=== PATIENT | male | born 1935 | race Caucasian/White ===

== ENCOUNTER → 2016-11-03 | Outpatient (REF) | payer MEDICARE, OTHER ==
[~2016-11-03] MED LIST: /DULO30CA OR; /PANT40TA OR; /PRAV20TA PO; /ROPI5TA PO; /TAMS4CA OR; ADVI200C5 PO; ALTA10CA OR; ANTI25TA OR; ARIC10TA OR; ARIC10TA PO; ARIC5TAB OR; ASPI81TA83 OR; ASPI81TAEC PO; ATOR40TA PO; CIPR500T3 PO; CIPR500T89 PO; CLOP75TA2 PO; COMBAER6 INH; COMBIN INH; CYM; CYMB1CAP4 PO; DEPA500T2 OR; DEPA500T2 PO; DETR4CAP PO; DYMI137S; FERR325T3 PO; FISH120012 PO; FOLBTAB3 PO; FOLI1TAB OR; FURO20TA2 PO; GABA-283 PO; GENE10SO PO; GLIM2TAB PO; HYDR25TA6 OR; HYDR25TA8 OR; IBUP200C PO; IMIQ5CRE EXT; JANUVIA PO; KEPP500T6 PO; KEPPRA OR; L-ME1TAB6 PO; LACT10SO8 OR; LEVA750T OR; LEVO25TA4 PO; LISI-542 PO; LOPR50TA OR; LOVAZA PO; MAGN500T2 OR; MECL-68 PO; MECL25TA2 OR; METF-414 PO; METF500T4 OR; METO25TAB PO; METR500T10 PO; MULTIVIT PO; NIAS10003 OR; NICO21PAT TD; PANT40TA2 PO; PSEU30SY OR; REQU1TAB16 PO; REQU2TAB3 PO; REST0.05 OU; ROPI1TAB PO; SALI0.653; SIMV20TA2 OR; TOPI100T OR; VITA100037 PO; VITA100066 PO; VITMTA PO; [UNRECOGNIZED DRUG - CODE] OU; [UNRECOGNIZED DRUG - CODE] PO; vesicare PO
[2016-11-03 19:26] LABS: MEAN CORPUSCULAR HEMOGLOBIN 32.5 pg (27.0-33.0); MEAN CORPUSCULAR HGB CONC 33.6 g/dl (32.0-36.5); RED CELL DISTRIBUTION WIDTH 13.8 % (11.5-14.5); WHITE BLOOD COUNT 12.1 K/mm3 (4.0-10.0)
[2016-11-03 19:51] LABS: VITAMIN B12 LEVEL 1553 PG/ML (247-911)
[2016-11-03 19:52] LABS: FOLATE > 24.0 NG/ML (>5.4)
[2016-11-03 19:54] LABS: ALBUMIN 3.2 GM/DL (3.2-5.2); ALBUMIN/GLOBULIN RATIO 0.82 (1.00-1.93); ALKALINE PHOSPHATASE 51 U/L (45-117); ALT/SGPT 25 U/L (12-78); ANION GAP 10 MEQ/L (8-16); AST/SGOT 16 U/L (15-37); BILIRUBIN,TOTAL 0.4 MG/DL (0.2-1.0); BLOOD UREA NITROGEN 21 MG/DL (7-18); CARBON DIOXIDE LEVEL 31 MEQ/L (21-32); CHLORIDE LEVEL 102 MEQ/L (98-107); CREATININE FOR GFR 0.95 MG/DL (0.70-1.30); FREE T4 1.03 NG/DL (0.76-1.46); GLOMERULAR FILTRATION RATE > 60.0 (>35); GLUCOSE, FASTING 85 MG/DL (83-110); POTASSIUM SERUM 4.1 MEQ/L (3.5-5.1); SODIUM LEVEL 143 MEQ/L (136-145); TOTAL PROTEIN 7.1 GM/DL (6.4-8.2)
== END ==
LOC: M SFHCADAM 14:33
PROVIDERS: ATTEND Family Medicine
DX: R29.898 Other symptoms and signs involving the musculoskeletal system (principal); G47.10 Hypersomnia, unspecified; G62.9 Polyneuropathy, unspecified; R82.99 Other abnormal findings in urine; Z79.899 Other long term (current) drug therapy
CPT/HCPCS: 80053; 80164; 81002; 82607; 82746; 83036; 84439; 84443; 85027; 85652; 86140; 87086; G0463

== ENCOUNTER → 2016-12-29 | Outpatient (CLI) | payer MEDICARE, OTHER ==
[2016-12-29 18:18] LABS: ALBUMIN 3.4 GM/DL (3.2-5.2); ALBUMIN/GLOBULIN RATIO 0.83 (1.00-1.93); ALKALINE PHOSPHATASE 48 U/L (45-117); ALT/SGPT 25 U/L (12-78); ANION GAP 7 MEQ/L (8-16); AST/SGOT 18 U/L (15-37); BILIRUBIN,TOTAL 0.3 MG/DL (0.2-1.0); BLOOD UREA NITROGEN 22 MG/DL (7-18); CALCIUM LEVEL 8.9 MG/DL (8.8-10.2); CARBON DIOXIDE LEVEL 35 MEQ/L (21-32); CHLORIDE LEVEL 101 MEQ/L (98-107); CHOLESTEROL LEVEL 115 MG/DL (<200); CREATININE FOR GFR 1.02 MG/DL (0.70-1.30); FERRITIN 40 NG/ML (26-388); FREE T4 0.95 NG/DL (0.76-1.46); GLOMERULAR FILTRATION RATE > 60.0 (>35); GLUCOSE, FASTING 113 MG/DL (83-110); PERCENT SATURATION 15.5 % (19.7-37.4); POTASSIUM SERUM 5.1 MEQ/L (3.5-5.1); SODIUM LEVEL 143 MEQ/L (136-145); TOTAL IRON BINDING CAPACITY 335 UG/DL (250-450); TOTAL PROTEIN 7.5 GM/DL (6.4-8.2); TRIGLYCERIDES LEVEL 207 MG/DL (<150)
[2016-12-29 18:40] LABS: MEAN CORPUSCULAR HEMOGLOBIN 30.8 pg (27.0-33.0); MEAN CORPUSCULAR HGB CONC 31.8 g/dl (32.0-36.5); MEAN CORPUSCULAR VOLUME 96.9 fl (80.0-96.0); RED CELL DISTRIBUTION WIDTH 13.8 % (11.5-14.5); RETIC HEMOGLOBIN CONTENT CHr 29.8 PG (24-36); RETICULOCYTE % ADVIA2120 2.4 % (0.5-1.5); WHITE BLOOD COUNT 10.6 K/mm3 (4.0-10.0)
== END ==
LOC: M SMT 10:39
PROVIDERS: ATTEND Family Medicine
DX: K62.7 Radiation proctitis (principal); D50.9 Iron deficiency anemia, unspecified; I25.10 Atherosclerotic heart disease of native coronary artery without angina pectoris; E03.9 Hypothyroidism, unspecified; E11.40 Type 2 diabetes mellitus with diabetic neuropathy, unspecified

== ENCOUNTER → 2017-02-27 | Outpatient (REF) | payer MEDICARE, OTHER ==
[2017-02-27 20:23] LABS: MICROSCOPIC INDICATED? MAN YES (NO)
[2017-02-27 20:24] LABS: BACTERIA, URINE MOD AMOUNT; HYALINE CAST, URINE NONE SEEN /lpf (0-1); MICROSCOPIC EXAM PERFORMED; RBC, URINE TNTC /hpf (0-3); SQUAMOUS EPITHELIAL CELL URINE NONE SEEN /hpf (SMALL AMT)
== END ==
LOC: M LAB REF 19:10
PROVIDERS: ATTEND Family Medicine
DX: R31.9 Hematuria, unspecified (principal)
CPT/HCPCS: 81000; 87086; 99497; G0463

== ENCOUNTER → 2017-03-19 | Outpatient (CLI) | payer MEDICARE, OTHER | LOC: M SMT 15:15 | PROVIDERS: ATTEND Urology | DX: C61 Malignant neoplasm of prostate (principal); Z79.899 Other long term (current) drug therapy; E78.00 Pure hypercholesterolemia, unspecified; R60.9 Edema, unspecified; E11.9 Type 2 diabetes mellitus without complications; I10 Essential (primary) hypertension; F17.210 Nicotine dependence, cigarettes, uncomplicated; Z95.5 Presence of coronary angioplasty implant and graft ==

== ENCOUNTER → 2017-03-19 | Outpatient (CLI) | payer MEDICARE, OTHER ==
[2017-03-19 17:02] LABS: ANION GAP 8 MEQ/L (8-16); BLOOD UREA NITROGEN 18 MG/DL (7-18); CALCIUM LEVEL 9.1 MG/DL (8.8-10.2); CARBON DIOXIDE LEVEL 31 MEQ/L (21-32); CHLORIDE LEVEL 102 MEQ/L (98-107); CREATININE FOR GFR 1.07 MG/DL (0.70-1.30); GLOMERULAR FILTRATION RATE > 60.0 (>35); GLUCOSE, FASTING 150 MG/DL (83-110); POTASSIUM SERUM 4.5 MEQ/L (3.5-5.1); SODIUM LEVEL 141 MEQ/L (136-145)
[2017-03-19 18:20] LABS: MEAN CORPUSCULAR HEMOGLOBIN 30.5 pg (27.0-33.0); MEAN CORPUSCULAR HGB CONC 31.6 g/dl (32.0-36.5); MEAN CORPUSCULAR VOLUME 96.5 fl (80.0-96.0); RED CELL DISTRIBUTION WIDTH 14.8 % (11.5-14.5); WHITE BLOOD COUNT 9.6 K/mm3 (4.0-10.0)
== END ==
LOC: M SMT 15:19
PROVIDERS: ATTEND Internal Medicine Cardiovascular Disease
DX: E78.00 Pure hypercholesterolemia, unspecified (principal); R60.9 Edema, unspecified; E11.9 Type 2 diabetes mellitus without complications; I10 Essential (primary) hypertension; F17.210 Nicotine dependence, cigarettes, uncomplicated; Z95.5 Presence of coronary angioplasty implant and graft

== ENCOUNTER → 2017-03-23 | Outpatient (CLI) | payer MEDICARE, OTHER | LOC: M SMT 15:12 | PROVIDERS: ATTEND Physician Assistant Medical | DX: R79.81 Abnormal blood-gas level (principal) ==

== ENCOUNTER → 2017-04-06 | Outpatient (REF) | payer MEDICARE, OTHER ==
[2017-04-06 12:13] LABS: MEAN CORPUSCULAR HEMOGLOBIN 29.3 pg (27.0-33.0); MEAN CORPUSCULAR HGB CONC 32.7 g/dl (32.0-36.5); MEAN CORPUSCULAR VOLUME 89.7 fl (80.0-96.0); RED CELL DISTRIBUTION WIDTH 15.1 % (11.5-14.5); WHITE BLOOD COUNT 10.3 K/mm3 (4.0-10.0)
[2017-04-06 13:30] LABS: ALBUMIN 3.4 GM/DL (3.2-5.2); ALBUMIN/GLOBULIN RATIO 0.81 (1.00-1.93); ALKALINE PHOSPHATASE 58 U/L (45-117); ANION GAP 10 MEQ/L (8-16); AST/SGOT 26 U/L (15-37); BILIRUBIN,TOTAL 0.3 MG/DL (0.2-1.0); BLOOD UREA NITROGEN 15 MG/DL (7-18); CALCIUM LEVEL 8.7 MG/DL (8.8-10.2); CARBON DIOXIDE LEVEL 27 MEQ/L (21-32); CHLORIDE LEVEL 103 MEQ/L (98-107); FERRITIN 11 NG/ML (26-388); GLOMERULAR FILTRATION RATE > 60.0 (>35); GLUCOSE, FASTING 167 MG/DL (83-110); PERCENT SATURATION 6.4 % (19.7-37.4); POTASSIUM SERUM 4.4 MEQ/L (3.5-5.1); SODIUM LEVEL 140 MEQ/L (136-145); TOTAL IRON BINDING CAPACITY 357 UG/DL (250-450); TOTAL PROTEIN 7.6 GM/DL (6.4-8.2)
[2017-04-06 13:33] LABS: ALT/SGPT 36 U/L (12-78)
== END ==
LOC: M LABNEURO 11:26
PROVIDERS: ATTEND Family Medicine
DX: D50.9 Iron deficiency anemia, unspecified (principal); E11.40 Type 2 diabetes mellitus with diabetic neuropathy, unspecified; R79.9 Abnormal finding of blood chemistry, unspecified

== ENCOUNTER → 2017-04-06 | Outpatient (REF) | payer MEDICARE, OTHER | LOC: M LABNEURO 11:28 | PROVIDERS: ATTEND Physician Assistant Medical | DX: R79.9 Abnormal finding of blood chemistry, unspecified (principal) ==

== ENCOUNTER → 2017-04-19 | Outpatient (REF) | payer MEDICARE, OTHER ==
[~2017-04-19] MED LIST changes: +ALBU83IN INH; -ARIC10TA PO; +ARIC1TAB2 PO; -ATOR40TA PO; +ATOR40TA75 PO; +AZIT-12 PO; +CEFD1CAP8 PO; +CEFT500T3 PO; +DOXY100C37 PO; +DOXY100T PO; +FLOM5CAP PO; +ISOS30TA4 PO; +KEPP10002 PO; +KEPP1TAB PO; -KEPP500T6 PO; +LEVO25TA5 PO; +LIDO1OIN2 TOP; +LIDO5OIN28 TOP; +METF10004 PO; +METO25TA4 PO; +METR1TAB66 PO; -METR500T10 PO; +PRED20TA PO; +PRESCAP6 PO; +REST0.05 OP; +SALI0.6523; -SALI0.653; +SERO1TAB3 PO; +TYLE650T35 PO; +areds PO; +oxygen
== END ==
LOC: M LABSMT 14:06
PROVIDERS: ATTEND Physician Assistant
DX: R31.0 Gross hematuria (principal)

== ENCOUNTER → 2017-04-20 | Outpatient (CLI) | payer MEDICARE, OTHER ==
--- NOTE | 2017-04-20 16:39 | REP ---
Clinical: Microscopic hematuria . Comparison: 03/07/2016 . Technique: PA and lateral. Findings: The mediastinum and cardiac silhouette are normal. The lung morrison demonstrate chronic interstitial changes without acute consolidation, effusion, or pneumothorax. The skeletal structures are intact and normal. Impression: 1. No acute cardiopulmonary process. Signed by Ramirez Koenig MD 04/20/2017 04:30 P
[2017-04-20 19:28] LABS: MEAN CORPUSCULAR HGB CONC 31.8 g/dl (32.0-36.5); MEAN CORPUSCULAR VOLUME 88.2 fl (80.0-96.0); RED CELL DISTRIBUTION WIDTH 15.2 % (11.5-14.5); WHITE BLOOD COUNT 9.9 K/mm3 (4.0-10.0)
[2017-04-20 19:35] LABS: INR 0.92
[2017-04-20 19:37] LABS: ANION GAP 9 MEQ/L (8-16); BLOOD UREA NITROGEN 14 MG/DL (7-18); CALCIUM LEVEL 8.7 MG/DL (8.8-10.2); CARBON DIOXIDE LEVEL 26 MEQ/L (21-32); CHLORIDE LEVEL 103 MEQ/L (98-107); CREATININE FOR GFR 0.97 MG/DL (0.70-1.30); GLOMERULAR FILTRATION RATE > 60.0 (>35); GLUCOSE, FASTING 177 MG/DL (83-110); POTASSIUM SERUM 4.2 MEQ/L (3.5-5.1); SODIUM LEVEL 138 MEQ/L (136-145)
== END ==
LOC: M WUC 16:14
PROVIDERS: ATTEND Urology
DX: R31.29 Other microscopic hematuria (principal)

== ENCOUNTER → 2017-05-03 | Day surgery (SDC) | payer MEDICARE, OTHER ==
[~2017-05-03] VITALS: Ht 182.9 cm; Wt 100.2 kg
[~2017-05-03] MED LIST changes: +ACETAMINOPHEN 650MG ER TAB (TYLENOL ARTHRITIS) PO SCH; +ALBUTEROL 6.7GM INHALER **FOR ANES. CART/OMNICELL ONLY As Ordered ONE; +ALBUTEROL SULFATE 2.5 MG/0.5 ML INH NEB SOLN INH ONE; +CIPROFLOXACIN 500 MG TAB PO SCH; +ESMOLOL INJ 100MG/10ML VIAL As Ordered ONE; +GLYCOPYRROLATE INJ 0.2 MG/ML 2 ML VIAL As Ordered ONE; +LIDOCAINE 2% INJ 100 MG/5 ML SDV (FOR ANES.) As Ordered ONE; +LR 1,000 ML IV ONE; +LR 1,000 ML IV SCH; +MEPERIDINE INJ 25 MG/ML VIAL (J2175) IV PRN; +METOCLOPRAMIDE INJ 10MG/2ML VIAL (J2765) IV PRN; +MIDAZOLAM INJ 2 MG/2 ML VIAL (J2250) As Ordered ONE; +NEOSTIGMINE 1MG/ML 5 ML SYRINGE (J2710) As Ordered ONE; +ONDANSETRON 4MG/2ML VIAL (J2405) As Ordered ONE; +ONDANSETRON 4MG/2ML VIAL (J2405) IV PRN; +PHENYLephrine HCL 500 MCG/5 ML (100MCG/ML) SYRINGE (J2370) As Ordered ONE; +PROPOFOL 200 MG/20 ML VIAL As Ordered ONE; +ROCURONIUM BROMIDE 50 MG/5 ML VIAL/SYRINGE As Ordered ONE; +SUCCINYLCHOLINE 100 MG/5 ML SYRINGE (J0330) As Ordered ONE; +dexameTHASONE 4 MG/ML 1ML VIAL (J1100) As Ordered ONE; +fentaNYL 100 MCG/2 ML INJECTION (J3010) As Ordered ONE; +fentaNYL 100 MCG/2 ML INJECTION (J3010) IV PRN
[2017-05-03 15:35] VITALS: BP 155/75
--- NOTE | 2017-05-04 22:35 | RO ---
DATE OF PROCEDURE: 05/03/2017 PREPROCEDURE DIAGNOSIS: Bladder tumor. POSTPROCEDURE DIAGNOSIS: Bladder tumor lateral wall near the bladder neck, about 2 cm in diameter. FINDINGS: Bladder tumor about 2 cm in diameter near the bladder neck at the level of the right lateral side of the bladder wall and bladder neck. PROCEDURE: Cystoscopy, plus exam under anesthesia, plus transurethral resection of bladder tumor. SURGEON: Michael Bauer MD METALLURGY TEACHER: None. ANESTHESIA: General. COMPLICATIONS: None. ESTIMATED BLOOD LOSS: N/A. HISTORY OF THE PRESENT ILLNESS: An 81-year-old male patient who had a cystoscopy performed at [facility] [place], which actually showed a bladder tumor at the level of the bladder neck and lateral wall. For this reason, he has consented for a cystoscopy, plus exam under anesthesia, plus transurethral resection of bladder tumor. DESCRIPTION OF PROCEDURE: In a patient under general anesthesia in supine modified low lithotomy position after prepping and draping the area of concern, which included the entire genitalia and abdomen, we started by introducing a cystoscope, 21-Andorran in diameter with a 30-degree lens. The urethral meatus, penile urethra, bulbar urethra and membranous urethra were totally normal. The prostate had lateral lobes touching, one small middle lobe. The trigone was intact and both ureteral orifices were seen excreting clear urine. The bladder had multiple trabeculations. It had a 2 cm area near the bladder neck on the right side of the patient and very lateral close to the right ureteral orifice, flat and erythematous lesion. At that moment in time, we grabbed the resectoscope and resected all the area up to the bladder neck, including some prostatic tissue. We sent the chips for permanent pathology analysis, we fulgurated the base and then took out the resectoscope and placed the 20-Andorran Pollack catheter, three-way, plugged the three-way and put the Oneill to gravity, inflated the balloon to 20 mL. PLAN: The patient will go home today with a Oneill. He will come back on Sunday for a voiding trial. He will go home with antibiotic and pain medication. There were no complications of surgery.
== END | disposition home or self-care (01) ==
LOC: M SDC 08:29
PROVIDERS: ATTEND Urology
DX: D30.3 Benign neoplasm of bladder (principal); E11.40 Type 2 diabetes mellitus with diabetic neuropathy, unspecified; K62.7 Radiation proctitis; I11.9 Hypertensive heart disease without heart failure; C61 Malignant neoplasm of prostate; E03.9 Hypothyroidism, unspecified; J44.9 Chronic obstructive pulmonary disease, unspecified; R19.7 Diarrhea, unspecified; R21 Rash and other nonspecific skin eruption; F03.90 Unspecified dementia, unspecified severity, without behavioral disturbance, psychotic disturbance, mood disturbance, and anxiety; G43.909 Migraine, unspecified, not intractable, without status migrainosus; R56.9 Unspecified convulsions; J45.909 Unspecified asthma, uncomplicated; G47.33 Obstructive sleep apnea (adult) (pediatric); G47.10 Hypersomnia, unspecified; I25.10 Atherosclerotic heart disease of native coronary artery without angina pectoris; M48.06 Spinal stenosis, lumbar region; R29.898 Other symptoms and signs involving the musculoskeletal system; J96.21 Acute and chronic respiratory failure with hypoxia; R60.9 Edema, unspecified; E11.51 Type 2 diabetes mellitus with diabetic peripheral angiopathy without gangrene; R06.02 Shortness of breath; I73.9 Peripheral vascular disease, unspecified; I10 Essential (primary) hypertension; F17.210 Nicotine dependence, cigarettes, uncomplicated; I65.29 Occlusion and stenosis of unspecified carotid artery; R06.83 Snoring; E78.00 Pure hypercholesterolemia, unspecified; Z91.041 Radiographic dye allergy status; Z88.8 Allergy status to other drugs, medicaments and biological substances; Z79.899 Other long term (current) drug therapy; Z79.82 Long term (current) use of aspirin; Z79.84 Long term (current) use of oral hypoglycemic drugs; Z92.21 Personal history of antineoplastic chemotherapy; Z85.828 Personal history of other malignant neoplasm of skin; Z95.5 Presence of coronary angioplasty implant and graft; Z78.9 Other specified health status
CPT/HCPCS: 36415; 52235; 86850; 86900; 86901; 88307; J0330; J0690; J2250; J2370; J2405; J2710; J3010

== ENCOUNTER → 2017-05-14 | Outpatient (REF) | payer MEDICARE, OTHER ==
[~2017-05-14] MED LIST changes: -ACETAMINOPHEN 650MG ER TAB (TYLENOL ARTHRITIS) PO SCH; -ALBUTEROL 6.7GM INHALER **FOR ANES. CART/OMNICELL ONLY As Ordered ONE; -ALBUTEROL SULFATE 2.5 MG/0.5 ML INH NEB SOLN INH ONE; -CIPROFLOXACIN 500 MG TAB PO SCH; -ESMOLOL INJ 100MG/10ML VIAL As Ordered ONE; -GLYCOPYRROLATE INJ 0.2 MG/ML 2 ML VIAL As Ordered ONE; -LIDOCAINE 2% INJ 100 MG/5 ML SDV (FOR ANES.) As Ordered ONE; -LR 1,000 ML IV ONE; -LR 1,000 ML IV SCH; -MEPERIDINE INJ 25 MG/ML VIAL (J2175) IV PRN; -METOCLOPRAMIDE INJ 10MG/2ML VIAL (J2765) IV PRN; -MIDAZOLAM INJ 2 MG/2 ML VIAL (J2250) As Ordered ONE; -NEOSTIGMINE 1MG/ML 5 ML SYRINGE (J2710) As Ordered ONE; -ONDANSETRON 4MG/2ML VIAL (J2405) As Ordered ONE; -ONDANSETRON 4MG/2ML VIAL (J2405) IV PRN; -PHENYLephrine HCL 500 MCG/5 ML (100MCG/ML) SYRINGE (J2370) As Ordered ONE; -PROPOFOL 200 MG/20 ML VIAL As Ordered ONE; -ROCURONIUM BROMIDE 50 MG/5 ML VIAL/SYRINGE As Ordered ONE; -SUCCINYLCHOLINE 100 MG/5 ML SYRINGE (J0330) As Ordered ONE; -dexameTHASONE 4 MG/ML 1ML VIAL (J1100) As Ordered ONE; -fentaNYL 100 MCG/2 ML INJECTION (J3010) As Ordered ONE; -fentaNYL 100 MCG/2 ML INJECTION (J3010) IV PRN
== END ==
LOC: M SMT 17:01
PROVIDERS: ATTEND Nurse Practitioner Women's Health
DX: R31.0 Gross hematuria (principal)

== ENCOUNTER → 2017-05-21 | Outpatient (REF) | payer MEDICARE, OTHER | LOC: M SMT 16:14 | PROVIDERS: ATTEND Urology | DX: R30.0 Dysuria (principal) ==

== ENCOUNTER → 2017-06-20 | Outpatient (REF) | payer MEDICARE, OTHER | LOC: M SMT 17:12 | PROVIDERS: ATTEND Urology | DX: R39.9 Unspecified symptoms and signs involving the genitourinary system (principal) | CPT/HCPCS: 51798; 81001; 87086; G0463 ==

== ENCOUNTER 2017-08-05 14:47 | Emergency (ER) | payer MEDICARE, OTHER ==
[~2017-08-05] VITALS: Ht 182.9 cm; Wt 100.0 kg
[~2017-08-05 14:47] MED LIST changes: -AZIT-12 PO; -CEFD1CAP8 PO; -CEFT500T3 PO; -DOXY100C37 PO; -DOXY100T PO; -KEPP10002 PO; -LIDO5OIN28 TOP; -PRED20TA PO; -PRESCAP6 PO; -REST0.05 OP; -SERO1TAB3 PO; -oxygen
[2017-08-05] MEDS ORDERED: SERO1TAB3 PO (15:08)
[2017-08-05] MEDS ORDERED: oxygen (15:08)
[2017-08-05] MEDS ORDERED: REST0.05 OP (15:08)
[2017-08-05] MEDS ORDERED: IPRATROPIUM 0.5MG/ALBUTEROL 2.5MG INH SOL UD 3ML (DUONEB)(J7620) NEB ONE (16:00)
[2017-08-05 16:09] LABS: BASO # 0.1 10^3/uL (0.0-0.2); BASO % 0.5 % (0.0-1.0); EOS # 0.1 10^3/uL (0.0-0.50); LYMPH # 1.8 10^3/uL (1.5-4.5); LYMPH % 17.1 % (24.0-44.0); MEAN CORPUSCULAR HEMOGLOBIN 25.4 pg (27.0-33.0); MEAN CORPUSCULAR HGB CONC 30.6 g/dl (32.0-36.5); MEAN CORPUSCULAR VOLUME 83.3 fl (80.0-96.0); MONO # 1.1 10^3/uL (0.0-0.8); MONO % 9.9 % (0.0-5.0); NEUTROPHILS # 7.5 10^3/uL (1.8-7.7); NEUTROPHILS % 70.5 % (36.0-66.0); PLATELET COUNT, AUTOMATED 271 10^3/uL (150-450); RED CELL DISTRIBUTION WIDTH 17.8 % (11.5-14.5); WHITE BLOOD COUNT 10.6 10^3/uL (4.0-10.0)
[2017-08-05 16:21] LABS: ALBUMIN 3.5 GM/DL (3.2-5.2); ALBUMIN/GLOBULIN RATIO 0.81 (1.00-1.93); ALKALINE PHOSPHATASE 57 U/L (45-117); ALT/SGPT 17 U/L (12-78); ANION GAP 7 MEQ/L (8-16); AST/SGOT 10 U/L (15-37); BILIRUBIN,DIRECT < 0.1 MG/DL (0.0-0.2); BILIRUBIN,TOTAL 0.3 MG/DL (0.2-1.0); BLOOD UREA NITROGEN 17 MG/DL (7-18); CALCIUM LEVEL 9.5 MG/DL (8.8-10.2); CARBON DIOXIDE LEVEL 30 MEQ/L (21-32); CHLORIDE LEVEL 102 MEQ/L (98-107); CREATININE FOR GFR 0.96 MG/DL (0.70-1.30); GLOMERULAR FILTRATION RATE > 60.0 (>35); GLUCOSE, FASTING 152 MG/DL (83-110); POTASSIUM SERUM 4.1 MEQ/L (3.5-5.1); SODIUM LEVEL 139 MEQ/L (136-145); TOTAL PROTEIN 7.8 GM/DL (6.4-8.2)
[2017-08-05 16:39] LABS: INR 0.95
--- NOTE | 2017-08-05 17:00 | REP ---
Portable chest, 04:03 p.m., single AP view, patient sitting: Comparison is 04/20/2017. The lung morrison are clear. The cardiac size is normal. The juele, mediastinum, and bony thorax are unremarkable. Impression: Negative portable chest. There is no interval change. Signed by Johnny Mcmullen MD 08/05/2017 04:51 P
[2017-08-05] MEDS ORDERED: PRED20TA PO (17:38)
[2017-08-05] MEDS ORDERED: CEFT500T3 PO (17:40)
[2017-08-05] MEDS ORDERED: methylPREDNISolone INJ 125 MG/2 ML VIAL (J2930) IV ONE (17:45)
[2017-08-05] MEDS ORDERED: DOXY100C37 PO (17:53)
--- NOTE | 2017-08-05 19:10 | REPUSA ---
CLINICAL HISTORY: Edema. COMMENTS: Real time sonography with duplex doppler of the extremities bilaterally was performed with attention to the major deep venous structures. Evaluation reveals the common femoral, superficial femoral and popliteal veins bilaterally to be comp letely compressible without intraluminal thrombus. There is normal spontaneous phasic flow and augmen tation in all deep veins. The greater saphenous/common femoral vein junctions are patent bilaterally. IMPRESSION: No evidence of DVT in the lower extremities bilaterally. Thank you for your kind referral of this patient.
[2017-08-05 19:46] VITALS: BP 182/79
--- NOTE | 2017-08-06 21:01 | ECGEPIP ---
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
== END 2017-08-05 19:47 | disposition home or self-care (01) ==
LOC: M ED 14:47
DX: J44.1 Chronic obstructive pulmonary disease with (acute) exacerbation (principal)

== ENCOUNTER 2017-08-07 13:44 | Inpatient (IN) | payer MEDICARE, OTHER ==
[~2017-08-07] VITALS: Ht 182.9 cm; Wt 94.5 kg
[2017-08-07] MEDS: HumaLOG INSULIN (NovoLOG) PER UNIT SC SCH (01:53)
[~2017-08-07 13:44] MED LIST changes: +CEFT500T3 PO; +DOXY100C37 PO; +PRED20TA PO; +REST0.05 OP; +SERO1TAB3 PO; +oxygen
[2017-08-07] MEDS ORDERED: IPRATROPIUM 0.5MG/ALBUTEROL 2.5MG INH SOL UD 3ML (DUONEB)(J7620) NEB ONE (16:45)
[2017-08-07 17:41] LABS: BASO % 0.2 % (0.0-1.0); IMMATURE GRANULOCYTE % 0.8 % (0-0); LYMPH # 1.4 10^3/uL (1.5-4.5); MEAN CORPUSCULAR HEMOGLOBIN 24.8 pg (27.0-33.0); MEAN CORPUSCULAR HGB CONC 30.5 g/dl (32.0-36.5); MEAN CORPUSCULAR VOLUME 81.3 fl (80.0-96.0); MONO # 0.4 10^3/uL (0.0-0.8); MONO % 2.4 % (0.0-5.0); NEUTROPHILS # 13.8 10^3/uL (1.8-7.7); NEUTROPHILS % 87.6 % (36.0-66.0); PLATELET COUNT, AUTOMATED 273 10^3/uL (150-450); RED CELL DISTRIBUTION WIDTH 17.8 % (11.5-14.5); WHITE BLOOD COUNT 15.7 10^3/uL (4.0-10.0)
[2017-08-07 17:55] LABS: ABG HCO3 28.1 MEQ/L (22.0-26.0); ABG PARTIAL PRESSURE CO2 40.5 mmHg (35.0-45.0); ABG PARTIAL PRESSURE O2 67.7 mmHg (75.0-100.0); ABG STANDARD HCO3 27.9 MEQ/L (22.0-26.0); ABG TOTAL CO2 29.3 MEQ/L (23.0-31.0); ABG pH (ARTERIAL) 7.459 UNITS (7.350-7.450)
[2017-08-07 18:21] LABS: ALBUMIN 3.6 GM/DL (3.2-5.2); ALBUMIN/GLOBULIN RATIO 0.84 (1.00-1.93); ALKALINE PHOSPHATASE 50 U/L (45-117); ALT/SGPT 18 U/L (12-78); AST/SGOT 7 U/L (15-37); BILIRUBIN,DIRECT < 0.1 MG/DL (0.0-0.2); BILIRUBIN,TOTAL 0.3 MG/DL (0.2-1.0); TOTAL PROTEIN 7.9 GM/DL (6.4-8.2)
[2017-08-07 18:22] LABS: ANION GAP 9 MEQ/L (8-16); BLOOD UREA NITROGEN 23 MG/DL (7-18); CALCIUM LEVEL 9.5 MG/DL (8.8-10.2); CARBON DIOXIDE LEVEL 29 MEQ/L (21-32); CHLORIDE LEVEL 100 MEQ/L (98-107); GLOMERULAR FILTRATION RATE > 60.0 (>35); GLUCOSE, FASTING 148 MG/DL (83-110); POTASSIUM SERUM 4.1 MEQ/L (3.5-5.1); SODIUM LEVEL 138 MEQ/L (136-145)
--- NOTE | 2017-08-07 18:49 | REP ---
CHEST PA AND LATERAL: 08/07/2017. Clinical history: Dyspnea and cough. Comparison: 08/05/2017, 04/20/2017. Findings: Sternotomy wires are again seen but without cardiomegaly, vascular redistribution or pulmonary edema. Some minor basilar fibrotic changes noted. No effusion, infiltrate, atelectasis or mass. The mediastinal, hilar and aortic contours grossly intact. Airway intact. The bony thorax shows no acute compression deformity or focal lesion. Impression: 1. No acute cardiopulmonary disease. Stable chest. Signed by Cam Sims MD 08/07/2017 08:27 P
--- NOTE | 2017-08-07 19:23 | ECGEPIP ---
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
[2017-08-07] MEDS ORDERED: NS 1,000 ML IV ONE (20:00)
[2017-08-07] MEDS ORDERED: AZITHROMYCIN INJ 500 MG, VIAL MATE ADAPTER 1 EACH in D5W 250 ML IV ONE (20:15)
[2017-08-07] MEDS ORDERED: cefTRIAXone SOD 1 GM in D5W 50 ML IV ONE (20:15)
[2017-08-07 20:47] LABS: MAGNESIUM LEVEL 1.9 MG/DL (1.8-2.4)
[2017-08-07] MEDS ORDERED: KEPP10002 PO (20:49)
[2017-08-07] MEDS ORDERED: PRESCAP6 PO (20:49)
[2017-08-07] MEDS ORDERED: PRED20TA PO (20:49)
[2017-08-07] MEDS ORDERED: DOXY100T PO (20:49)
[2017-08-07] MEDS ORDERED: LIDO5OIN28 TOP (20:51)
[2017-08-07] MEDS ORDERED: REST0.05 OU (20:51)
[2017-08-07] MEDS ORDERED: QUEtiapine FUMARATE 25 MG TAB PO SCH (21:00)
[2017-08-07] MEDS ORDERED: ACETAMINOPHEN TAB 650MG DOSE (2X325MG) PO PRN (21:15)
[2017-08-07] MEDS ORDERED: ONDANSETRON 4MG/2ML VIAL (J2405) IV PRN (21:15)
[2017-08-07] MEDS ORDERED: IPRATROPIUM 0.5MG/ALBUTEROL 2.5MG INH SOL UD 3ML (DUONEB)(J7620) NEB PRN (21:15)
[2017-08-07] MEDS ORDERED: amLODIPine 5 MG TAB PO ONE (22:15)
[2017-08-07] MEDS ORDERED: LIDOCAINE 5% OINT 30 GM TOP PRN (22:15)
[2017-08-07 22:19] VITALS: BP 179/68
[2017-08-07] MEDS: methylPREDNISolone INJ 125 MG/2 ML VIAL (J2930) IV SCH (22:34)
[2017-08-07] MEDS: DIVALPROEX 500MG *ER* TAB PO SCH (22:46)
[2017-08-07] MEDS: DULoxetine 20 MG CAP (CYMBALTA) PO SCH (22:46)
[2017-08-07] MEDS: rOPINIRole 1MG TAB PO SCH (22:47)
[2017-08-08] MEDS ORDERED: SODIUM CHLORIDE 0.9% 1000 ML IV ONE
[2017-08-08] MEDS ORDERED: GLUCOSE 4 GM CHEW TABLET PO PRN (00:45)
[2017-08-08] MEDS ORDERED: DEXTROSE 50% 50 ML SYRINGE IV PRN (00:45)
[2017-08-08] MEDS ORDERED: GLUCAGON FOR INJ 1 MG VIAL (J1610) SC PRN (00:45)
[2017-08-08 01:20] VITALS: BP 174/78
[2017-08-08] MEDS: IPRATROPIUM 0.5MG/ALBUTEROL 2.5MG INH SOL UD 3ML (DUONEB)(J7620) NEB SCH ×4 (02:31→19:20)
[2017-08-08 02:32] VITALS: O2SAT 97
[2017-08-08 05:36] LABS: BASO % 0.2 % (0.0-1.0); IMMATURE GRANULOCYTE % 1.1 % (0-0); LYMPH # 1.8 10^3/uL (1.5-4.5); LYMPH % 10.7 % (24.0-44.0); MEAN CORPUSCULAR HEMOGLOBIN 25.2 pg (27.0-33.0); MEAN CORPUSCULAR VOLUME 81.3 fl (80.0-96.0); MONO # 0.6 10^3/uL (0.0-0.8); MONO % 3.2 % (0.0-5.0); NEUTROPHILS # 14.4 10^3/uL (1.8-7.7); NEUTROPHILS % 84.8 % (36.0-66.0); PLATELET COUNT, AUTOMATED 258 10^3/uL (150-450); RED CELL DISTRIBUTION WIDTH 17.7 % (11.5-14.5)
[2017-08-08 05:49] LABS: ANION GAP 8 MEQ/L (8-16); CALCIUM LEVEL 9.2 MG/DL (8.8-10.2); CARBON DIOXIDE LEVEL 29 MEQ/L (21-32); CHLORIDE LEVEL 102 MEQ/L (98-107); CREATININE FOR GFR 0.93 MG/DL (0.70-1.30); GLOMERULAR FILTRATION RATE > 60.0 (>35); GLUCOSE, FASTING 172 MG/DL (83-110); POTASSIUM SERUM 4.1 MEQ/L (3.5-5.1); SODIUM LEVEL 139 MEQ/L (136-145)
[2017-08-08 05:50] LABS: BLOOD UREA NITROGEN 21 MG/DL (7-18); FERRITIN 7 NG/ML (26-388)
[2017-08-08 06:00] VITALS: BP 154/62
[2017-08-08] MEDS: methylPREDNISolone INJ 125 MG/2 ML VIAL (J2930) IV SCH ×3 (06:02→22:53)
[2017-08-08] MEDS: HEPARIN SOD (PORCINE) 5000 UNITS/ML VIAL SC SCH ×3 (06:02→21:45)
--- NOTE | 2017-08-08 07:19 | HPE ---
DATE OF ADMISSION: 08/07/2017 TIME PATIENT WAS SEEN: 08/07/2017 at around 9:00 p.m. PRIMARY CARE PROVIDER: Dr. Lucio PATIENT SAFETY COORDINATOR: Dr. Harris CHIEF COMPLAINT: Shortness of breath. 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 The patient was in the emergency room at that time and was given doxycycline and also prednisone. However, the patient's symptoms did not improve much. During the interview, the patient's sister and the patient's were also present to help with some of the history. However, the patient appears to be a very poor historian with slow mentation and poor memory. The patient however denies any chest pain, any abdominal pains, nausea, vomiting, diarrhea, or constipation. He admits to some cough and whitish sputum production. The patient's did state that the patient has increased shortness of breath laying down and it started recently, however, there is no swelling in the extremities. The patient does take Lasix at home for patient's CHF. Otherwise, the patient also has chronic diarrhea which was usually five days out of seven days and gets better for two days. The patient does admit to some urinary incontinence however. ALLERGIES (The patient is allergic to): - RED DYE which gives him GI upset - METFORMIN gives him diarrhea - on report, he is also allergic to CEFUROXIME, CIPROFLOXACIN and both give patient confusion HOME MEDICATIONS (including): - albuterol 2.5 mg inhalation four times a day - Depakote ER 500 mg one tablet by mouth twice a day - doxycycline 100 mg one tablet by mouth twice a day - Cymbalta 20 mg one tablet by mouth twice a day - furosemide 20 mg one tablet by mouth daily - isosorbide mononitrate ER 30 mg one tablet by mouth daily - Keppra 1000 mg one tablet by mouth daily - Synthroid 25 mcg one tablet by mouth daily - lidocaine one topically four times a day as needed - lisinopril 5 mg one tablet by mouth at bedtime - metformin 1000 mg one tablet by mouth twice a day - metoprolol tartrate 25 mg one tablet by mouth daily - pantoprazole 40 mg one tablet by mouth daily - prednisone 20 mg one tablet by mouth three times a day - PreserVision one tablet by mouth twice a day - Seroquel 12.5 mg one tablet by mouth at bedtime - Restasis one drop in each eye twice a day - Requip 2 mg by mouth every evening - Flomax 0.4 mg one tablet by mouth daily PAST MEDICAL HISTORY (including): 1. Hypertension. 2. Coronary artery disease status post CABG times three in 2003. No stent was placed due to rectal bleeding. 3. CHF, appears to be diastolic with ejection fraction of 65%. 4. Hyperlipidemia. 5. Migraine, on Depakote. 6. Seizure disorder from migraine. 7. Type 2 diabetes. 8. Elevated ammonia level. 9. Prostate cancer status post radiation. 10. Vertigo. 11. COPD, likely bronchitis type. 12. Cardiac catheterization in 2003. 13. Squamous cell carcinoma of skin in 1992. 14. Degenerative disc disease. 15. Obstructive sleep apnea, noncompliant with CPAP. 16. Fatty liver. 17. Severe peripheral arterial disease. 18. Severe spinal stenosis. 19. Severe bilateral polyneuropathy of the leg. 20. Carotid stenosis status post endarterectomy. 21. Dementia with visual hallucination. PAST SURGICAL HISTORY (including): 1. CABG in 2003. 2. Right endarterectomy for right carotid. 3. Knee surgery. 4. Hernia surgery. 5. Appendectomy. 6. Back surgery. 7. Squamous cell carcinoma of the skin. 8. Stent placed in bilateral legs. 9. Abdominal stents. 10. History of colitis. 11. Cardiac catheterization in September 2016. SOCIAL HISTORY: The patient lives with and does have a cat and also a dog. 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 The patient currently smokes. The patient quit for a few months, however, had a rebound and usually smokes roughly one pack per day for at least 50 years. Denies any drinking or recreational drug use. FAMILY HISTORY: Patient's father and brother had myocardial infarction ([place]). Grandfather also had [place] and also diabetes in the rest of family. REVIEW OF SYSTEMS: GENERAL: The patient denies any recent traveling, any sick contact, any weight changes, any fever or chills. HEENT: Denies any changes with vision, smell, hearing or taste. CARDIOVASCULAR: Admits to shortness of breath. Admits to increased shortness of breath laying down, however, denies any palpitations. Denies any chest pain. PULMONARY: Admits to chronic hypoxic respiratory failure. On 2 liters of oxygen at home for COPD. Admits to increased shortness of breath in the past three days. GI: Admits to chronic diarrhea. Denies any abdominal pains, any nausea or vomiting, however. Denies any blood in the stool. : Denies any burning on urination or any blood in the urine. Admits to incontinence at times. MUSCULOSKELETAL: Denies any pain anywhere. Admits to burning sensation of the extremities which has been chronic. PSYCHIATRIC: Denies any anxiety or depression, however, the patient does have dementia, migraine and also history of seizure. NEUROLOGIC: No changes from baseline. No weakness on any side of his body. SKIN: Denies any new rash, lumps or bumps anywhere. HEMATOLOGY/ONCOLOGY: Does have a history of prostate cancer and also bladder tumor. PHYSICAL EXAMINATION: VITAL SIGNS: The patient had a temperature initially of 100.2, pulse 84, respirations 22, blood pressure elevated at 179/68, and oxygen was satting at 93 % on 3 liters of nasal cannula. GENERAL: The patient is an obese elderly male who was alert, awake, and oriented times three, however, has very slow mentation and appears to have a very poor memory and also was very hard of hearing. HEENT: Normocephalic, atraumatic. Extraocular motor intact. Mucosa moist. Neck supple. No neck lymphadenopathy. The patient does not have jugular venous distention (JVD). CARDIOVASCULAR: Regular rate and rhythm. There was 2/6 systolic heart murmur. LUNGS: Slight wheezing bilaterally with reduced breathing sounds bilaterally. ABDOMEN: Positive bowel sounds. Soft. Nontender. Nondistended. No peritoneal signs. No ecchymosis. EXTREMITIES: No edema, clubbing or cyanosis. SKIN: Warm and dry. NEUROLOGIC: Cranial nerves II-XII intact. No focal neurologic deficit. LABORATORIES: WBC 15.7, hemoglobin 11.3, hematocrit 37 with a platelet count of 273 and MCV of 81. Sodium 138, potassium 4.1, chloride 100, bicarbonate 29, BUN 23, creatinine 1, GFR greater than 60, fasting glucose 148, lactic acid 2.8. Repeat lactic acid was 3.1. Calcium 9.5. Magnesium 1.9. Total bilirubin 0.3, direct bilirubin less than 0.1. AST 7. ALT 18. Alkaline phosphatase 50. CK 52. CK-MB 2. Troponin less than 0.02. BNP was elevated at 1164, however, baseline is unknown. Protein 7.9. Albumin 3.6. The patient had an ABG that showed a pH of 7.46, pCO2 40.5, pCO2 67.7, saturation 93% with base excess of 4. The patient's urinalysis shows 1+ protein, 1+ leukocyte esterase, 24 WBCs. Blood culture times two is pending. The patient does have a PA and lateral chest x-ray that shows no acute cardiopulmonary disease. IMPRESSION: 82-year-old male with complicated past medical history most significantly coronary artery disease status post CABG as well as severe COPD on 2 liters of oxygen at home 24 hours a day, type 2 diabetes, diastolic heart failure, history of prostate cancer, with severe peripheral arterial disease who presented with: 1. Increased shortness of breath from baseline with an elevated temperature of 100.2 and also leukocytosis and lactic acidosis and also abnormal breathing sounds on physical examination, likely represents community acquired pneumonia. CURB 65 was calculated, he has a score of 2, which makes him having at least 6% mortality over 30 days, which would be best managed in hospital. The patient was started on Rocephin and azithromycin in the emergency room. Will continue. Also continue patient on IV steroids with Solu-Medrol 60 mg IV every 8 hours for possible COPD exacerbation. Will continue patient on oxygen with nasal cannula titrated between 88% and 92%. Continue DuoNebs. Continue to monitor patient. 2. Acute on chronic hypoxic respiratory failure, likely secondary to community acquired pneumonia. Continue to follow. Continue steroids, antibiotics and DuoNebs. 3. Suspected sepsis with WBC of 15.7, elevated temperature, as well as, lactic acidosis. Continue to monitor at this point due to elevated BNP. Will only give small boluses of IV fluid. Currently the patient does not look fluid overloaded however. There is no JVD and no lower extremity swelling and a negative chest x-ray. 4. Spot in the lung back in February 2017. The patient was due for a CT of chest. This may be worked up as outpatient, it is not an acute reason for patient to come to the hospital. Will continue to monitor. 5. Chronic diarrhea. Per patient's , it started after radiation for prostate cancer. Continue to monitor. 6. Primary metabolic alkalosis with superimposed respiratory alkalosis shown on ABG. Likely due to chronic diarrhea. Continue to monitor. 7. Bilateral lower extremity pain. Likely from severe peripheral arterial disease and represents claudication. This is a chronic issue. Continue to monitor. The patient does already followup with vascular surgery in [place], however, per patient's he was noncompliant with his appointments. 8. Iron deficiency anemia. Will recheck patient's ferritin, iron and transferrin percentage. Continue to monitor. 9. History of diastolic heart failure without any echocardiogram on hospital record. BNP was elevated at 1164. However, we do not have patient's baseline. In addition, there was no JVD or lower extremity swelling. Will monitor at this point. Will start patient on Lasix if there are any signs of fluid overload. 10. Coronary artery disease, status post CABG times three. Continue home medications with beta madelaine, lisinopril. Continue to monitor patient. 11. Type 2 diabetes. Continue ISS. 12. History of gastroesophageal reflux disease (GERD). Continue home proton pump inhibitor (PPI). 13. History of seizure. Continue Keppra and Depakote. 14. History of migraine. 15. History of restless leg syndrome. Continue Requip. 16. History of hypertension. Continue lisinopril, isosorbide mononitrate and also metoprolol tartrate with hold parameters. 17. History of obstructive sleep apnea. Continue JESSIE protocol as well as CPAP. 18. Hyperlipidemia. Continue home statin. 19. Tobacco dependence. Patient refused nicotine patch. 20. History of elevated ammonia level. Due to patient is currently at baseline , will not check ammonia level. 21. History of colitis. 22. History of prostate cancer as well as bladder tumor. No issues at the moment. Continue to monitor. 23. Deep vein thrombosis (DVT) prophylaxis with heparin 5000 units subcutaneously every 8 hours. 24. Fluids, electrolytes and nutrition. At this point, the patient appears to be euvolemic. Will start patient on small doses of normal saline if needed due to elevated BNP with unclear baseline. Otherwise, electrolytes are at goal. The patient has been started on carbohydrate consistent diet with 2 grams of sodium and COPD diet. DISPOSITION: The patient seems to have acute on chronic hypoxic respiratory failure, possibly from community acquired pneumonia as well as COPD exacerbation. Will continue IV antibiotic as well as IV steroid. Continue to monitor patient closely. Followup with cultures. My preceptor for this patient encounter was Dr. Love. The preceptor was physically present in the building during the encounter and was fully available. As needed, all aspects of the patient interview, examination, medical decision making process, and medical care plan development were reviewed and approved by the preceptor. The preceptor is aware and concurs with the plan as stated in the body of this note and will attest to such by his/her cosignature. Attending Note: I have independently examined this patient and all aspects of the exam and treatment decisions have been discussed with the resident. A member of the hospitalist staff will continue to follow this patient through discharge. NIRMAL
[2017-08-08] MEDS: DIVALPROEX 500MG *ER* TAB PO SCH ×2 (08:07→21:45)
[2017-08-08] MEDS: HumaLOG INSULIN (NovoLOG) PER UNIT SC SCH ×4 (08:07→21:00)
[2017-08-08] MEDS: DULoxetine 20 MG CAP (CYMBALTA) PO SCH ×2 (08:07→21:45)
--- NOTE | 2017-08-08 10:41 | IPNPDOC ---
Subjective Date Seen The patient was seen on 08/08/17. Subjective Chief Complaint/HPI The patient is a 82-year-old male admitted with a reason for visit of Cap ( Community Acquired Pneumonia). Events since last encounter Family at bedside. noting fatigue. States patient has sundown type behaviors at night. Family will come in and sit with patient overnight while in hospital. Has Bipap at home, bringing in. Noting fatigue from overnight admission and testing. Patient states feeling much better, asking to home. Constitutional: Denies: Chills, Fever, Night Sweats Pulmonary: Reports: Dyspnea, Cough Cardiovascular: Denies: Chest Pain, Palpitations, Orthopnea, Paroxysmal Noc. Dyspnea, Lt Headedness Gastrointestinal: Denies: Nausea, Vomiting, Abdominal Pain, Diarrhea, Constipation Genitourinary: Denies: Dysuria, Frequency, Incontinence, Retention Psych: Reports: Mood Normal, Denies: Depression, Memory Issues Objective Physical Examination General Exam: Positive: Alert, No Acute Distress ENT Exam: Positive: Atraumatic, Mucous membr. moist/pink, Pharynx Normal Neck Exam: Negative: Supple, JVD, thyromegaly, +2 carotid pulse wo bruit, Lymphadenopathy, Other Chest Exam: Positive: Wheezing, Diminished Heart Exam: Positive: Rate Normal, Regular Rhythm, Normal S1, Normal S2, Negative: Murmurs, Rubs Abdomen Exam: Positive: Normal bowel sounds, Soft, Negative: Tenderness, Hepatospenomegaly Extremity Exam: Positive: Normal pulses, Negative: Clubbing, Cyanosis, Edema Skin Exam: Positive: Nl turgor and temperature, Negative: Rash, Breakdown Psych Exam: Positive: Mental status NL, Mood NL, Oriented x 3 Assessment /Plan Problems (1) CAP (community acquired pneumonia) Status: Acute Problem Text: Presumed CAP with symptoms, elevated WBC and lactic acidosis. Repeat CXR today. On Azithromycin and Ceftriaxone. (2) COPD exacerbation Status: Acute Response to Treatment: Improving Problem Text: IV solumedrol 60 mg q 8 hrs. Duonebs and albuterol prn ordered. Keep oxygen saturation between 88-92% (3) Hepatomegaly Status: Chronic Problem Text: Noted hx of hepatomegaly in outpatient records and on CT scan from 02/2017. Ammonia level ordered. Noted elevated ammonia level in outpatient Neurology notes. (4) CAD (coronary artery disease) Status: Chronic Problem Specific Plan: Monitor Clinically Problem Text: EF 54%. (5) Dementia Status: Chronic Problem Text: Has sun-down behaviors. Family plans to remain at bedside overnight. Nursing staff notified (6) JESSIE treated with BiPAP Status: Chronic Response to Treatment: Stable Problem Text: to bring in bipap from home. (7) Diabetes Status: Chronic Response to Treatment: Stable Problem Text: Last hgba1c 7.1 03/2017. On insulin sliding scale for glycemic control. (8) Lactic acidosis Problem Text: repeat Lactic acid. consider IV hydration if remains elevated. Plan/VTE VTE Prophylaxis Ordered?: Yes (Heparin 5000 q 8 hrs) Plan Family Medicine Attending Note: I saw and examined Mr. Dodson this morning; I discussed his care with VELVET Colunga and I agree with her note as documented. Repeat lactic acid was increased; he was given a 500 ml NS bolus and will be hydrated with NS at 125 ml/hr with repeat LA pending for 4:30 pm today. (KES) VS, I&O, 24H, Fishbone Vital Signs/I&O Vital Signs Date Time Temp Pulse Resp B/P (MAP) Pulse Ox O2 Delivery O2 Flow Rate FiO2 08/08/17 06:00 98.0 76 18 154/62 (92) 93 Nasal Cannula 3.0 I&O- Last 24 Hours up to 6 AM 08/09/17 06:00 Output Total 150 ml Balance -150 ml Laboratory Data 24H LABS Laboratory Tests 2 08/07/17 17:29: Immature Granulocyte % (Auto) 0.8H, White Blood Count 15.7H, Red Blood Count 4.55, Hemoglobin 11.3L, Hematocrit 37.0L, Mean Corpuscular Volume 81.3, Mean Corpuscular Hemoglobin 24.8L, Mean Corpuscular Hemoglobin Concent 30.5L, Red Cell Distribution Width 17.8H, Platelet Count 273, Neutrophils (%) (Auto) 87.6H , Lymphocytes (%) (Auto) 9.0L, Monocytes (%) (Auto) 2.4, Eosinophils (%) (Auto) 0.0, Basophils (%) (Auto) 0.2, Neutrophils # (Auto) 13.8H, Lymphocytes # (Auto) 1.4L, Monocytes # (Auto) 0.4, Eosinophils # (Auto) 0.0, Basophils # (Auto) 0.0, Immature Granulocyte # (Auto) 0.1H, Nucleated Red Blood Cells % (auto) 0.0, Anion Gap 9, Glomerular Filtration Rate > 60.0, Lactic Acid Level 2.8*H, Blood Urea Nitrogen 23H, Creatinine 1.00, Sodium Level 138, Potassium Level 4.1, Chloride Level 100, Carbon Dioxide Level 29, Calcium Level 9.5, Total Creatine Kinase 52, Magnesium Level 1.9, Aspartate Amino Transf (AST/SGOT) 7L, Alanine Aminotransferase (ALT/SGPT) 18, Alkaline Phosphatase 50, Total Bilirubin 0.3, Direct Bilirubin < 0.1, Creatine Kinase MB 2.0, Creatine Kinase MB Relative Index 3.84, Troponin I < 0.02, QQ-Vie-Y-Type Natriuretic Peptide 1164H, Total Protein 7.9, Albumin 3.6, Albumin/Globulin Ratio 0.84L 08/07/17 17:35: Blood Gas Bicarbonate Standard 27.9H, Arterial Blood pH 7.459H, Arterial Blood Partial Pressure CO2 40.5, Arterial Blood Partial Pressure O2 67.7L, Arterial Blood Total CO2 29.3, Arterial Blood HCO3 28.1H, Arterial Blood Base Excess 4.0H , Arterial Blood Oxygen Saturation 92.9L 08/07/17 22:56: Total Creatine Kinase 40, Creatine Kinase MB 1.5, Creatine Kinase MB Relative Index 3.75, Troponin I < 0.02, Lactic Acid Followup at 4 Hours 3.1*H 08/08/17 00:02: Urine Appearance CLEAR, Urine Color YELLOW, Urine pH 6.0, Urine Specific [place] 1.018, Urine Protein 1+H, Urine Glucose (UA) NEGATIVE, Urine Ketones TRACEH, Urine Urobilinogen 0.2, Urine Bilirubin NEGATIVE, Urine Leukocyte Esterase 1+H, Urine Blood NEGATIVE, Urine Nitrite NEGATIVE, Urine WBC (Auto) 24H , Urine RBC (Auto) 3, Urine Hyaline Casts (Auto) 0, Urine Bacteria (Auto) NEGATIVE, Urine Squamous Epithelial Cells 0, Urine Sperm (Auto) 08/08/17 05:22: Immature Granulocyte % (Auto) 1.1H, White Blood Count 17.0H, Red Blood Count 4.49, Hemoglobin 11.3L, Hematocrit 36.5L, Mean Corpuscular Volume 81.3, Mean Corpuscular Hemoglobin 25.2L, Mean Corpuscular Hemoglobin Concent 31.0L, Red Cell Distribution Width 17.7H, Platelet Count 258, Neutrophils (%) (Auto) 84.8H , Lymphocytes (%) (Auto) 10.7L, Monocytes (%) (Auto) 3.2, Eosinophils (%) (Auto ) 0.0, Basophils (%) (Auto) 0.2, Neutrophils # (Auto) 14.4H, Lymphocytes # (Auto ) 1.8, Monocytes # (Auto) 0.6, Eosinophils # (Auto) 0.0, Basophils # (Auto) 0.0 , Immature Granulocyte # (Auto) 0.2H, Nucleated Red Blood Cells % (auto) 0.0, Anion Gap 8, Glomerular Filtration Rate > 60.0, Blood Urea Nitrogen 21H, Creatinine 0.93, Sodium Level 139, Potassium Level 4.1, Chloride Level 102, Carbon Dioxide Level 29, Calcium Level 9.2, Total Creatine Kinase 43, Iron Level 23L, Ferritin 7L, Creatine Kinase MB 1.6, Creatine Kinase MB Relative Index 3.72, Troponin I < 0.02 CBC/BMP Laboratory Tests 08/07/17 17:29 Red Blood Count 4.55, Mean Corpuscular Volume 81.3, Mean Corpuscular Hemoglobin 24.8 L, Mean Corpuscular Hemoglobin Concent 30.5 L, Red Cell Distribution Width 17.8 H, Neutrophils (%) (Auto) 87.6 H, Lymphocytes (%) (Auto) 9.0 L, Monocytes ( %) (Auto) 2.4, Eosinophils (%) (Auto) 0.0, Basophils (%) (Auto) 0.2, Neutrophils # (Auto) 13.8 H, Lymphocytes # (Auto) 1.4 L, Monocytes # (Auto) 0.4 , Eosinophils # (Auto) 0.0, Basophils # (Auto) 0.0, Calcium Level 9.5, Total Creatine Kinase 52 08/08/17 05:22 Red Blood Count 4.49, Mean Corpuscular Volume 81.3, Mean Corpuscular Hemoglobin 25.2 L, Mean Corpuscular Hemoglobin Concent 31.0 L, Red Cell Distribution Width 17.7 H, Neutrophils (%) (Auto) 84.8 H, Lymphocytes (%) (Auto) 10.7 L, Monocytes (%) (Auto) 3.2, Eosinophils (%) (Auto) 0.0, Basophils (%) (Auto) 0.2, Neutrophils # (Auto) 14.4 H, Lymphocytes # (Auto) 1.8, Monocytes # (Auto) 0.6, Eosinophils # (Auto) 0.0, Basophils # (Auto) 0.0, Calcium Level 9.2, Total Creatine Kinase 43 Microbiology Microbiology 08/07/17 Blood Culture, Received Pending 08/07/17 Blood Culture, Received Pending Trish Kyle Aug 08, 2017 10:40 KARLIE FAIRCHILD MD Aug 08, 2017 14:47
[2017-08-08] MEDS ORDERED: NS 1,000 ML IV SCH (12:30)
[2017-08-08] MEDS ORDERED: NS 500 ML IV ONE (12:30)
[2017-08-08] MEDS: PANTOPRAZOLE 40MG TAB (PROTONIX) PO SCH (12:49)
[2017-08-08] MEDS: levETIRAcetam 250MG TABLET (KEPPRA) PO SCH (12:49)
[2017-08-08] MEDS: LEVOTHYROXINE 25MCG TABLET (0.025MG) PO SCH (12:49)
[2017-08-08] MEDS: TAMSULOSIN 0.4 MG CAP PO SCH (12:50)
[2017-08-08] MEDS: METOPROLOL TART 25 MG TABLET PO SCH (12:52)
[2017-08-08] MEDS: FUROSEMIDE 20 MG TAB PO SCH (12:52)
[2017-08-08] MEDS: ISOSORBIDE MON. (IMDUR) 30 MG XR TAB PO SCH (12:52)
[2017-08-08] MEDS: LISINOPRIL 5 MG TAB PO SCH (12:52)
--- NOTE | 2017-08-08 14:50 | REP ---
Chest x-ray: Two views. History: COPD. Shortness of breath. Elevated white blood cell count. Comparison study: August 07, 2017. Findings: The lungs are symmetrically aerated and free of infiltrate. Heart is not enlarged. Pulmonary vasculature is not increased. No significant bony abnormality is seen. The patient is status post prior median sternotomy. Impression: No acute disease. No infiltrate seen. Signed by Jevon Carranza MD 08/08/2017 03:18 P
[2017-08-08 16:30] VITALS: BP 160/56
[2017-08-08] MEDS: rOPINIRole 1MG TAB PO SCH (17:50)
[2017-08-08] MEDS ORDERED: cefTRIAXone SOD 1 GM in D5W 50 ML IV SCH (21:00)
[2017-08-08] MEDS ORDERED: QUEtiapine FUMARATE 12.5 MG HALF-TAB PO SCH (21:00)
[2017-08-08 22:00] VITALS: BP 183/76
[2017-08-08] MEDS ORDERED: AZITHROMYCIN INJ 500 MG, VIAL MATE ADAPTER 1 EACH in D5W 250 ML IV SCH (23:00)
[2017-08-09] MEDS: IPRATROPIUM 0.5MG/ALBUTEROL 2.5MG INH SOL UD 3ML (DUONEB)(J7620) NEB SCH ×3 (00:55→13:26)
[2017-08-09 06:00] VITALS: BP 163/86
[2017-08-09] MEDS: methylPREDNISolone INJ 125 MG/2 ML VIAL (J2930) IV SCH (06:25)
[2017-08-09] MEDS: HEPARIN SOD (PORCINE) 5000 UNITS/ML VIAL SC SCH (06:25)
[2017-08-09 07:02] LABS: BASO % 0.2 % (0.0-1.0); LYMPH # 1.8 10^3/uL (1.5-4.5); LYMPH % 9.9 % (24.0-44.0); MEAN CORPUSCULAR HEMOGLOBIN 24.8 pg (27.0-33.0); MEAN CORPUSCULAR HGB CONC 30.4 g/dl (32.0-36.5); MEAN CORPUSCULAR VOLUME 81.8 fl (80.0-96.0); MONO # 0.9 10^3/uL (0.0-0.8); MONO % 4.7 % (0.0-5.0); NEUTROPHILS # 15.3 10^3/uL (1.8-7.7); NEUTROPHILS % 83.2 % (36.0-66.0); PLATELET COUNT, AUTOMATED 293 10^3/uL (150-450); RED CELL DISTRIBUTION WIDTH 17.6 % (11.5-14.5); WHITE BLOOD COUNT 18.4 10^3/uL (4.0-10.0)
[2017-08-09 07:18] LABS: ANION GAP 8 MEQ/L (8-16); BLOOD UREA NITROGEN 22 MG/DL (7-18); CARBON DIOXIDE LEVEL 29 MEQ/L (21-32); CHLORIDE LEVEL 102 MEQ/L (98-107); CREATININE FOR GFR 0.92 MG/DL (0.70-1.30); GLOMERULAR FILTRATION RATE > 60.0 (>35); GLUCOSE, FASTING 203 MG/DL (83-110); POTASSIUM SERUM 4.2 MEQ/L (3.5-5.1); SODIUM LEVEL 139 MEQ/L (136-145)
[2017-08-09] MEDS: DULoxetine 20 MG CAP (CYMBALTA) PO SCH (08:36)
[2017-08-09] MEDS: DIVALPROEX 500MG *ER* TAB PO SCH (08:36)
[2017-08-09] MEDS: HumaLOG INSULIN (NovoLOG) PER UNIT SC SCH ×2 (08:37→13:24)
[2017-08-09] MEDS ORDERED: INFLUENZA VIRUS VACCINE HIGH DOSE 0.5 ML SYRINGE (90662) IM ONE (09:00)
[2017-08-09] MEDS ORDERED: AZIT-12 PO (09:59)
[2017-08-09] MEDS ORDERED: CEFD1CAP8 PO (09:59)
[2017-08-09] MEDS: TAMSULOSIN 0.4 MG CAP PO SCH (13:25)
[2017-08-09] MEDS: PANTOPRAZOLE 40MG TAB (PROTONIX) PO SCH (13:25)
[2017-08-09] MEDS: LEVOTHYROXINE 25MCG TABLET (0.025MG) PO SCH (13:25)
[2017-08-09] MEDS: levETIRAcetam 250MG TABLET (KEPPRA) PO SCH (13:25)
[2017-08-09] MEDS: FUROSEMIDE 20 MG TAB PO SCH (13:25)
[2017-08-09 13:35] VITALS: BP 149/70
[2017-08-09] MEDS: METOPROLOL TART 25 MG TABLET PO SCH (13:35)
[2017-08-09] MEDS: ISOSORBIDE MON. (IMDUR) 30 MG XR TAB PO SCH (13:36)
[2017-08-09] MEDS: LISINOPRIL 5 MG TAB PO SCH (13:36)
--- NOTE | 2017-08-10 13:25 | DSES ---
DATE OF ADMISSION: 08/07/2017 DATE OF DISCHARGE: 08/09/2017 HISTORY OF PRESENT ILLNESS: 82-year-old male presented to [facility] emergency room for worsening shortness of breath. He had been seen in the emergency department (ED) 3 days prior and had failed outpatient treatments with doxycycline and prednisone. Patient was subsequently admitted to family medicine service for presumed community-acquired pneumonia. However, he did have a negative chest x-ray times two for pneumonia. Patient was treated with DuoNebs, intravenous (IV) Solu-Medrol, IV Zithromax and IV ceftriaxone. He continued to improve throughout his hospitalization, was not in need of any oxygen during the daytime hours and utilized his continuous positive airway pressure (CPAP) in the evening hours with excellent relief of his symptoms. On physical exam today, patient's states he is back to baseline and is anxious to take him home. Patient does have oxygen at home. He usually uses 2 liters nasal cannula throughout the day, however, has not needed that while inpatient, has maintained oxygen saturations in 92-95% range on room air. Patient had repeated elevated lactic acid levels, however, did not show any signs of lactic acidosis or sepsis. He did receive some IV hydration, however, he started to have elevated blood pressure and signs of fluid volume overload. The IV fluids were stopped and patient subsequently improved. On physical exam today, pressure 150/80, oxygen saturation 95% on room air, heart rate 97, respiratory rate 15, temperature 98.1. HEENT: Neck is supple without lymphadenopathy or jugular venous distention (JVD). Cardiovascular: Heart rate and rhythm regular. Pulmonary: Lungs are diminished bibasilar, otherwise clear. Abdomen is soft and nontender with positive bowel sounds times all four quadrants. Bilateral lower extremities are without edema. Neurologic: Patient is alert and oriented times three, however, his responses are fairly vague. This is may be secondary to the patient's significant hearing difficulty. IMAGING: Includes chest x-ray times two on 08/07/2017 and 08/08/2017 with no acute disease appreciated. CONSULTATIONS: None. PROCEDURES: None. DISCHARGE DIAGNOSES: 1. Chronic obstructive pulmonary disease exacerbation with presumed community-acquired pneumonia secondary to leukocytosis and elevated lactic acid level. 2. Chronic obstructive pulmonary disease exacerbation. SECONDARY DIAGNOSES: 1. CAD. 2. Hypertension. 3. History of diastolic congestive heart failure with a stable ejection fraction of 65%. 4. Hyperlipidemia. 5. Migraine. 6. Seizure disorder. 7. Type 2 diabetes. 8. Prior history of elevated ammonia level. 9. History of prostate cancer. 10. History of vertigo. 11. Degenerative disc disease. 12. Obstructive sleep apnea. 13. Hepatomegaly with fatty liver disease. 14. Significant peripheral artery disease. 15. Spinal stenosis. 16. Bilateral neuropathy of the leg. 17. Dementia. PLAN: Patient will be discharged to home. Diet is a carbohydrate consistent, 2 gram sodium diet. Activity is as tolerated. He will followup with primary care physician within the next 5-7 days. Medications are as follows: - azithromycin 250 mg by mouth daily for 4 days - cefdinir 300 mg by mouth daily for 7 days - albuterol sulfate via nebulizer four times a day - Depakote ER 500 mg by mouth twice a day - duloxetine 20 mg by mouth twice a day - furosemide 20 mg daily - isosorbide mononitrate 30 mg daily - Keppra 1000 mg daily - levothyroxine sodium 25 mcg daily - lidocaine 5% ointment apply topically four times a day as needed, pain - lisinopril 5 mg by mouth nightly - metformin 1000 mg by mouth twice a day - metoprolol tartrate 25 mg by mouth daily - pantoprazole sodium 40 mg by mouth daily - prednisone 20 mg by mouth three times a day for the next 4 days - PreserVision one capsule by mouth twice a day - Seroquel 25 mg tablets half a tablet by mouth nightly - Restasis one drop both eyes twice a day - ropinirole 2 mg by mouth every evening - tamsulosin 0.4 mg by mouth daily Patient is discharged home with oxygen only through his BiPAP apparatus in the evening hours. He does not use oxygen during the day. will monitor any significant dyspnea and followup with primary care physician on potential needs for oxygen during the day. However, at this time, it is not felt he needs it. Exertional oxygen saturation was 90% and above during the hospitalization. Patient is discharged in stable and satisfactory condition. No further questions at time of discharge.
== END 2017-08-09 14:25 | disposition home or self-care (01) | DRG 190 ==
LOC: EDBD 13:44 → M ED 13:44 → M ED INP 20:32 → M MS4PR 21:45 → M MS5PR 08-08 01:20 → OBSVTOIN 08-08 12:06 → M MS5PR 08-08 14:49
PROVIDERS: ADMIT Hospitalist; ATTEND Family Medicine
DX: J44.1 Chronic obstructive pulmonary disease with (acute) exacerbation (principal); J18.9 Pneumonia, unspecified organism; E87.4 Mixed disorder of acid-base balance; I50.32 Chronic diastolic (congestive) heart failure; E11.51 Type 2 diabetes mellitus with diabetic peripheral angiopathy without gangrene; G43.909 Migraine, unspecified, not intractable, without status migrainosus; I11.0 Hypertensive heart disease with heart failure; F17.200 Nicotine dependence, unspecified, uncomplicated; G40.909 Epilepsy, unspecified, not intractable, without status epilepticus; E11.42 Type 2 diabetes mellitus with diabetic polyneuropathy; F03.90 Unspecified dementia, unspecified severity, without behavioral disturbance, psychotic disturbance, mood disturbance, and anxiety; G25.81 Restless legs syndrome; I25.10 Atherosclerotic heart disease of native coronary artery without angina pectoris; E78.5 Hyperlipidemia, unspecified; E03.9 Hypothyroidism, unspecified; K21.9 Gastro-esophageal reflux disease without esophagitis; Z88.1 Allergy status to other antibiotic agents; Z88.8 Allergy status to other drugs, medicaments and biological substances; Z91.02 Food additives allergy status; Z79.52 Long term (current) use of systemic steroids; Z79.84 Long term (current) use of oral hypoglycemic drugs; Z85.46 Personal history of malignant neoplasm of prostate; Z99.81 Dependence on supplemental oxygen; Z92.3 Personal history of irradiation; Z95.1 Presence of aortocoronary bypass graft; Z85.828 Personal history of other malignant neoplasm of skin; G47.33 Obstructive sleep apnea (adult) (pediatric); Z91.19 Patient's noncompliance with other medical treatment and regimen; Z99.89 Dependence on other enabling machines and devices

== ENCOUNTER → 2017-08-28 | Outpatient (REF) | payer MEDICARE, OTHER ==
[~2017-08-28] MED LIST changes: +AZIT-12 PO; +CEFD1CAP8 PO; +DOXY100T PO; +KEPP10002 PO; +LIDO5OIN28 TOP; +PRESCAP6 PO
== END ==
LOC: M SMT 17:06
PROVIDERS: ATTEND Urology
DX: R39.9 Unspecified symptoms and signs involving the genitourinary system (principal)
CPT/HCPCS: 51798; 81001; 87086; G0463

== ENCOUNTER → 2017-09-03 | Outpatient (CLI) | payer MEDICARE, OTHER ==
--- NOTE | 2017-09-03 15:08 | REP ---
Clinical: Pulmonary nodule. Findings: Moderate COPD/emphysematous changes are appreciated along with scattered scarring. No acute consolidation, significant nodule or mass lesion is identified. No pleural effusion or pneumothorax. Mediastinum demonstrates atherosclerotic changes to the thoracic aorta and coronary arteries without aortic aneurysm or cardiomegaly and no pericardial effusion. No significant axillary, hilar, or mediastinal adenopathy identified. Musculoskeletal structures demonstrate degenerative changes without focal osseous abnormality. Limited upper abdomen demonstrates cholelithiasis and normal bilateral adrenal glands. Impression: Chronic-appearing changes as described above. No acute consolidation, significant nodule or mass lesion identified. Signed by Ramirez Koenig MD 09/03/2017 02:59 P
== END ==
LOC: M RAD 13:58
PROVIDERS: ATTEND Physician Assistant
DX: R91.1 Solitary pulmonary nodule (principal)

== ENCOUNTER → 2017-10-16 | Outpatient (REF) | payer MEDICARE, OTHER ==
[2017-10-16 19:13] LABS: HEMATOCRIT 41.9 % (42.0-52.0); HEMOGLOBIN 12.5 g/dl (14.0-18.0); MEAN CORPUSCULAR HEMOGLOBIN 24.2 pg (27.0-33.0); MEAN CORPUSCULAR HGB CONC 29.8 g/dl (32.0-36.5); PLATELET COUNT, AUTOMATED 272 10^3/uL (150-450); RED BLOOD COUNT 5.17 10^6/uL (4.30-6.10); RED CELL DISTRIBUTION WIDTH 17.9 % (11.5-14.5); RETIC HEMOGLOBIN EQUIVALENT 25.9 pg (24-36); RETICULOCYTE # 80.1 10^9/L (17-77); RETICULOCYTE % 1.6 % (0.5-1.5); WHITE BLOOD COUNT 12.7 10^3/uL (4.0-10.0)
[2017-10-16 19:56] LABS: ESTIMATED AVERAGE GLUCOSE 163 MG/DL (60-110); HEMOGLOBIN A1c 7.3 %
[2017-10-16 20:01] LABS: VITAMIN B12 LEVEL 510 PG/ML (247-911)
[2017-10-16 20:14] LABS: ALBUMIN 3.8 GM/DL (3.2-5.2); ALKALINE PHOSPHATASE 57 U/L (45-117); ALT/SGPT 25 U/L (12-78); ANION GAP 6 MEQ/L (8-16); AST/SGOT 18 U/L (7-37); BILIRUBIN,TOTAL 0.2 MG/DL (0.2-1.0); BLOOD UREA NITROGEN 16 MG/DL (7-18); CALCIUM LEVEL 9.6 MG/DL (8.8-10.2); CARBON DIOXIDE LEVEL 34 MEQ/L (21-32); CHLORIDE LEVEL 101 MEQ/L (98-107); CHOLESTEROL LEVEL 204 MG/DL (<200); CHOLESTEROL RISK RATIO 6.181 (<5); CREATININE FOR GFR 0.96 MG/DL (0.70-1.30); FERRITIN 7 NG/ML (26-388); FREE T4 0.91 NG/DL (0.76-1.46); GLOMERULAR FILTRATION RATE > 60.0 (>35); GLUCOSE, FASTING 109 MG/DL (83-110); HDL CHOLESTEROL 33 MG/DL (>40); IRON (FE) 23 UG/DL (65-175); NON-HDL-C 171 MG/DL; PERCENT SATURATION 5.8 % (19.7-50.0); POTASSIUM SERUM 4.9 MEQ/L (3.5-5.1); SODIUM LEVEL 141 MEQ/L (136-145); TOTAL IRON BINDING CAPACITY 397 UG/DL (250-450); TRIGLYCERIDES LEVEL 656 MG/DL (<150)
== END ==
LOC: M SFHCADAM 14:27
DX: D50.9 Iron deficiency anemia, unspecified (principal); E11.40 Type 2 diabetes mellitus with diabetic neuropathy, unspecified; E03.9 Hypothyroidism, unspecified
CPT/HCPCS: 83550

== ENCOUNTER 2017-10-20 12:24 | Emergency (ER) | payer MEDICARE, OTHER ==
[2017-10-20] MEDS: predniSONE 20 MG TAB PO (13:32)
[2017-10-20 13:37] LABS: ALBUMIN 3.6 GM/DL (3.2-5.2); ALBUMIN/GLOBULIN RATIO 0.82 (1.00-1.93); ALKALINE PHOSPHATASE 56 U/L (45-117); ALT/SGPT 18 U/L (12-78); ANION GAP 8 MEQ/L (8-16); AST/SGOT 12 U/L (7-37); BILIRUBIN,DIRECT < 0.1 MG/DL (0.0-0.2); BILIRUBIN,TOTAL 0.2 MG/DL (0.2-1.0); BLOOD UREA NITROGEN 20 MG/DL (7-18); CALCIUM LEVEL 8.8 MG/DL (8.8-10.2); CARBON DIOXIDE LEVEL 29 MEQ/L (21-32); CHLORIDE LEVEL 102 MEQ/L (98-107); CPK CREATINE PHOSPHOKINASE 62 U/L (39-308); CREATININE FOR GFR 0.98 MG/DL (0.70-1.30); GLOMERULAR FILTRATION RATE > 60.0 (>35); GLUCOSE, FASTING 172 MG/DL (83-110); POTASSIUM SERUM 4.2 MEQ/L (3.5-5.1); SODIUM LEVEL 139 MEQ/L (136-145); TROPONIN I < 0.02 NG/ML (< 0.10)
[2017-10-20 13:42] LABS: MB/CK RELATIVE INDEX 3.22 (< OR =4)
[2017-10-20 13:52] LABS: BASO # 0.1 10^3/uL (0.0-0.2); BASO % 0.6 % (0.0-1.0); EOS # 0.1 10^3/uL (0.0-0.50); EOS % 0.9 % (0.0-3.0); HEMATOCRIT 39.9 % (42.0-52.0); HEMOGLOBIN 12.1 g/dl (14.0-18.0); IMMATURE GRANULOCYTE # 0.1 10^3/uL (0-0); LYMPH # 2.2 10^3/uL (1.5-4.5); LYMPH % 21.4 % (24.0-44.0); MEAN CORPUSCULAR HEMOGLOBIN 24.2 pg (27.0-33.0); MEAN CORPUSCULAR HGB CONC 30.3 g/dl (32.0-36.5); MEAN CORPUSCULAR VOLUME 79.8 fl (80.0-96.0); MONO # 0.9 10^3/uL (0.0-0.8); MONO % 9.1 % (0.0-5.0); PLATELET COUNT, AUTOMATED 240 10^3/uL (150-450); RED CELL DISTRIBUTION WIDTH 18.3 % (11.5-14.5); WHITE BLOOD COUNT 10.4 10^3/uL (4.0-10.0)
[2017-10-20] MEDS: IPRATROPIUM 0.5MG/ALBUTEROL 2.5MG INH SOL UD 3ML (DUONEB)(J7620) NEB ×2 (13:58→14:05)
== END 2017-10-20 15:21 | disposition home or self-care (01) ==
LOC: M ED 12:24
DX: J44.1 Chronic obstructive pulmonary disease with (acute) exacerbation (principal); E11.9 Type 2 diabetes mellitus without complications; I11.0 Hypertensive heart disease with heart failure; I50.9 Heart failure, unspecified; E78.5 Hyperlipidemia, unspecified; E03.9 Hypothyroidism, unspecified; N40.0 Benign prostatic hyperplasia without lower urinary tract symptoms; G47.33 Obstructive sleep apnea (adult) (pediatric); I73.9 Peripheral vascular disease, unspecified; Z79.899 Other long term (current) drug therapy; Z79.84 Long term (current) use of oral hypoglycemic drugs; Z79.890 Hormone replacement therapy; Z88.1 Allergy status to other antibiotic agents; Z88.8 Allergy status to other drugs, medicaments and biological substances; Z91.041 Radiographic dye allergy status; Z91.048 Other nonmedicinal substance allergy status
CPT/HCPCS: 71046

== ENCOUNTER → 2018-01-15 | Outpatient (REF) | payer MEDICARE, OTHER ==
[2018-01-15 19:15] LABS: APPEARANCE, URINE CLEAR (CLEAR); BACTERIA, URINE AUTO 1+ (NEGATIVE); BILIRUBIN, URINE AUTO NEGATIVE (NEGATIVE); BLOOD, URINE BLOOD NEGATIVE (NEGATIVE); COLOR, URINE STRAW (YELLOW); GLUCOSE, URINE (UA) AUTO NEGATIVE (NEGATIVE); KETONE, URINE AUTO NEGATIVE (NEGATIVE); LEUKOCYTE ESTERASE, URINE AUTO 1+ (NEGATIVE); NITRITE, URINE AUTO NEGATIVE (NEGATIVE); PROTEIN, URINE AUTO NEGATIVE (NEGATIVE); RBC, URINE AUTO 1 /HPF (0-3); SPECIFIC GRAVITY URINE AUTO 1.011 (1.002-1.035); SQUAMOUS EPITHELIAL CELL UR AU 0 /HPF (0-6); UROBILINOGEN, URINE AUTO 0.2 mg/dL (0.0-2.0); WBC, URINE AUTO 23 /HPF (0-3)
== END ==
LOC: M SMT 17:13
DX: R39.9 Unspecified symptoms and signs involving the genitourinary system (principal)
CPT/HCPCS: 81001

== ENCOUNTER → 2018-01-24 | Outpatient (REF) | payer MEDICARE, OTHER ==
[2018-01-24 21:56] LABS: APPEARANCE, URINE MANUAL CLEAR (CLEAR); COLOR, URINE MANUAL YELLOW (YELLOW)
[2018-01-24 21:57] LABS: GLUCOSE, URINE (UA) MANUAL NEGATIVE (NEGATIVE); PROTEIN, URINE MANUAL TRACE mg/dL (NEGATIVE)
[2018-01-24 21:58] LABS: BILIRUBIN, URINE MANUAL NEGATIVE (NEGATIVE); BLOOD URINE MANUAL TRACE (NEGATIVE); KETONE, URINE MANUAL NEGATIVE (NEGATIVE); LEUKOCYTE ESTERASE, URINE MAN TRACE (NEGATIVE); MICROSCOPIC INDICATED? MAN YES (NO); NITRITE, URINE MANUAL NEGATIVE (NEGATIVE); UROBILINOGEN, URINE MANUAL NORMAL (NORMAL)
[2018-01-24 22:07] LABS: BACTERIA, URINE NONE SEEN; HYALINE CAST, URINE NONE SEEN /lpf (0-1); SQUAMOUS EPITHELIAL CELL URINE SMALL AMOUNT /hpf (SMALL AMT)
[2018-01-24 22:08] LABS: MICROSCOPIC EXAM PERFORMED; YEAST, URINE SMALL AMOUNT
== END ==
LOC: M SFHCADAM 14:20
DX: N41.0 Acute prostatitis (principal)
CPT/HCPCS: 81000

== ENCOUNTER → 2018-02-04 | Outpatient (REF) | payer MEDICARE, OTHER ==
[2018-02-04 16:15] LABS: AMMONIA 47 uMOL/L (<32)
== END ==
LOC: M LAB REF 15:02
DX: R51 Headache (principal); R42 Dizziness and giddiness; Z51.81 Encounter for therapeutic drug level monitoring; Z79.899 Other long term (current) drug therapy
CPT/HCPCS: 82140

== ENCOUNTER → 2018-05-17 | Outpatient (CLI) | payer MEDICARE, OTHER ==
[2018-05-17 13:24] LABS: HEMATOCRIT 42.9 % (42.0-52.0); HEMOGLOBIN 13.6 g/dl (13.5-17.5); MEAN CORPUSCULAR HEMOGLOBIN 29.5 pg (27.0-33.0); MEAN CORPUSCULAR HGB CONC 31.7 g/dl (32.0-36.5); MEAN CORPUSCULAR VOLUME 93.1 fl (80.0-96.0); PLATELET COUNT, AUTOMATED 186 10^3/uL (150-450); RED BLOOD COUNT 4.61 10^6/uL (4.30-6.10); RED CELL DISTRIBUTION WIDTH 15.4 % (11.5-14.5); RETIC HEMOGLOBIN EQUIVALENT 35.1 pg (24-36); RETICULOCYTE # 94.5 10^9/L (17-77); RETICULOCYTE % 2.1 % (0.5-1.5)
[2018-05-17 13:43] LABS: ALBUMIN 3.6 GM/DL (3.2-5.2); ALBUMIN/GLOBULIN RATIO 0.86 (1.00-1.93); ALKALINE PHOSPHATASE 60 U/L (45-117); ALT/SGPT 22 U/L (12-78); ANION GAP 7 MEQ/L (8-16); AST/SGOT 10 U/L (7-37); BILIRUBIN,TOTAL 0.4 MG/DL (0.2-1.0); BLOOD UREA NITROGEN 19 MG/DL (7-18); CALCIUM LEVEL 9.1 MG/DL (8.8-10.2); CARBON DIOXIDE LEVEL 31 MEQ/L (21-32); CHLORIDE LEVEL 105 MEQ/L (98-107); CREATININE FOR GFR 1.03 MG/DL (0.70-1.30); FERRITIN 45 NG/ML (26-388); FREE T4 0.98 NG/DL (0.76-1.46); GLOMERULAR FILTRATION RATE > 60.0 (>35); GLUCOSE, FASTING 177 MG/DL (70-100); IRON (FE) 56 UG/DL (65-175); PERCENT SATURATION 18.8 % (19.7-50.0); POTASSIUM SERUM 4.9 MEQ/L (3.5-5.1); SODIUM LEVEL 143 MEQ/L (136-145); TOTAL IRON BINDING CAPACITY 298 UG/DL (250-450); TOTAL PROTEIN 7.8 GM/DL (6.4-8.2)
[2018-05-17 13:53] LABS: ESTIMATED AVERAGE GLUCOSE 197 MG/DL (60-110); HEMOGLOBIN A1c 8.5 %
== END ==
LOC: M WUC 09:36
DX: D50.8 Other iron deficiency anemias (principal); I11.0 Hypertensive heart disease with heart failure; E03.9 Hypothyroidism, unspecified; E11.40 Type 2 diabetes mellitus with diabetic neuropathy, unspecified
CPT/HCPCS: 83550

== ENCOUNTER → 2018-07-24 | Outpatient (CLI) | payer MEDICARE, OTHER | LOC: M SMT 13:33 | DX: Z12.5 Encounter for screening for malignant neoplasm of prostate (principal) | CPT/HCPCS: 84154 ==

== ENCOUNTER → 2018-09-09 | Outpatient (CLI) | payer MEDICARE, OTHER ==
[2018-09-09 13:46] LABS: HEMATOCRIT 45.5 % (42.0-52.0); HEMOGLOBIN 14.6 g/dl (13.5-17.5); MEAN CORPUSCULAR HEMOGLOBIN 29.1 pg (27.0-33.0); MEAN CORPUSCULAR HGB CONC 32.1 g/dl (32.0-36.5); MEAN CORPUSCULAR VOLUME 90.8 fl (80.0-96.0); PLATELET COUNT, AUTOMATED 182 10^3/uL (150-450); RED BLOOD COUNT 5.01 10^6/uL (4.30-6.10); RED CELL DISTRIBUTION WIDTH 14.6 % (11.5-14.5); WHITE BLOOD COUNT 14.4 10^3/uL (4.0-10.0)
[2018-09-09 14:13] LABS: ANION GAP 10 MEQ/L (8-16); BLOOD UREA NITROGEN 13 MG/DL (7-18); CALCIUM LEVEL 8.9 MG/DL (8.8-10.2); CARBON DIOXIDE LEVEL 29 MEQ/L (21-32); CHLORIDE LEVEL 101 MEQ/L (98-107); CREATININE FOR GFR 0.92 MG/DL (0.70-1.30); FREE T4 0.92 NG/DL (0.76-1.46); GLOMERULAR FILTRATION RATE > 60.0 (>35); GLUCOSE, FASTING 174 MG/DL (70-100); POTASSIUM SERUM 4.3 MEQ/L (3.5-5.1); SODIUM LEVEL 140 MEQ/L (136-145)
[2018-09-09 14:56] LABS: ESTIMATED AVERAGE GLUCOSE 214 MG/DL (60-110); HEMOGLOBIN A1c 9.1 %
== END ==
LOC: M SMT 09:04
DX: K62.7 Radiation proctitis (principal); E03.9 Hypothyroidism, unspecified; E11.40 Type 2 diabetes mellitus with diabetic neuropathy, unspecified
CPT/HCPCS: 84443

== ENCOUNTER → 2018-12-16 | Outpatient (CLI) | payer MEDICARE, OTHER ==
[~2018-12-16] MED LIST changes: +FLOM0.4C39 PO; -FLOM5CAP PO; -GABA-283 PO; +GABA-845 PO; +METR-201 PO; -METR1TAB66 PO; -PANT40TA2 PO; +PANT40TA3 PO; -SALI0.6523; +SALI0.6528; +VESI10TA2 PO
[2018-12-16 10:38] LABS: HEMATOCRIT 42.6 % (42.0-52.0); HEMOGLOBIN 13.1 g/dl (13.5-17.5); MEAN CORPUSCULAR HEMOGLOBIN 28.4 pg (27.0-33.0); MEAN CORPUSCULAR HGB CONC 30.8 g/dl (32.0-36.5); MEAN CORPUSCULAR VOLUME 92.2 fl (80.0-96.0); PLATELET COUNT, AUTOMATED 178 10^3/uL (150-450); RED BLOOD COUNT 4.62 10^6/uL (4.30-6.10); WHITE BLOOD COUNT 11.9 10^3/uL (4.0-10.0)
[2018-12-16 11:00] LABS: ALBUMIN 3.4 GM/DL (3.2-5.2); ALT/SGPT 19 U/L (12-78); BILIRUBIN,TOTAL 0.2 MG/DL (0.2-1.0); BLOOD UREA NITROGEN 16 MG/DL (7-18); CALCIUM LEVEL 8.5 MG/DL (8.8-10.2); CARBON DIOXIDE LEVEL 32 MEQ/L (21-32); CHLORIDE LEVEL 104 MEQ/L (98-107); CHOLESTEROL LEVEL 109 MG/DL (<200); CHOLESTEROL RISK RATIO 3.406 (<5); FREE T4 1.05 NG/DL (0.76-1.46); GLOMERULAR FILTRATION RATE > 60.0 (>35); GLUCOSE, FASTING 133 MG/DL (70-100); HDL CHOLESTEROL 32 MG/DL (>40); LDL CHOLESTEROL 46 MG/DL (<100); NON-HDL-C 77 MG/DL; POTASSIUM SERUM 4.9 MEQ/L (3.5-5.1); SODIUM LEVEL 142 MEQ/L (136-145); TOTAL PROTEIN 7.5 GM/DL (6.4-8.2); TRIGLYCERIDES LEVEL 155 MG/DL (<150)
[2018-12-16 11:03] LABS: HEMOGLOBIN A1c 7.7 %
== END ==
LOC: M WUC 09:08
PROVIDERS: ATTEND Family Medicine
DX: F03.90 Unspecified dementia, unspecified severity, without behavioral disturbance, psychotic disturbance, mood disturbance, and anxiety (principal); D50.9 Iron deficiency anemia, unspecified; I11.0 Hypertensive heart disease with heart failure; E03.9 Hypothyroidism, unspecified; E11.40 Type 2 diabetes mellitus with diabetic neuropathy, unspecified

== ENCOUNTER 2019-01-28 07:44 | Inpatient (IN) | payer MEDICARE, OTHER ==
[~2019-01-28] VITALS: Ht 182.9 cm; Wt 92.0 kg
[2019-01-28] VITALS (11 sets, daily range): BP systolic 108–144; BP diastolic 56–79; O2SAT 99
[~2019-01-28 07:44] MED LIST changes: -/DULO30CA OR; -/PANT40TA OR; -/PRAV20TA PO; -/ROPI5TA PO; -/TAMS4CA OR; +CYMB1CAP5 OR; +FLOM0.4C39 OR; +METO1TAB63 PO; -METO25TAB PO; -METR-201 PO; +METR-265 PO; +NICO21DI3 TD; -NICO21PAT TD; +PRAV1TAB39 PO; +PROT1TAB2 OR; +REQU1TAB15 PO
[2019-01-28] MEDS ORDERED: FUROSEMIDE 40 MG/4 ML VIAL (J1940) IV ONE ×2 (08:00→08:30)
[2019-01-28] MEDS ORDERED: IPRATROPIUM 0.5MG/ALBUTEROL 2.5MG INH SOL UD 3ML (DUONEB)(J7620) NEB ONE (08:00)
[2019-01-28] MEDS ORDERED: FUROSEMIDE 40 MG/4 ML VIAL (J1940) As Ordered ONE (08:01)
[2019-01-28] MEDS ORDERED: hydrALAZINE INJ 20 MG/ML VIAL As Ordered ONE (08:08)
[2019-01-28 08:13] LABS: ABG HCO3 29.2 MEQ/L (22.0-26.0); ABG O2 SATURATION 85.8 % (95.0-99.0); ABG PARTIAL PRESSURE O2 67.5 mmHg (75.0-100.0); ABG STANDARD HCO3 21.7 MEQ/L (22.0-26.0)
[2019-01-28 08:15] LABS: ABG PARTIAL PRESSURE CO2 91.5 mmHg (35.0-45.0); ABG pH (ARTERIAL) 7.122 UNITS (7.350-7.450)
[2019-01-28] MEDS ORDERED: hydrALAZINE INJ 20 MG/ML VIAL IV ONE ×2 (08:15→08:30)
--- NOTE | 2019-01-28 08:15 | REP ---
Portable chest, 81, 01:00 a.m., single AP upright view: Comparison is 10/20/2017. There is diffuse bilateral interstitial coarsening as an interval change, compatible with interstitial infiltrates. There are no pleural effusions. There is cardiomegaly. There are sternotomy wires, unchanged. Impression: Interstitial coarsening, not present previously, compatible with interstitial infiltrates. Cardiomegaly and sternotomy wires. Electronically Signed by Johnny Mcmullen MD 01/28/2019 08:06 A
[2019-01-28 08:25] LABS: BASO # 0.1 10^3/uL (0.0-0.2); BASO % 0.4 % (0.0-1.0); EOS # 0.2 10^3/uL (0.0-0.50); EOS % 0.7 % (0.0-3.0); HEMATOCRIT 45.9 % (42.0-52.0); HEMOGLOBIN 14.2 g/dl (13.5-17.5); LYMPH # 2.7 10^3/uL (1.5-4.5); LYMPH % 12.6 % (24.0-44.0); MEAN CORPUSCULAR HEMOGLOBIN 27.8 pg (27.0-33.0); MEAN CORPUSCULAR HGB CONC 30.9 g/dl (32.0-36.5); MEAN CORPUSCULAR VOLUME 89.8 fl (80.0-96.0); MONO # 1.9 10^3/uL (0.0-0.8); MONO % 8.6 % (0.0-5.0); NEUTROPHILS # 16.7 10^3/uL (1.8-7.7); NEUTROPHILS % 76.8 % (36.0-66.0); PLATELET COUNT, AUTOMATED 212 10^3/uL (150-450); RED BLOOD COUNT 5.11 10^6/uL (4.30-6.10); WHITE BLOOD COUNT 21.7 10^3/uL (4.0-10.0)
[2019-01-28] MEDS ORDERED: NITROGLYCERIN 2% OINT 1 GM *U/D* PKT As Ordered ONE (08:27)
[2019-01-28] MEDS ORDERED: NITROGLYCERIN 2% OINT 1 GM *U/D* PKT TOP ONE (08:30)
[2019-01-28 08:38] LABS: PROTHROMBIN TIME 13.3 SECONDS (12.1-14.4)
[2019-01-28 08:55] LABS: ALBUMIN 3.6 GM/DL (3.2-5.2); ALT/SGPT 16 U/L (12-78); BILIRUBIN,DIRECT 0.2 MG/DL (0.0-0.2); BILIRUBIN,TOTAL 0.5 MG/DL (0.2-1.0); BLOOD UREA NITROGEN 12 MG/DL (7-18); CALCIUM LEVEL 8.7 MG/DL (8.8-10.2); CARBON DIOXIDE LEVEL 30 MEQ/L (21-32); CHLORIDE LEVEL 101 MEQ/L (98-107); CPK CREATINE PHOSPHOKINASE 79 U/L (39-308); GLOMERULAR FILTRATION RATE > 60.0 (>35); GLUCOSE, FASTING 159 MG/DL (70-100); NT-PRO BNP 2220 PG/ML (<450); POTASSIUM SERUM 4.5 MEQ/L (3.5-5.1); SODIUM LEVEL 137 MEQ/L (136-145); TOTAL PROTEIN 8.1 GM/DL (6.4-8.2); TROPONIN I < 0.02 NG/ML (< 0.10); VALPROIC ACID (DEPAKOTE) 20.9 UG/ML (50.0-100.0)
--- NOTE | 2019-01-28 09:53 | REP ---
Bilateral RA CT of the chest without IV contrast: Comparison is 09/03/2017. There are are small bilateral pleural effusions and there is diffuse interstitial coarsening as changes from the comparison study, compatible with CHF. There are scattered bulla in the upper lobes bilaterally, unchanged, compatible with bullous emphysema. There are lung nodules, not present previously. Now a as follows: Image 26, right upper lobe, 13 mm. Image 35, right upper lobe, 14 mm. Image 37, left lower lobe superior segment, 10 mm. Image 62, left lower lobe, 10 mm. The unenhanced thoracic aorta is unremarkable except for calcified atheroma. Cardiac size is upper normal. There is calcified atheroma in the coronary arteries. There is no pericardial effusion. Impression: Small bilateral pleural effusions as an interval change. Interstitial coarsening, compatible with interstitial infiltrates as an interval change. Multiple lung nodules, not present previously. 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 Electronically Signed by Johnny Mcmullen MD 01/28/2019 09:45 A
[2019-01-28] MEDS ORDERED: DYMI137S (10:00)
[2019-01-28] MEDS ORDERED: ATOR40TA75 PO (10:00)
[2019-01-28] MEDS ORDERED: PRES10CA2 PO (10:00)
[2019-01-28] MEDS ORDERED: COMBAER6 INH (10:00)
[2019-01-28] MEDS ORDERED: MYRB50TA PO (10:03)
[2019-01-28] MEDS ORDERED: METO25TA4 PO (10:03)
[2019-01-28] MEDS ORDERED: ROPI1TAB PO ×2 (10:03)
--- NOTE | 2019-01-28 10:06 | REP ---
CT of the abdomen and pelvis without IV or bowel contrast: Comparison is 03/07/2016. There are small bilateral pleural effusions, not present previously. There is a calcification at the tip of the gallbladder as previously. I cannot determine whether this is intraluminal or extraluminal If extraluminal, this could represent degenerative mesenteric calcification which is fat necrosis. F intraluminal this represents cholelithiasis. There is no biliary duct dilatation. The unenhanced hepatic parenchyma is homogeneous and otherwise unremarkable. Pancreas and spleen are normal size and unremarkable. The adrenals are unremarkable. There are no renal calculi. There is no hydronephrosis. The unenhanced kidneys are otherwise unremarkable and unchanged. The abdominal aorta is unremarkable except for calcified atheroma. This is unchanged. There is no periaortic adenopathy or mass. There is no bowel distension or obstruction. There are numerous diverticula in the sigmoid colon. The previous diverticulitis has resolved. There is no CT evidence of diverticulitis on the current study. Pelvis: The patient indicates he has an appendectomy. There is a bladder catheter and the bladder is collapsed around the catheter balloon. There appear to be small calcifications posteriorly in the bladder adjacent to the catheter balloon as an interval change. The patient has a history of prostate carcinoma. There are surgical clips in the prostate bed. This is unchanged. There is a small 8 mm focal lucency in the left iliac wing on image 91. This is unchanged and likely a bone cyst. There are no lytic, blastic or destructive skeletal changes. Impression: Diverticulosis without diverticulitis. No adenopathy, mass or ascites. Bilateral small pleural effusions. Right upper quadrant calcification as described. No hydronephrosis. No lytic, blastic or destructive skeletal changes. Tiny bone cyst in the left iliac wing. Degenerative disc disease and L5/ S1. Electronically Signed by Johnny Mcmullen MD 01/28/2019 09:56 A
[2019-01-28] MEDS ORDERED: JANU100T PO (10:08)
[2019-01-28 10:13] LABS: ABG BASE EXCESS 2.2 (-2.0-2.0); ABG HCO3 28.7 MEQ/L (22.0-26.0); ABG O2 SATURATION 99.3 % (95.0-99.0); ABG PARTIAL PRESSURE O2 240.5 mmHg (75.0-100.0); ABG STANDARD HCO3 26.5 MEQ/L (22.0-26.0); ABG TOTAL CO2 30.3 MEQ/L (23.0-31.0)
[2019-01-28] MEDS ORDERED: LevoFLOXacin IV 750 MG in APPROPRIATE DILUENT 1 EA IV ONE (10:15)
[2019-01-28 10:17] LABS: INFLUENZA A AMPLIFICATION NEGATIVE (NEGATIVE); INFLUENZA B AMPLIFICATION NEGATIVE (NEGATIVE)
[2019-01-28] MEDS ORDERED: ACETAMINOPHEN TAB 650MG DOSE (2X325MG) PO PRN (11:00)
[2019-01-28] MEDS ORDERED: GLUCOSE 4 GM CHEW TABLET PO PRN (11:30)
[2019-01-28] MEDS ORDERED: DEXTROSE 50% 50 ML SYRINGE IV PRN (11:30)
[2019-01-28] MEDS ORDERED: GLUCAGON FOR INJ 1 MG VIAL (J1610) SC PRN (11:30)
--- NOTE | 2019-01-28 11:40 | CCN ---
DATE OF VISIT: 01/28/2019 START TIME: 914 STOP TIME: 1050 I attended Roge Dodson here in the emergency room (ER). The patient has been examined and the chart is reviewed. He is known to me from the outpatient setting. Essentially an 83-year-old gentleman with known underlying obstructive lung disease with obstructive sleep apnea syndrome with noncompliance and continued tobacco abuse. Her was brought to the ER today essentially in respiratory distress. The family reports he has not been feeling well for several days. He said he felt ill enough yesterday that he said his goodbyes to everyone. Today on arrival in the ER, he was tachycardic and markedly hypertensive. He was not able to speak full sentences. He is a DO NOT RESUSCITATE/DO NOT INTUBATE (DNR/DNI). He was placed on noninvasive support. First blood gas done showed a pH of 7.12, pCo2 91 and pO2 of 67. After some time on noninvasive support, pH 7.360, pCo2 of 52 and pO2 of 240.5. Chest x-ray and CT scans show bilateral pleural effusions, cardiomegaly and significant vascular congestion with edema versus infiltrates. ECG does show a new left bundle. Other laboratories show a white blood cell count of 20.7, hemoglobin 14.2, and platelet count 212,000 with 76% segs and 0 bands. Sodium 137, potassium 4.5, chloride 101, CO2 30, BUN 12, creatinine 0.9. Pro-BNP 2220. Coags unremarkable. Valproic acid 20.9. Influenza screens are negative. Home med list is reviewed. On exam, he is conversant, awake and reasonably appropriate. He says he feels better. Heart rate 96. Blood pressure down to the 150s systolic. Respiratory rate about 24, without obvious accessory muscle use. HEENT shows noninvasive mask in place. Dentures are ill fitting. Membranes are moist. Jugular venous distention difficult to assess. Trachea is in the midline. Chest shows diffuse scattered rhonchi with inspiratory and expiratory crackles. No focal wheeze. No rubs. Cardiac exam distant, generally regular. Peripheral pulses diminished, but palpable. Trace edema. Abdomen obese, soft, with active bowel sounds. Extremities without cyanosis or clubbing. Neurologically as outlined above. The most pressing problems requiring my presence at the bedside are: 1. Acute on chronic respiratory failure, both hypoxemic and hypercapnic. 2. Underlying obstructive lung disease. 3. Congestive heart failure. 4. ECG changes. 5. Obstructive sleep apnea with variable compliance. 6. Continued tobacco abuse. 7. DO NOT RESUSCITATE/DO NOT INTUBATE status. A long discussion was had with the family as it was with Dr. Carver. At this point, he is being aggressively diuresed. His blood pressure is under better control as he was 220 systolic on arrival. He has shown improvement in his blood gas and will continue noninvasive support at this point. He is being evaluated in view of his ECG changes. The family confirms to be his DNR status. We will add nebulized bronchodilators. For now, I would hold on steroids. We can consider antimicrobials as he has had some yellowish sputum. At this point, there is a high likelihood for further compromise, especially in view of his multi organ dysfunction. I left the bedside at 1050 hours. A total of 45 minutes of critical care time delivered at the bedside, not including procedures.
[2019-01-28] MEDS: HumaLOG INSULIN (NovoLOG) PER UNIT SC SCH ×3 (12:00→20:32)
[2019-01-28 12:22] LABS: MAGNESIUM LEVEL 1.8 MG/DL (1.8-2.4)
[2019-01-28] MEDS: METOPROLOL TART 25 MG TABLET PO SCH (13:06)
[2019-01-28] MEDS: ISOSORBIDE MON. (IMDUR) 30 MG XR TAB PO SCH (13:06)
[2019-01-28] MEDS: PANTOPRAZOLE 40MG TAB (PROTONIX) PO SCH (13:06)
[2019-01-28] MEDS: LEVOTHYROXINE 25MCG TABLET (0.025MG) PO SCH (13:06)
[2019-01-28] MEDS: levETIRAcetam 250MG TABLET (KEPPRA) PO SCH (13:06)
[2019-01-28] MEDS: ATORVASTATIN 20 MG TAB PO SCH (13:06)
[2019-01-28] MEDS: ENOXAPARIN 40 MG/0.4 ML SYRINGE (J1650) SC SCH (13:07)
[2019-01-28] MEDS: FUROSEMIDE 40 MG/4 ML VIAL (J1940) IV SCH ×4 (13:07→23:52)
[2019-01-28] MEDS: IPRATROPIUM 0.5MG/ALBUTEROL 2.5MG INH SOL UD 3ML (DUONEB)(J7620) NEB SCH ×4 (13:10→23:36)
--- NOTE | 2019-01-28 13:10 | HPE ---
DATE OF ADMISSION: 01/28/2019 REASON FOR ADMISSION/CHIEF COMPLAINT: Dyspnea. HISTORY: Mr. Dodson is an 83-year-old male with history of coronary artery disease, chronic obstructive pulmonary disease (COPD), chronically uses bilateral positive airway pressure (BiPAP) at home. Presents with dyspnea, hypertension, tachycardia, tachypnea. Was on nonrebreather with pulse oximetry dropped to 75% soon after admission on room air, 86% and 75% on room air, 95% on a nonrebreather. Arterial blood gas done in the emergency department (ED) showed evidence of CO2 retention, specifically pCO2 of 91.5, pO2 of 67.5, pH of 7.122. Emergency room (ER) staff, Dr. Mcfadden, placed BiPAP, which in the course of approximately 2 hours improved his pH to 7.360, pCO2 dropped to 52, and pO2 is now 240.5. The patient improved, became less dyspneic, and was a little more comfortable. He reports a history of some dyspnea over the past day or so, had some substernal chest discomfort approximately a day ago. Initial troponin was negative, but he has a new left bundle branch block accompanied by his tachycardia. PAST MEDICAL HISTORY: Is remarkable for coronary artery disease with coronary artery bypass graft three vessels in 2003. Balloon angioplasties of the left circumflex in September of 2016, which was not stented because the patient has a history of rectal bleeding and Plavix or similar would not have been safe for him. His ejection fraction at that time of that study was 65%. He has a history of seizure disorder, and he has been on Keppra and valproic acid, elevated ammonia levels which were attributed to Depakote and Keppra, possibly also secondary to fatty liver disease. No evidence of cirrhosis. Diabetes type 2 since at least 10 years. Not using insulin. Had been on Januvia. History of prostate cancer treated with radiation therapy in 2013. He has had problems with radiation proctitis since then. History of congestive failure with normal ejection fraction. History of obstructive sleep apnea and has been on enalapril 20 mg twice a day and uncertain consistency of use of his continuous positive airway pressure (CPAP) device. The family indicates he has not been using it consistently. MRI of the brain, MRA of tge brain showed occluded left internal carotid artery and a stenotic left CCA, severe cervical spinal stenosis identified on MRI of January 29. He had a history of some dementia and related hallucinations, which at one point was treated with Seroquel. SURGICAL HISTORY: Includes coronary artery bypass graft (CABG). Knee surgery, is not clear exactly what was done in 1971. Carotid endarterectomy by Dr. Adamson in 2001. Appendectomy in 1967. Stent for improving circulation to his lower legs were placed in February of 2013. FAMILY HISTORY: Is remarkable for coronary artery disease in both parents. The patient is still a smoker. He smokes approximately five cigarettes a day. Usually within the first few minutes of awakening, he begins to smoke. Numerous attempts have been made to encourage the patient to discontinue tobacco use. ALLERGIES: RED DYE, METFORMIN causing diarrhea related side effects. Confusion with CIPRO and unspecified reaction to CEFUROXIME and CONTRAST MEDIA. REVIEW OF SYSTEMS: Is of limited value from the patient because of his current mental status, but recently over the past week, day or two, the family who is with him here today reports increasing dyspnea, reported substernal chest discomfort, some abdominal discomfort, although no vomiting, no change in bowel patterns. He has chronic loose stool related to his radiation proctitis. He has had some falls in the past but not recent. No recent head injury or fainting or loss of consciousness and no recent seizure activity has been noted. EXAMINATION: The patient is partially upright on the ER rgreat neck with BiPAP device in place. He is responsive to voice, and device makes it harder for him to hear, but he is able to communicate. He denies discomfort at this time and says his breathing feels somewhat better. HEENT: Mask in place. No oral lesions are identified. No evidence of thrush. There is no neck mass. No tracheal shift. Lungs: Some late expiratory squeaks are noted in the anterior lung morrison. Some late inspiratory rhonchi are heard at the bases bilaterally, somewhat more on the right. Heart: Regular rhythm. Soft 1-2/6 murmur noted at the left sternal border. Tachycardiac, rhythm is regular. Abdomen: No distention. No guarding. No rebound. Bowel sounds are present. He has trace bilateral edema. Pulses were diminished at posterior tibial and dorsalis pedis but was felt to be present. Neurologic: He is he is able to move all extremities. He is awake, answers questions yes and no, though limited because of his ongoing dyspnea. LABORATORY DATA: Today show a white count of 21,700 with a hemoglobin of 14.2, platelet count is normal at 212,000. Sodium, potassium chloride, CO2 were normal. Anion gap is 6, BUN 12, creatinine 0.9, glucose 159, calcium 8.7, with an albumin of 3.6. Liver enzymes were normal, and total CPK 79, troponin less than 0.02, CPK relative index was elevated at 4.3, although total CK-MB was 3.0. Valproic acid was 20.9, which is low. PT/INR normal. Influenza A and B screen negative in the ED. Blood cultures have been drawn. Sputum has not been collected for culture. He has been started on levofloxacin 750 mg intravenous (IV) daily for treatment of presumptive pneumonia. There is evidence of compression atelectasis or infiltrates in the right base. Bilateral pleural effusions are noted, somewhat more on the right than the left. CT pattern is suggestive of acute pulmonary edema. In the ED, he received furosemide, as well as BiPAP treatment with improvement in his respiratory status. Dr. Dionicio Cortez of critical care and pulmonary service, who knows this patient, has been consulted because of the apparent ongoing requirement for BiPAP treatment. Dr. Siddiqui of [facility] has been consulted, since the patient is followed at their office related to the new electrocardiogram (EKG) change. ASSESSMENT: 1. Acute hypercarbic respiratory failure, pattern compatible with acute diastolic on chronic diastolic congestive failure. 2. Chronic obstructive pulmonary disease. 3. Coronary artery disease, new left bundle branch block on EKG, troponin negative so far. 4. Seizure disorder. 5. Type 2 diabetes mellitus, not insulin user. PLAN: Admit to intensive care unit (ICU). Consults as noted. BiPAP ordered. Specific orders to be provided by Dr. Cortez. Continue levofloxacin at current dose. Sliding scale insulin has been ordered. Will resume his usual medications with some exceptions. Resumed are atorvastatin 40, isosorbide mononitrate 30, Keppra 1000 mg daily, levothyroxine 25 mcg daily, metoprolol 25 mg in the morning and 50 at bedtime, pantoprazole 40 mg daily, valproic acid 500 mg twice a day, duloxetine 20 mg twice a day, Requip total of 3 mg daily, lisinopril 5 mg daily, albuterol nebulizers every 4 hours, albuterol ipratropium DuoNebs every 4 hours. Lasix 40 has been ordered every 4 hours for net negatives, and Lovenox has been ordered for deep venous thrombosis (DVT) prophylaxis at 40 mg subcutaneous daily, along with as needed Tylenol for aches and pains. Hypoglycemia protocol medications have been ordered, as well. Not ordered at this time are allergy spray for his nose and Dymista nasal spray, cyclosporin eyedrops for dry eyes. Lasix 20 mg daily has been replaced with the IV dose as specified. Metformin has been held. Myrbetriq has been held since the patient has a Oneill catheter in place. Januvia has been held, and tamsulosin has been held, and multiple vitamin supplement recommended by his medical equipment repair technician has been held. Respiratory therapies will be specified by the critical care operator specialist communications, and consultation with Dr. Siddiqui regarding the EKG changes has been requested. Repeat troponin has been scheduled for noon and again at 4:00 p.m. The prognosis is guarded, considering his multiple chronic problems, severity of presentation, and known underlying coronary disease. He is not currently considered as a good candidate for any sort of thrombolytic therapy because of history of gastrointestinal (GI) bleeding associated with his radiation proctitis and pointedly is not on aspirin or clopidogrel for long-term prophylaxis. Based on recent laboratory results, his low-density lymphocyte (LDL) is optimized at 70 or less with his current statin therapy.
[2019-01-28 13:18] LABS: MB/CK RELATIVE INDEX 4.57 (< OR =4); TROPONIN I 0.04 NG/ML (< 0.10)
[2019-01-28] MEDS: DULoxetine 20 MG CAP (CYMBALTA) PO SCH ×2 (14:07→20:31)
[2019-01-28] MEDS: rOPINIRole 1MG TAB PO SCH ×2 (14:07→20:31)
[2019-01-28] MEDS: DIVALPROEX 500MG *ER* TAB PO SCH ×2 (14:07→20:37)
[2019-01-28 16:37] LABS: MB/CK RELATIVE INDEX 4.79 (< OR =4); TROPONIN I 0.12 NG/ML (< 0.10)
[2019-01-28] MEDS: LISINOPRIL 5 MG TAB PO SCH (20:30)
[2019-01-28] MEDS: METOPROLOL TART 50 MG TAB PO SCH (20:31)
[2019-01-28 22:46] LABS: MB/CK RELATIVE INDEX 3.58 (< OR =4); TROPONIN I 0.12 NG/ML (< 0.10)
[2019-01-29 04:00] VITALS: BP 149/64
[2019-01-29] MEDS: FUROSEMIDE 40 MG/4 ML VIAL (J1940) IV SCH (04:07)
[2019-01-29] MEDS: IPRATROPIUM 0.5MG/ALBUTEROL 2.5MG INH SOL UD 3ML (DUONEB)(J7620) NEB SCH ×4 (04:13→20:32)
[2019-01-29 05:15] LABS: ALT/SGPT 14 U/L (12-78); BILIRUBIN,TOTAL 0.4 MG/DL (0.2-1.0); BLOOD UREA NITROGEN 24 MG/DL (7-18); CALCIUM LEVEL 8.9 MG/DL (8.8-10.2); CARBON DIOXIDE LEVEL 34 MEQ/L (21-32); CHLORIDE LEVEL 99 MEQ/L (98-107); CPK CREATINE PHOSPHOKINASE 155 U/L (39-308); CREATININE FOR GFR 1.19 MG/DL (0.70-1.30); GLOMERULAR FILTRATION RATE > 60.0 (>35); GLUCOSE, FASTING 148 MG/DL (70-100); MB/CK RELATIVE INDEX 2.19 (< OR =4); NT-PRO BNP 2072 PG/ML (<450); SODIUM LEVEL 139 MEQ/L (136-145); TOTAL PROTEIN 7.7 GM/DL (6.4-8.2)
[2019-01-29] MEDS: LEVOTHYROXINE 25MCG TABLET (0.025MG) PO SCH (06:03)
--- NOTE | 2019-01-29 07:42 | REP ---
Portable chest, 06:49 a.m., single AP semi upright view: Comparison is 01/28/2019. The interstitial infiltrates have resolved. There are no pleural effusions. Cardiomegaly and sternotomy wires are unchanged. The julee, mediastinum, skeletal structures are unremarkable. Impression: The interstitial infiltrates have resolved. Cardiomegaly, unchanged. Electronically Signed by Johnny Mcmullen MD 01/29/2019 07:33 A
[2019-01-29 08:00] VITALS: BP 135/61
--- NOTE | 2019-01-29 08:20 | CR ---
DATE OF CONSULTATION: 01/28/2019 PRIMARY CARE PROVIDER: Dr. Dom Carver. PRIMARY VEHICLE DISMANTLER: Dr. Elian Harris. REASON FOR CONSULTATION: Heart failure, accelerated hypertension. HISTORY OF PRESENT ILLNESS: 83-year-old male with a history of coronary artery disease, chronic obstructive pulmonary disease (COPD) who came to the hospital because of increasing shortness of breath. He was found to be in respiratory failure and his blood pressure was markedly elevated. He also was found to have a new left bundle branch block. Cardiology consultation was called and the case was discussed earlier today with the provider. We have decided to treat the patient for his congestive heart failure and accelerated hypertension as well as respiratory failure. Patient was admitted to intensive care unit (ICU) currently on BiPAP. When I saw Mr. Roge Dodson, he was in supine in bed in no acute distress and his daughters were at bedside. He stated he feels much better. He has passed already about 1.5 liters of urine. He denies any chest pain, palpitations. There was no orthopnea at that time. There is not report of bleeding. He takes medications regularly but it does not seem that he is compliant with his diet according to the history given by the family members. Patient is very hard of hearing and most of the information was taken from the charts, the nursing staff, and patient's family. He has a past medical history positive for coronary artery disease with coronary artery bypass graft and percutaneous transluminal coronary angioplasty (PTCA)/stent, hypertension, hyperlipidemia, diabetes mellitus, COPD, history of congestive heart failure secondary to left ventricular diastolic dysfunction, OCD, sleep apnea, smoking. He also has a history of gastroesophageal reflux disease, hypothyroidism, and restless leg syndrome. Past surgical history of positive for coronary artery bypass graft, carotid endarterectomy in [address] Adamson, appendectomy in 1967, and FRONT OFFICE MEDICAL ASSISTANT in the lower extremities for symptomatic peripheral artery disease (PAD). He also had a knee surgery in 1971. FAMILY HISTORY: Noncontributory. SOCIAL HISTORY: Patient lives with his one of his daughters. He does smoke. He denies any EtOH abuse. ALLERGIES: He has allergies to and intolerance to METFORMIN that causes diarrhea, CIPRO and CEFUROXIME as well as contrast media, red dye. ADVANCED DIRECTIVES: Patient has a DO NOT RESUSCITATE and DO NOT INTUBATE order. On physical examination, patient is alert and awake in no acute distress. His vital signs when I saw him reveal a blood pressure of 129/59 with a pulse of 76, respiration 20, and maximum temperature is 98.4 degrees Fahrenheit with a oxygen saturation of 99% on FiO2 of 0.5 on BiPAP. Examination of the head: Atraumatic. Neck is supple with extended jugular. The lungs did not reveal any wheezing. Could not appreciate any crackles. Rhonchi was noted in the upper airways. The heart examination revealed irregular heart sounds without gallops. The point of maximum impulse (PMI) is not displaced. There is no rub. Abdomen is soft and nontender. Bowel sounds are active. Extremities revealed trace ankle edema. Neurologic examination grossly was negative for focal deficit. LABS: CBC done today revealed a WBC 21.7, hemoglobin 14.2, hematocrit 45.9, and platelet 212,000. BMP revealed a sodium of 137, potassium 4.5, chloride 101, CO2 30, BUN 12, creatinine 0.9, GFR more than 60, fasting glucose 159, calcium 8.7. Serum magnesium 1.8. Liver enzymes reveal a total bilirubin 0.5, direct bilirubin 0.2, AST 10, ALT 16, alkaline phosphatase 66, 8.1. Albumin 3.6. Serum for BNP was 22,000. Serum troponin I was less than 0.02, 0.04, 0.12, and 0.12. Serum TSH 4.8. PT 15.3 with an INR of 1.0. ABG on admission revealed a pH 7.12, pCO2 91.5, pO2 67.5. Repeat ABG about 2-3 hours later revealed a pH 7.36, pCO2 52.0, pO2 240. Serum valproic acid was 22.9. Screening for influenza A and B were negative. Chest x-ray on 01/28/2019 revealed an increase in interstitial markings compatible with interstitial infiltrate and cardiomegaly. Sternotomy wire noted. Chest CT on 01/28/2019 revealed small bilateral pleural effusion and increased interstitial markings, multiple nodules, bullous emphysema. The lung nodules were not seen on previous chest CT on 09/03/2017. Abdominopelvic CT revealed diverticulosis but without diverticulitis, bilateral small pleural effusions. No lytic or blastic osseous lesions. There is a tiny bony cyst in the left iliac wing. Degenerative disease at the level of L5 and S1 was noted. MEDICATIONS: - 750 mg IV daily - lisinopril 5 mg by mouth at hour of sleep - metoprolol tartrate 50 mg by mouth at hour of sleep - ropinirole 2 mg by mouth at hour of sleep - Humalog as directed - DuoNeb as directed four times a day via nebulizer - Lasix 40 mg IV every 4 hours - Tylenol 650 mg every 4 hours as needed for pain or fever - Lovenox 40 mg subcu daily - atorvastatin 40 mg by mouth daily - valproic acid 500 mg by mouth twice a day - Cymbalta 20 mg by mouth twice a day - isosorbide mononitrate 30 mg by mouth daily - Keppra 1000 mg by mouth daily - metoprolol tartrate 25 mg by mouth daily - pantoprazole 40 mg by mouth daily - ropinirole 1 mg by mouth daily - levothyroxine 25 mcg by mouth daily IMPRESSION: 1. Respiratory failure secondary to a combination of factors such as congestive heart failure and exacerbation of chronic obstructive pulmonary disease (COPD). Patient does have a history of severe COPD with bullous emphysema and a long history of smoking. He said that he has improved significantly after IV Lasix and will continue the same but we will need to monitor closely his BUN and creatinine and his electrolytes. He is scheduled to have an echocardiogram done tomorrow 01/29/2019 and this will be reviewed then further recommendations will be given. His blood pressure seems to have improved significantly and we will continue current medications for now. Because of the combination of the angiotensin converting enzyme inhibitors (DAYNA), the diuretics, his long history of hypertension and diabetes mellitus and his age, we should monitor closely his BUN and creatinine and serum potassium. He did present with some new EKG changes, a left bundle branch block pattern and he will have an echocardiogram to check his LVEF. So far, serum troponin has been negative. He does have a history of coronary artery disease and there is no coronary artery indications, it does not seem as if there is any, he was started on a baby aspirin daily. It was a pleasure to participate in the care of . Roge Dodson for his underlying cardiac condition. I will continue to monitor him along with you. He appears to be stable and his condition seems to have improved significantly since in the hospital.
[2019-01-29] MEDS: ATORVASTATIN 20 MG TAB PO SCH (08:43)
[2019-01-29] MEDS: ISOSORBIDE MON. (IMDUR) 30 MG XR TAB PO SCH (08:43)
[2019-01-29] MEDS: rOPINIRole 1MG TAB PO SCH ×2 (08:44→20:22)
[2019-01-29] MEDS: ASPIRIN 81 MG ENTERIC TAB PO SCH (08:44)
[2019-01-29] MEDS: METOPROLOL TART 25 MG TABLET PO SCH (08:44)
[2019-01-29] MEDS: levETIRAcetam 250MG TABLET (KEPPRA) PO SCH (08:44)
[2019-01-29] MEDS: ENOXAPARIN 40 MG/0.4 ML SYRINGE (J1650) SC SCH (08:45)
[2019-01-29] MEDS: PANTOPRAZOLE 40MG TAB (PROTONIX) PO SCH (08:45)
[2019-01-29] MEDS ORDERED: ALBUTEROL SULFATE 2.5 MG/0.5 ML INH NEB SOLN NEB PRN (08:45)
[2019-01-29] MEDS: DIVALPROEX 500MG *ER* TAB PO SCH ×2 (08:45→20:21)
[2019-01-29] MEDS: DULoxetine 20 MG CAP (CYMBALTA) PO SCH ×2 (08:45→20:21)
[2019-01-29] MEDS: HumaLOG INSULIN (NovoLOG) PER UNIT SC SCH ×4 (08:46→20:20)
[2019-01-29 08:51] LABS: HEMATOCRIT 40.8 % (42.0-52.0); HEMOGLOBIN 12.7 g/dl (13.5-17.5); MEAN CORPUSCULAR HEMOGLOBIN 28.3 pg (27.0-33.0); MEAN CORPUSCULAR HGB CONC 31.1 g/dl (32.0-36.5); MEAN CORPUSCULAR VOLUME 90.9 fl (80.0-96.0); PLATELET COUNT, AUTOMATED 197 10^3/uL (150-450); RED BLOOD COUNT 4.49 10^6/uL (4.30-6.10); WHITE BLOOD COUNT 16.4 10^3/uL (4.0-10.0)
--- NOTE | 2019-01-29 08:57 | IPNPDOC ---
Subjective Date Seen The patient was seen on 01/29/19. Subjective Chief Complaint/HPI breathing better, no chest pain Constitutional: Denies: Chills, Night Sweats ENT: Denies: Head Aches, Dysphagia Pulmonary: Reports: Dyspnea (much improved ), Cough (chronic); Denies: Pleuritic Chest Pain Cardiovascular: Denies: Chest Pain, Palpitations Gastrointestinal: Denies: Nausea, Abdominal Pain Endocrine: Denies: Polydipsia Neurological: Denies: Weakness, Numbness, Change in speech Psych: Reports: Mood Normal Objective Physical Examination General Exam: Positive: Alert Eye Exam: Positive: EOMI Neck Exam: Positive: Supple; Negative: thyromegaly Chest Exam: Positive: Rhonchi (late inspiratory rhonchi.), Diminished; Negative: Rales, Wheezing Heart Exam: Positive: Rate Normal, Regular Rhythm; Negative: Murmurs Telemetry: Positive: No significant arrhythmia Abdomen Exam: Positive: Normal bowel sounds, Soft; Negative: Tenderness Extremity Exam: Negative: Clubbing, Edema Skin Exam: Positive: Nl turgor and temperature; Negative: Rash Psych Exam: Positive: Mental status NL Assessment /Plan Problems (1) Respiratory failure with hypercapnia Status: Acute Response to Treatment: Improving Problem Specific Plan: Consult Specialist Problem Text: he has some underlying COPD and uses BiPap inconsistently at home. developed increasing dyspnea over about one day, per family before presenting to ER yesterday in crisis. prompt improvement with diuretic and BiPap. (2) Congestive heart failure (CHF) Status: Acute Response to Treatment: Improving Problem Specific Plan: Consult Specialist Problem Text: Marked improvement after diuresis and use of properly fitting BiPap system. (3) CAD (coronary artery disease) Status: Chronic Response to Treatment: Stable Problem Specific Plan: Consult Specialist Problem Text: trivial elevation of troponin so not likely any recent injury. new LBBB noted. Echo scheduled for further eval (4) Left bundle branch block Status: Acute Response to Treatment: Stable Problem Specific Plan: Consult Specialist Problem Text: Hx of CAD. enzymes do not support high probability of recent myocardial injury. (5) Diabetes Status: Chronic (6) Seizure disorder Status: Chronic Response to Treatment: Stable Problem Text: On keppra and valproate (7) Migraine Status: Chronic Response to Treatment: Stable (on valproic acid for prophylaxis) (8) JESSIE treated with BiPAP Status: Chronic Response to Treatment: Improving Problem Specific Plan: Consult Specialist Problem Text: Upon application of BiPap device in ER patient demonstrated rapid improvement in signs and symptoms of hypercarbic respiratory failure. Has Bipap but not using it consistently or well. Says he has trouble achieving seal due to inadequate mask fit. Plan/VTE VTE Prophylaxis Ordered?: Yes Plan Respiratory: Other Respiratory (Can leave ICU when he transitions to successful use of his home BiPap device.) Diagnostics: Repeat EKG Advance Directives: DNR VS, I&O, 24H, Lorenzo Vital Signs/I&O Vital Signs Date Time Temp Pulse Resp B/P (MAP) Pulse Ox O2 Delivery O2 Flow Rate FiO2 01/29/19 04:00 99.0 62 20 149/64 (92) 94 2.0 01/29/19 01:38 40 01/28/19 12:20 BIPAP/CPAP I&O- Last 24 Hours up to 6 AM 01/29/19 06:00 Intake Total 480 ml Output Total 3390 ml Balance -2910 ml Laboratory Data 24H LABS Laboratory Tests 2 01/28/19 10:00: Blood Gas Bicarbonate Standard 26.5H, Arterial Blood pH 7.360, Arterial Blood Partial Pressure CO2 52.0H, Arterial Blood Partial Pressure O2 240.5H, Arterial Blood Total CO2 30.3, Arterial Blood HCO3 28.7H, Arterial Blood Base Excess 2.2H, Arterial Blood Oxygen Saturation 99.3H 01/28/19 12:30: Magnesium Level 1.7L, Total Creatine Kinase 70, Creatine Kinase MB 3.0, Creatine Kinase MB Relative Index 4.57H, Troponin I 0.04# 01/28/19 15:53: Total Creatine Kinase 73, Creatine Kinase MB 4.0H, Creatine Kinase MB Relative Index 4.79H, Troponin I 0.12#H 01/28/19 16:50: Bedside Glucose (Misc Panel) 156H 01/28/19 20:29: Bedside Glucose (Misc Panel) 161H 01/28/19 22:12: Total Creatine Kinase 81, Creatine Kinase MB 3.0, Creatine Kinase MB Relative Index 3.58, Troponin I 0.12H 01/29/19 04:25: Total Creatine Kinase 155#, Creatine Kinase MB 3.0, Creatine Kinase MB Relative Index 2.19, Troponin I 0.10, Anion Gap 6L, Glomerular Filtration Rate > 60.0, Blood Urea Nitrogen 24#H, Creatinine 1.19, Sodium Level 139, Potassium Level 4.0, Chloride Level 99, Carbon Dioxide Level 34H, Calcium Level 8.9, Aspartate Amino Transf (AST/SGOT) 12, Alanine Aminotransferase (ALT/SGPT) 14, Alkaline Phosphatase 53, Total Bilirubin 0.4, Total Protein 7.7, Albumin 3.0L, SA-Jej-P-Type Natriuretic Peptide 2072H, Albumin/Globulin Ratio 0.64L CBC/BMP Laboratory Tests 01/29/19 04:25 Calcium Level 8.9, Aspartate Amino Transf (AST/SGOT) 12, Alanine Aminotransferase (ALT/SGPT) 14, Total Creatine Kinase 155 #, Alkaline Phosphatase 53, Total Bilirubin 0.4, Total Protein 7.7, Albumin 3.0 L Microbiology Microbiology 01/28/19 Blood Culture, Received Pending 01/28/19 Blood Culture - Preliminary, Resulted No growth after 24 hours . All specim... 01/29/19 MRSA Screen, Received Pending Dom Carver MD Jan 29, 2019 08:57
[2019-01-29 10:00] VITALS: BP 158/70
[2019-01-29] MEDS: LevoFLOXacin 750 MG TABLET PO SCH (10:25)
[2019-01-29] MEDS: FUROSEMIDE 40 MG TAB PO SCH ×2 (10:26→18:41)
[2019-01-29] MEDS: TAMSULOSIN 0.4 MG CAP PO SCH (10:26)
[2019-01-29] MEDS ORDERED: LevoFLOXacin IV 750 MG in APPROPRIATE DILUENT 1 EA IV SCH (11:00)
[2019-01-29 12:00] VITALS: BP 154/67
[2019-01-29 14:49] LABS: HEMATOCRIT 40.2 % (42.0-52.0); HEMOGLOBIN 12.6 g/dl (13.5-17.5); MEAN CORPUSCULAR HEMOGLOBIN 28.3 pg (27.0-33.0); MEAN CORPUSCULAR HGB CONC 31.3 g/dl (32.0-36.5); MEAN CORPUSCULAR VOLUME 90.3 fl (80.0-96.0); PLATELET COUNT, AUTOMATED 198 10^3/uL (150-450); RED BLOOD COUNT 4.45 10^6/uL (4.30-6.10); WHITE BLOOD COUNT 14.1 10^3/uL (4.0-10.0)
[2019-01-29 16:00] VITALS: BP 101/67
[2019-01-29 20:00] VITALS: BP 132/61
[2019-01-29] MEDS: METOPROLOL TART 50 MG TAB PO SCH (20:22)
[2019-01-29] MEDS: LISINOPRIL 5 MG TAB PO SCH (20:22)
[2019-01-30] VITALS (7 sets, daily range): BP systolic 101–149; BP diastolic 52–67; O2SAT 94
[2019-01-30] MEDS: IPRATROPIUM 0.5MG/ALBUTEROL 2.5MG INH SOL UD 3ML (DUONEB)(J7620) NEB SCH ×4 (01:58→20:00)
[2019-01-30] MEDS: LEVOTHYROXINE 25MCG TABLET (0.025MG) PO SCH (05:14)
[2019-01-30] MEDS: LevoFLOXacin 750 MG TABLET PO SCH (05:14)
[2019-01-30 05:27] LABS: HEMATOCRIT 39.9 % (42.0-52.0); HEMOGLOBIN 12.3 g/dl (13.5-17.5); MEAN CORPUSCULAR HEMOGLOBIN 27.3 pg (27.0-33.0); MEAN CORPUSCULAR HGB CONC 30.8 g/dl (32.0-36.5); MEAN CORPUSCULAR VOLUME 88.7 fl (80.0-96.0); PLATELET COUNT, AUTOMATED 189 10^3/uL (150-450); WHITE BLOOD COUNT 13.7 10^3/uL (4.0-10.0)
[2019-01-30 05:46] LABS: CALCIUM LEVEL 8.7 MG/DL (8.8-10.2); CREATININE FOR GFR 1.31 MG/DL (0.70-1.30); GLOMERULAR FILTRATION RATE 55.8 (>35); POTASSIUM SERUM 3.9 MEQ/L (3.5-5.1)
[2019-01-30] MEDS: HumaLOG INSULIN (NovoLOG) PER UNIT SC SCH ×4 (07:51→20:34)
[2019-01-30] MEDS: levETIRAcetam 250MG TABLET (KEPPRA) PO SCH (08:28)
[2019-01-30] MEDS: TAMSULOSIN 0.4 MG CAP PO SCH (08:28)
[2019-01-30] MEDS: ASPIRIN 81 MG ENTERIC TAB PO SCH (08:28)
[2019-01-30] MEDS: ATORVASTATIN 20 MG TAB PO SCH (08:28)
[2019-01-30] MEDS: DIVALPROEX 500MG *ER* TAB PO SCH ×2 (08:28→20:43)
[2019-01-30] MEDS: ENOXAPARIN 40 MG/0.4 ML SYRINGE (J1650) SC SCH (08:28)
[2019-01-30] MEDS: METOPROLOL TART 25 MG TABLET PO SCH (08:29)
[2019-01-30] MEDS: ISOSORBIDE MON. (IMDUR) 30 MG XR TAB PO SCH (08:29)
[2019-01-30] MEDS: FUROSEMIDE 40 MG TAB PO SCH (08:29)
[2019-01-30] MEDS: DULoxetine 20 MG CAP (CYMBALTA) PO SCH ×2 (08:29→20:43)
[2019-01-30] MEDS: rOPINIRole 1MG TAB PO SCH ×2 (08:30→20:43)
[2019-01-30] MEDS: PANTOPRAZOLE 40MG TAB (PROTONIX) PO SCH (08:30)
--- NOTE | 2019-01-30 09:48 | IPNPDOC ---
Subjective Date Seen The patient was seen on 01/30/19. Subjective Chief Complaint/HPI feeling better, wants to attend family event on Sat. Constitutional: Denies: Chills ENT: Denies: Head Aches Pulmonary: Reports: Dyspnea (near baseline), Cough (improved); Denies: Pleuritic Chest Pain Cardiovascular: Denies: Chest Pain, Palpitations Gastrointestinal: Denies: Nausea, Vomiting Hematologic: Denies: Bruising Neurological: Denies: Weakness Psych: Reports: Mood Normal Objective Physical Examination General Exam: Positive: Alert, Cooperative Eye Exam: Positive: PERRLA, EOMI Neck Exam: Positive: Supple; Negative: thyromegaly Chest Exam: Positive: Rhonchi (late inspiratory rhonchi.), Diminished; Negative: Rales, Wheezing Heart Exam: Positive: Rate Normal, Regular Rhythm; Negative: Murmurs Telemetry: Positive: No significant arrhythmia Abdomen Exam: Positive: Normal bowel sounds, Soft; Negative: Tenderness Extremity Exam: Negative: Clubbing, Edema Skin Exam: Positive: Nl turgor and temperature; Negative: Rash Psych Exam: Positive: Mental status NL Assessment /Plan Problems (1) Respiratory failure with hypercapnia Status: Acute Response to Treatment: Improving Problem Specific Plan: Consult Specialist Problem Text: overnight he used his home BiPap system most of the night. he has some underlying COPD and uses BiPap inconsistently at home. developed i ncreasing dyspnea over about one day, per family before presenting to ER yesterday in crisis. prompt improvement with diuretic and BiPap. (2) Congestive heart failure (CHF) Status: Acute Response to Treatment: Improving Problem Specific Plan: Consult Specialist Problem Text: CXR yesterday showed significant improvement. symptoms better. has increase in Creat and BUN so will back off on lasix dose. Marked improvement after diuresis and use of properly fitting BiPap system. (3) CAD (coronary artery disease) Status: Chronic Response to Treatment: Stable Problem Specific Plan: Consult Specialist Problem Text: trivial elevation of troponin so not likely any recent injury. new LBBB noted. Echo scheduled for further eval (4) Left bundle branch block Status: Acute Response to Treatment: Stable Problem Specific Plan: Consult Specialist Problem Text: Hx of CAD. enzymes do not support high probability of recent myocardial injury. (5) Diabetes Status: Chronic Response to Treatment: Stable (6) Seizure disorder Status: Chronic Response to Treatment: Stable Problem Specific Plan: Monitor Clinically Problem Text: On keppra and valproate (7) Migraine Status: Chronic Response to Treatment: Stable (on valproic acid for prophylaxis) Problem Specific Plan: Monitor Clinically (8) JESSIE treated with BiPAP Status: Chronic Response to Treatment: Improving Problem Specific Plan: Consult Specialist Problem Text: will move to med/surg using his home BiPap with a new mask supplied by the hospital. Upon application of BiPap device in ER patient demonstrated rapid improvement in signs and symptoms of hypercarbic respiratory failure. Has Bipap but not using it consistently or well. Says he has trouble achieving seal due to inadequate mask fit. Plan/VTE VTE Prophylaxis Ordered?: Yes Plan Respiratory: Other Respiratory (Can leave ICU when he transitions to successful use of his home BiPap device.) Diagnostics: Repeat EKG Advance Directives: DNR VS, I&O, 24H, Fishbone Vital Signs/I&O Vital Signs Date Time Temp Pulse Resp B/P (MAP) Pulse Ox O2 Delivery O2 Flow Rate FiO2 01/30/19 08:29 77 01/30/19 08:29 129/61 01/30/19 07:43 94 Nasal Cannula 4.0 01/30/19 04:00 98.2 22 01/29/19 12:00 40 I&O- Last 24 Hours up to 6 AM 01/30/19 06:00 Intake Total 1040 ml Output Total 930 ml Balance 110 ml Laboratory Data 24H LABS Laboratory Tests 2 01/29/19 11:34: Bedside Glucose (Misc Panel) 146H 01/29/19 14:38: Nucleated Red Blood Cells % (auto) 0.0 01/29/19 18:36: Bedside Glucose (Misc Panel) 224H 01/29/19 20:20: Bedside Glucose (Misc Panel) 150H 01/30/19 05:16: Nucleated Red Blood Cells % (auto) 0.0, Anion Gap 5L, Glomerular Filtration Rate 55.8, Blood Urea Nitrogen 36H, Creatinine 1.31H, Sodium Level 140, Potassium Level 3.9, Chloride Level 101, Carbon Dioxide Level 34H, Calcium Level 8.7L CBC/BMP Laboratory Tests 01/29/19 14:38 Red Blood Count 4.45, Mean Corpuscular Volume 90.3, Mean Corpuscular Hemoglobin 28.3, Mean Corpuscular Hemoglobin Concent 31.3 L, Red Cell Distribution Width 15.9 H 01/30/19 05:16 Red Blood Count 4.50, Mean Corpuscular Volume 88.7, Mean Corpuscular Hemoglobin 27.3, Mean Corpuscular Hemoglobin Concent 30.8 L, Red Cell Distribution Width 15.9 H, Calcium Level 8.7 L Microbiology Microbiology 01/28/19 Blood Culture - Preliminary, Resulted No Growth after 48 hours. All Specime... 01/28/19 Blood Culture - Preliminary, Resulted No Growth after 48 hours. All Specime... 01/29/19 MRSA Screen, Received Pending Dom Carver MD Jan 30, 2019 09:48
--- NOTE | 2019-01-30 15:48 | ECGEPIP ---
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
[2019-01-30] MEDS: LISINOPRIL 5 MG TAB PO SCH (20:43)
[2019-01-30] MEDS: METOPROLOL TART 50 MG TAB PO SCH (20:44)
[2019-01-31 00:31] VITALS: O2SAT 95
[2019-01-31] MEDS: IPRATROPIUM 0.5MG/ALBUTEROL 2.5MG INH SOL UD 3ML (DUONEB)(J7620) NEB SCH ×3 (00:31→13:41)
[2019-01-31 02:59] VITALS: O2SAT 94
[2019-01-31] MEDS: LEVOTHYROXINE 25MCG TABLET (0.025MG) PO SCH (05:31)
[2019-01-31] MEDS: LevoFLOXacin 750 MG TABLET PO SCH (05:31)
[2019-01-31 06:00] VITALS: BP 139/69
[2019-01-31 06:48] LABS: HEMATOCRIT 40.6 % (42.0-52.0); HEMOGLOBIN 12.5 g/dl (13.5-17.5); MEAN CORPUSCULAR HEMOGLOBIN 27.6 pg (27.0-33.0); MEAN CORPUSCULAR HGB CONC 30.8 g/dl (32.0-36.5); MEAN CORPUSCULAR VOLUME 89.6 fl (80.0-96.0); PLATELET COUNT, AUTOMATED 213 10^3/uL (150-450); RED BLOOD COUNT 4.53 10^6/uL (4.30-6.10); WHITE BLOOD COUNT 12.1 10^3/uL (4.0-10.0)
[2019-01-31 07:02] LABS: BLOOD UREA NITROGEN 34 MG/DL (7-18); CALCIUM LEVEL 9.2 MG/DL (8.8-10.2); CARBON DIOXIDE LEVEL 34 MEQ/L (21-32); CHLORIDE LEVEL 101 MEQ/L (98-107); CREATININE FOR GFR 1.17 MG/DL (0.70-1.30); GLOMERULAR FILTRATION RATE > 60.0 (>35); GLUCOSE, FASTING 142 MG/DL (70-100); SODIUM LEVEL 142 MEQ/L (136-145)
[2019-01-31] MEDS: HumaLOG INSULIN (NovoLOG) PER UNIT SC SCH ×2 (07:30→12:33)
--- NOTE | 2019-01-31 07:31 | ECHO ---
DATE OF PROCEDURE: 01/29/2019 DATE OF : 1935 AGE: 83 REFERRING PROVIDER: Dr. Dr. Dom Carver CLARIFIER OPERATOR: Dr. Harris PATIENT LOCATION: Room 3210 REASON FOR THE ECHOCARDIOGRAM: Congestive heart failure, unspecified. 2D MEASUREMENTS: IVS: 1.3 cm LV: 4.2 cm LVPW: 1.3 cm LA: 4.7 cm Aorta: 2.5 cm IVC: 2.3 cm DOPPLER MEASUREMENTS: Peak velocity across the aortic valve: 1.8 m/s Peak velocity across the LVOT: 0.84 m/s Mitral E: 0.71 Mitral A: 0.82 Ratio: 0.9 2D COMMENTS: 1. Normal left ventricular size with mildly increased left ventricular wall thickness. Left ventricular systolic function is normal with an estimated global left ventricular systolic ejection fraction of 55-60%. 2. Mildly enlarged left atrium. Normal right atrium and right ventricle. 3. The atrial septum appeared to be normal without evidence of defect or shunt. 4. Normal aortic root. 5. No pericardial effusion seen. 6. Mildly calcified aortic valve with normal leaflet excursion. Mildly calcified mitral annulus with normal anterior mitral valve leaflet motion. Normal tricuspid valve and pulmonic valve. The proximal pulmonary artery branches also appeared to be normal in size. 7. The inferior vena cava was mildly enlarged, central venous pressure might be elevated. DOPPLER: No significant valvular abnormalities detected. IMPRESSION: 1. Normal global left ventricular systolic function with mild concentric left ventricular hypertrophy. Not mentioned above, the anterior septum appeared to be dyskinetic, but was dell well. 2. Mildly calcified aortic valve with trivial aortic stenosis, but no aortic regurgitation. 3. Mitral annulus calcification without any evidence of significant mitral regurgitation or mitral stenosis. The left atrium is mildly enlarged, probably related to underlying left ventricular diastolic dysfunction. 4. The study was technically limited due to poor acoustic window secondary to body habitus.
[2019-01-31 09:00] VITALS: O2SAT 95
[2019-01-31] MEDS ORDERED: FUROSEMIDE 40 MG TAB PO SCH (09:00)
[2019-01-31] MEDS: DIVALPROEX 500MG *ER* TAB PO SCH (09:00)
[2019-01-31] MEDS: PANTOPRAZOLE 40MG TAB (PROTONIX) PO SCH (09:00)
[2019-01-31] MEDS: ASPIRIN 81 MG ENTERIC TAB PO SCH (09:01)
[2019-01-31] MEDS: DULoxetine 20 MG CAP (CYMBALTA) PO SCH (09:01)
[2019-01-31] MEDS: ATORVASTATIN 20 MG TAB PO SCH (09:01)
[2019-01-31] MEDS: rOPINIRole 1MG TAB PO SCH (09:01)
[2019-01-31] MEDS: ISOSORBIDE MON. (IMDUR) 30 MG XR TAB PO SCH (09:01)
[2019-01-31 09:02] VITALS: BP 143/65
[2019-01-31] MEDS: METOPROLOL TART 25 MG TABLET PO SCH (09:02)
[2019-01-31] MEDS: TAMSULOSIN 0.4 MG CAP PO SCH (09:02)
[2019-01-31] MEDS: levETIRAcetam 250MG TABLET (KEPPRA) PO SCH (09:02)
[2019-01-31] MEDS: ENOXAPARIN 40 MG/0.4 ML SYRINGE (J1650) SC SCH (09:02)
[2019-01-31] MEDS ORDERED: LEVA750T7 PO (09:33)
[2019-01-31] MEDS ORDERED: ASPI81TAEC PO (09:33)
[2019-01-31] MEDS ORDERED: FURO40TA2 PO (09:33)
--- NOTE | 2019-01-31 09:39 | IPNPDOC ---
Subjective Date Seen The patient was seen on 01/31/19. Subjective Chief Complaint/HPI Pt this morning is eager to go home. He feels he has all the supplies he needs at home to go. His has told nursing that she doesn't believe the O2 concentrator they have works. General: Denies: Fatigue Constitutional: Denies: Chills, Fever Pulmonary: Reports: Dyspnea, Cough Cardiovascular: Denies: Chest Pain, Palpitations Gastrointestinal: Denies: Nausea, Vomiting, Diarrhea Neurological: Denies: Weakness Psych: Reports: Mood Normal Objective Physical Examination General Exam: Positive: Alert, Cooperative ENT Exam: Positive: Mucous membr. moist/pink Neck Exam: Positive: Supple; Negative: thyromegaly Chest Exam: Positive: Rhonchi (late inspiratory rhonchi.), Diminished; Negative: Rales, Wheezing Heart Exam: Positive: Rate Normal, Regular Rhythm; Negative: Murmurs Telemetry: Positive: No significant arrhythmia Abdomen Exam: Positive: Normal bowel sounds, Soft; Negative: Tenderness Extremity Exam: Negative: Clubbing, Edema Psych Exam: Positive: Mental status NL Assessment /Plan Problems (1) Respiratory failure with hypercapnia Status: Acute Response to Treatment: Improving Problem Specific Plan: Consult Specialist Problem Text: 01/31 Will need continuous home O2 with portability, nursing/PFS aware, will work with pt and Pastor to ensure this is in place prior to d/c. He also needs a new BIPAP mask at home. 01/30 overnight he used his home BiPap system most of the night. he has some underlying COPD and uses BiPap inconsistently at home. developed increasing dyspnea over about one day, per family before presenting to ER yesterday in crisis. prompt improvement with diuretic and BiPap. (2) Congestive heart failure (CHF) Status: Acute Response to Treatment: Improving Problem Specific Plan: Consult Specialist Problem Text: 01/31 Scr/BUN improved today, fluid status appears compensated. Plan to d/c on Lasix 40 mg daily, vs 20 that he came in on. 01/30 CXR yesterday showed significant improvement. symptoms better. has increase in Creat and BUN so will back off on lasix dose. Marked improvement after diuresis and use of properly fitting BiPap system. (3) CAD (coronary artery disease) Status: Chronic Response to Treatment: Stable Problem Specific Plan: Consult Specialist Problem Text: trivial elevation of troponin so not likely any recent injury. new LBBB noted. Echo scheduled for further eval (4) Left bundle branch block Status: Acute Response to Treatment: Stable Problem Specific Plan: Consult Specialist Problem Text: Hx of CAD. enzymes do not support high probability of recent myocardial injury. (5) Diabetes Status: Chronic Response to Treatment: Stable (6) Seizure disorder Status: Chronic Response to Treatment: Stable Problem Specific Plan: Monitor Clinically Problem Text: On keppra and valproate (7) Migraine Status: Chronic Response to Treatment: Stable (on valproic acid for prophylaxis) Problem Specific Plan: Monitor Clinically (8) JESSIE treated with BiPAP Status: Chronic Response to Treatment: Improving Problem Specific Plan: Consult Specialist Problem Text: will move to med/surg using his home BiPap with a new mask supplied by the hospital. Upon application of BiPap device in ER patient demonstrated rapid improvement in signs and symptoms of hypercarbic respiratory failure. Has Bipap but not using it consistently or well. Says he has trouble achieving seal due to inadequate mask fit. Plan/VTE VTE Prophylaxis Ordered?: Yes Plan Respiratory: Other Respiratory (Can leave ICU when he transitions to successful use of his home BiPap device.) Diagnostics: Repeat EKG Advance Directives: DNR VS, I&O, 24H, [facility] Vital Signs/I&O Vital Signs Date Time Temp Pulse Resp B/P (MAP) Pulse Ox O2 Delivery O2 Flow Rate FiO2 01/31/19 09:02 65 143/65 01/31/19 06:00 98.0 18 92 01/31/19 02:59 BIPAP/CPAP 3.0 01/29/19 12:00 40 I&O- Last 24 Hours up to 6 AM 01/31/19 06:00 Intake Total 990 ml Output Total 550 ml Balance 440 ml Laboratory Data 24H LABS Laboratory Tests 2 01/30/19 11:51: Bedside Glucose (Misc Panel) 107 01/30/19 16:37: Bedside Glucose (Misc Panel) 163H 01/30/19 20:28: Bedside Glucose (Misc Panel) 223H 01/31/19 06:02: Nucleated Red Blood Cells % (auto) 0.0, Anion Gap 7L, Glomerular Filtration Rate > 60.0, Blood Urea Nitrogen 34H, Creatinine 1.17, Sodium Level 142, Potassium Level 4.0, Chloride Level 101, Carbon Dioxide Level 34H, Calcium Level 9.2 01/31/19 06:48: Bedside Glucose (Misc Panel) 170H CBC/BMP Laboratory Tests 01/31/19 06:02 Red Blood Count 4.53, Mean Corpuscular Volume 89.6, Mean Corpuscular Hemoglobin 27.6, Mean Corpuscular Hemoglobin Concent 30.8 L, Red Cell Distribution Width 15.7 H, Calcium Level 9.2 Microbiology Microbiology 01/28/19 Blood Culture - Preliminary, Resulted No Growth after 72 hours. All specime... 01/28/19 Blood Culture - Preliminary, Resulted No Growth after 72 hours. All specime... 01/29/19 MRSA Screen - Final, Complete Attending Note Attending Note Consistent use of dentures will aid in achieving good fit with his mask. JACKELYN RAMIRES PA-C Jan 31, 2019 09:39 Dom Carver MD Jan 31, 2019 11:15
[2019-01-31 14:00] VITALS: BP 128/62
--- NOTE | 2019-02-03 09:53 | DSES ---
DATE OF ADMISSION: 01/28/2019 DATE OF DISCHARGE: 01/31/2019 PRIMARY CARE PROVIDER: SARAH Oreilly ATTENDING PHYSICIAN: Dom Carver MD HISTORY: This is an 83-year-old male patient who follows with Ayanna Lucio in the outpatient setting who presented to [facility] emergency room with increased shortness of breath. Upon presentation to the emergency room, he was found to be in respiratory failure with CO2 retention. He was placed on BiPAP. He noted that he had had some increased shortness of breath the day prior to presentation. The day prior to that had some substernal chest discomfort. Initial troponin was negative. He was identified to have a new left bundle branch block accompanied by his tachycardia on exam. He was admitted to the intensive care unit with acute hypercarbic respiratory failure, pattern compatible with acute diastolic on chronic diastolic congestive heart failure. Dr. Cortez, instructor modeling, was consulted for assistance. He is the patient's primary riveter in the outpatient setting who recommended adjustments to the patient's BiPAP settings and ultimately had adjustments to his BiPAP mask. The patient was seen in consultation by Dr. Siddiqui during his hospitalization for EKG changes who recommended echocardiogram which was also performed while the patient was in hospital. This was suggestive of normal left ventricular systolic function, mild concentric left ventricular hypertrophy (LVH). Anterior septum appeared to be dyskinetic, but dell mild. Mildly calcified aortic valve with trivial aortic stenosis. No aortic regurgitation. Mitral annular calcification without any evidence of significant mitral regurgitation or stenosis. The left atrium is mildly enlarged, probably related to underlying left ventricular diastolic dysfunction. The study was technically limited due to poor acoustic window secondary to body habitus. The patient's respiratory status did improve during his hospitalization. His BiPAP mask was changed, to be discharged to the hospital with this BiPAP mask and he will have his own setup in the outpatient setting. He is requiring chronic oxygen with rest, ambulation and fed in through his BiPAP. [facility] has coordinated this for the patient in the outpatient setting with portability. DISCHARGE DIAGNOSES: Include: Acute respiratory failure with hypercapnia. Acute on chronic diastolic congestive heart failure. Coronary artery disease. Left bundle branch block. Diabetes mellitus type 2. Seizure disorder. Migraines. Obstructive sleep apnea with BiPAP. DISCHARGE MEDICATIONS: Include: - aspirin 81 mg daily - furosemide 40 mg daily - Levaquin 750 mg daily - albuterol sulfate 2.5 mg inhaled 4 times daily - atorvastatin 40 mg daily - Dymista 1 spray intranasally twice daily - cyclosporine 0.05% one drop each eye twice daily - Depakote ER 500 mg twice a day - duloxetine 20 mg twice a day - Combivent Respimat 20/100 one puff inhaled 4 times daily - isosorbide mononitrate ER 30 mg by mouth daily - levothyroxine 25 mcg by mouth daily - lisinopril 5 mg by mouth at bedtime - metformin 500 mg by mouth twice a day - metoprolol 25 mg in the morning, 50 mg before bed - Myrbetriq 50 mg by mouth daily - Protonix 40 mg daily - ropinirole 1 mg daily, 2 mg before bed - Januvia 100 mg daily - Flomax 0.4 mg daily - PreserVision Areds 2 soft gels 1 capsule by mouth twice a day DISCHARGE PLAN: Followup with Ayanna Lucio in one week. Followup with Dr. Cortez. Activity: As tolerated. Diet: Consistent carbohydrate, no added salt, 1800 mL fluid restriction.
--- NOTE | 2019-02-04 01:01 | ECGEPIP ---
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 10/20/17 Electronically Signed On 02-04-2019 1:01:32 EDT by Ron Infante
== END 2019-01-31 17:25 | disposition home health service (06) | DRG 291 ==
LOC: EDBD 07:44 → M ED 07:44 → M ED INP 10:55 → M ICU 12:12 → M MSPAV 01-30 11:08
PROVIDERS: ADMIT Family Medicine; ATTEND Family Medicine
DX: I11.0 Hypertensive heart disease with heart failure (principal); J96.21 Acute and chronic respiratory failure with hypoxia; J96.22 Acute and chronic respiratory failure with hypercapnia; E11.40 Type 2 diabetes mellitus with diabetic neuropathy, unspecified; G40.909 Epilepsy, unspecified, not intractable, without status epilepticus; G47.33 Obstructive sleep apnea (adult) (pediatric); G43.909 Migraine, unspecified, not intractable, without status migrainosus; I25.10 Atherosclerotic heart disease of native coronary artery without angina pectoris; I44.7 Left bundle-branch block, unspecified; Z79.82 Long term (current) use of aspirin; Z79.899 Other long term (current) drug therapy; J44.9 Chronic obstructive pulmonary disease, unspecified; I50.33 Acute on chronic diastolic (congestive) heart failure; Z95.1 Presence of aortocoronary bypass graft; Z85.46 Personal history of malignant neoplasm of prostate; F17.210 Nicotine dependence, cigarettes, uncomplicated; Z91.041 Radiographic dye allergy status; Z66 Do not resuscitate; F32.9 Major depressive disorder, single episode, unspecified; F03.90 Unspecified dementia, unspecified severity, without behavioral disturbance, psychotic disturbance, mood disturbance, and anxiety; E78.49 Other hyperlipidemia; E03.9 Hypothyroidism, unspecified

== ENCOUNTER → 2019-02-12 | Outpatient (CLI) | payer MEDICARE, OTHER ==
[~2019-02-12] MED LIST changes: +FURO40TA2 PO; +JANU100T PO; +LEVA750T7 PO; +MYRB50TA PO; +PRES10CA2 PO
--- NOTE | 2019-02-12 15:20 | REP ---
PARTIAL AP AND LATERAL LEFT KNEE: HISTORY: Pain. There is no acute fracture or dislocation. There is minimal narrowing of the medial knee joint space. The lateral knee joint space and patellofemoral joint space are normal in appearance. An osteophyte is present on the patella. Calcification is present lateral to the proximal tibia. This represents ligamentous or tendon calcification. A stent is present posterior to the distal femur. IMPRESSION: Degenerative change as described above. Electronically Signed by Winston Dominguez MD 02/12/2019 03:26 P
== END ==
LOC: M ADAMS 14:40
PROVIDERS: ATTEND Physician Assistant
DX: M17.12 Unilateral primary osteoarthritis, left knee (principal); M25.762 Osteophyte, left knee; M25.562 Pain in left knee; Z12.5 Encounter for screening for malignant neoplasm of prostate; E11.40 Type 2 diabetes mellitus with diabetic neuropathy, unspecified
CPT/HCPCS: 73560; 80048; 83036; 99495; G0103

== ENCOUNTER → 2019-02-12 | Outpatient (REF) | payer MEDICARE, OTHER ==
[2019-02-12 21:28] LABS: BLOOD UREA NITROGEN 23 MG/DL (7-18); CALCIUM LEVEL 8.6 MG/DL (8.8-10.2); CARBON DIOXIDE LEVEL 32 MEQ/L (21-32); CHLORIDE LEVEL 99 MEQ/L (98-107); CREATININE FOR GFR 1.02 MG/DL (0.70-1.30); GLOMERULAR FILTRATION RATE > 60.0 (>35); GLUCOSE, FASTING 149 MG/DL (70-100); SODIUM LEVEL 140 MEQ/L (136-145)
[2019-02-12 21:35] LABS: HEMOGLOBIN A1c 8.6 %
== END ==
LOC: M SFHCADAM 14:23
PROVIDERS: ATTEND Physician Assistant
DX: E11.40 Type 2 diabetes mellitus with diabetic neuropathy, unspecified (principal); J44.9 Chronic obstructive pulmonary disease, unspecified; Z12.5 Encounter for screening for malignant neoplasm of prostate
CPT/HCPCS: 80048; 83036; G0103

== ENCOUNTER → 2019-03-18 | Outpatient (CLI) | payer MEDICARE, OTHER | LOC: M SMT 09:50 | PROVIDERS: ATTEND Physician Assistant Medical | DX: R56.9 Unspecified convulsions (principal); Z51.81 Encounter for therapeutic drug level monitoring; E11.40 Type 2 diabetes mellitus with diabetic neuropathy, unspecified ==

== ENCOUNTER → 2019-03-18 | Outpatient (CLI) | payer MEDICARE, OTHER ==
[2019-03-18 13:36] LABS: BLOOD UREA NITROGEN 18 MG/DL (7-18); CALCIUM LEVEL 9.1 MG/DL (8.8-10.2); CARBON DIOXIDE LEVEL 31 MEQ/L (21-32); CHLORIDE LEVEL 101 MEQ/L (98-107); CREATININE FOR GFR 0.92 MG/DL (0.70-1.30); GLOMERULAR FILTRATION RATE > 60.0 (>35); GLUCOSE, FASTING 117 MG/DL (70-100); POTASSIUM SERUM 4.5 MEQ/L (3.5-5.1); SODIUM LEVEL 141 MEQ/L (136-145)
[2019-03-18 14:43] LABS: HEMOGLOBIN A1c 8.1 %
== END ==
LOC: M SMT 09:47
PROVIDERS: ATTEND Family Medicine
DX: E11.40 Type 2 diabetes mellitus with diabetic neuropathy, unspecified (principal)

== ENCOUNTER → 2019-03-27 | Outpatient (REF) | payer MEDICARE, OTHER | LOC: M SMT 17:14 | PROVIDERS: ATTEND Urology | DX: N39.43 Post-void dribbling (principal) ==

== ENCOUNTER → 2019-03-31 | Outpatient (CLI) | payer MEDICARE, OTHER ==
--- NOTE | 2019-03-31 18:27 | REP ---
MODIFIED BARIUM SWALLOW: Modified barium swallow was performed in conjunction with the speech pathologist. Barium material of varying consistencies were ingested under fluoroscopic observation. At no point was there laryngeal penetration of tracheal aspiration with prompt passage of these materials through the oropharynx and hypopharynx into the esophagus. Detailed report will be will be provided by Speech pathology. 0.9 minutes of fluoroscopy time was utilized. Electronically Signed by Johnny Garcia MD 04/01/2019 04:25 P
--- NOTE | 2019-04-02 10:51 | NUR ---
Pt seen for Modified Barium Swallow Study d/t c/o coughing during meals. Pt reports that cough is less prevalent when he uses a straw. reports that he often coughs during his meal. Pt did not present with dysphagia with this study. However, with COPD diagnosis, it is possible that Pt is fatiguing and coordination of breathing for swallow is interrupted. Recommend: Regular solids (cut <dime size with extra sauces/gravies/condiments) and regular thin liquids (using a straw). Meds whole with liquid wash using a straw Recommend: Dysphagia therapy for compensatory strategies related to COPD. Addendum: 04/02/19 at 1056 by BABATUNDE SHABAZZ [facility] Amended: Links added.
== END ==
LOC: M ST 14:38
PROVIDERS: ATTEND Family Medicine
DX: T17.920A Food in respiratory tract, part unspecified causing asphyxiation, initial encounter (principal)

== ENCOUNTER → 2019-05-29 | Outpatient (REF) | payer MEDICARE, OTHER ==
[2019-05-29 18:24] LABS: AMORPHOUS SEDIMENT SMALL (NEGATIVE); APPEARANCE, URINE CLEAR (CLEAR); BACTERIA, URINE AUTO NEGATIVE (NEGATIVE); BILIRUBIN, URINE AUTO NEGATIVE (NEGATIVE); BLOOD, URINE BLOOD NEGATIVE (NEGATIVE); COLOR, URINE YELLOW (YELLOW); GLUCOSE, URINE (UA) AUTO NEGATIVE (NEGATIVE); KETONE, URINE AUTO NEGATIVE (NEGATIVE); LEUKOCYTE ESTERASE, URINE AUTO 2+ (NEGATIVE); MUCUS, URINE SMALL (NEGATIVE); NITRITE, URINE AUTO NEGATIVE (NEGATIVE); PROTEIN, URINE AUTO NEGATIVE (NEGATIVE); RBC, URINE AUTO 2 /HPF (0-3); SPECIFIC GRAVITY URINE AUTO 1.008 (1.002-1.035); SQUAMOUS EPITHELIAL CELL UR AU 0 /HPF (0-6); UROBILINOGEN, URINE AUTO 0.2 mg/dL (0.0-2.0); WBC, URINE AUTO 59 /HPF (0-3)
== END ==
LOC: M SMT 17:21
PROVIDERS: ATTEND Nurse Practitioner Women's Health
DX: R35.0 Frequency of micturition (principal)
CPT/HCPCS: 51798; 81001; 87086; G0463

== ENCOUNTER → 2019-06-27 | Outpatient (REF) | payer MEDICARE, OTHER | LOC: M SFHCPLAZ 16:46 | PROVIDERS: ATTEND Dermatology | DX: D04.30 Carcinoma in situ of skin of unspecified part of face (principal); L57.8 Other skin changes due to chronic exposure to nonionizing radiation ==

== ENCOUNTER 2019-08-11 09:44 | Inpatient (IN) | payer MEDICARE, OTHER ==
[~2019-08-11] VITALS: Ht 182.9 cm; Wt 94.4 kg
[~2019-08-11 09:44] MED LIST changes: -GLIM2TAB PO; +GLIM2TAB2 PO
--- NOTE | 2019-08-11 10:26 | REP ---
Single view chest: 08/11/2019. Indication: Dyspnea. Cough. Comparison: 01/29/2019. Findings: The lungs are clear. Apical scarring and borderline cardiomegaly are redemonstrated. The patient is status post median sternotomy. There is no pleural effusion or pneumothorax. Impression: No acute cardiopulmonary process. Electronically Signed by Manny Beckford DO 08/11/2019 10:18 A
[2019-08-11] MEDS ORDERED: ALBUTEROL SULFATE 2.5 MG/0.5 ML INH NEB SOLN NEB ONE (10:30)
[2019-08-11 11:58] LABS: BASO # 0.1 10^3/uL (0.0-0.2); BASO % 0.3 % (0.0-1.0); HEMATOCRIT 43.2 % (42.0-52.0); HEMOGLOBIN 13.9 g/dl (13.5-17.5); LYMPH % 4.5 % (24.0-44.0); MEAN CORPUSCULAR HEMOGLOBIN 30.8 pg (27.0-33.0); MEAN CORPUSCULAR HGB CONC 32.2 g/dl (32.0-36.5); MEAN CORPUSCULAR VOLUME 95.6 fl (80.0-96.0); MONO % 4.6 % (0.0-5.0); NEUTROPHILS # 19.3 10^3/uL (1.5-8.5); NEUTROPHILS % 89.2 % (36.0-66.0); PLATELET COUNT, AUTOMATED 156 10^3/uL (150-450); RED BLOOD COUNT 4.52 10^6/uL (4.30-6.10); WHITE BLOOD COUNT 21.7 10^3/uL (4.0-10.0)
[2019-08-11 12:12] LABS: INR 1.08; PROTHROMBIN TIME 13.7 SECONDS (11.8-14.0)
[2019-08-11 12:27] LABS: ALBUMIN 3.4 GM/DL (3.2-5.2); ALT/SGPT 25 U/L (12-78); BILIRUBIN,DIRECT 0.2 MG/DL (0.0-0.2); BILIRUBIN,TOTAL 0.5 MG/DL (0.2-1.0); BLOOD UREA NITROGEN 16 MG/DL (7-18); CALCIUM LEVEL 8.7 MG/DL (8.8-10.2); CARBON DIOXIDE LEVEL 29 MEQ/L (21-32); CHLORIDE LEVEL 101 MEQ/L (98-107); CK-MB VALUE MASS 2.1 NG/ML (<3.6); CPK CREATINE PHOSPHOKINASE 76 U/L (39-308); CREATININE FOR GFR 0.99 MG/DL (0.70-1.30); GLOMERULAR FILTRATION RATE > 60.0 (>35); GLUCOSE, FASTING 234 MG/DL (70-100); MB/CK RELATIVE INDEX 2.76 (< OR =4); NT-PRO BNP 920 PG/ML (<450); POTASSIUM SERUM 4.2 MEQ/L (3.5-5.1); SODIUM LEVEL 139 MEQ/L (136-145); TOTAL PROTEIN 7.2 GM/DL (6.4-8.2); TROPONIN I < 0.02 NG/ML (< 0.10); VALPROIC ACID (DEPAKOTE) 49.9 UG/ML (50.0-100.0)
[2019-08-11] MEDS ORDERED: PIPERACILLIN/TAZOBACTAM SOD 4.5 GM in D5W MINI-BAG PLUS 50 ML IV ONE (12:30)
[2019-08-11] MEDS ORDERED: NS 2,920 ML in IV 1 EA IV ONE (12:30)
--- NOTE | 2019-08-11 13:00 | REP ---
Clinical: Cough and shortness of breath. Comparison: 05/14/2019. Findings: Diffuse chronic age-related interstitial changes appreciated along with bibasilar atelectasis and small right lower lobe consolidation with air bronchograms. No effusion. Mediastinal and hilar lymph nodes are nonspecific and possibly reactive. Cardiomegaly along with atherosclerotic changes to the thoracic aorta and coronary arteries noted. No pericardial effusion. Musculoskeletal structures demonstrate degenerative changes. Impression: Bibasilar atelectasis and small right lower lobe consolidation with air bronchograms. Electronically Signed by Ramirez Koenig MD 08/11/2019 12:52 P
[2019-08-11] MEDS ORDERED: SYMB16INH INH (13:01)
[2019-08-11] MEDS ORDERED: ASPI81TA26 PO (13:01)
[2019-08-11] MEDS ORDERED: METF-791 PO (13:01)
[2019-08-11] MEDS ORDERED: FERR1TAB8 PO (13:01)
[2019-08-11] MEDS ORDERED: LEVO75TA34 PO (13:01)
[2019-08-11] MEDS ORDERED: FURO40TA2 PO (13:01)
[2019-08-11] MEDS ORDERED: OXYB10TA2 PO (13:01)
[2019-08-11] MEDS ORDERED: METO25TA4 PO (13:01)
--- NOTE | 2019-08-11 13:03 | REP ---
Clinical: Abdominal pain. Technique: Axial noncontrast images from the lung bases to the pubic symphysis with coronal and sagittal re-formations. Findings: The lung bases demonstrate bibasilar atelectasis and right lower lobe consolidation with air bronchograms. Cardiomegaly with atherosclerotic changes to the thoracic aorta and coronary arteries noted. Liver, spleen, pancreas, bilateral adrenal glands and kidneys are essentially normal for noncontrast evaluation. Gallbladder demonstrates gallstones without evidence for acute cholecystitis. The enteric system is without obstruction or acute inflammatory process. Colonic and sigmoid diverticulosis noted without acute diverticulitis. Pelvis demonstrates bladder with small layering calcifications along with mildly enlarged prostate gland demonstrating postsurgical changes. Atherosclerotic disease to the thoracic aorta and coronary arteries noted without aneurysm. Musculoskeletal structures demonstrate degenerative changes without focal abnormality. Impression: 1. No definite acute abdominopelvic pathology appreciated. 2. No ascites, adenopathy, or focal inflammatory changes. 3. Chronic findings as noted above. Electronically Signed by Ramirez Koenig MD 08/11/2019 12:55 P
[2019-08-11] MEDS ORDERED: GLUCAGON FOR INJ 1 MG VIAL (J1610) SC PRN (14:30)
[2019-08-11] MEDS ORDERED: GLUCOSE 4 GM CHEW TABLET PO PRN (14:30)
[2019-08-11] MEDS ORDERED: DEXTROSE 50% 50 ML SYRINGE IV PRN (14:30)
[2019-08-11 16:45] VITALS: BP 150/62
[2019-08-11] MEDS ORDERED: ALBUTEROL SULFATE 2.5 MG/0.5 ML INH NEB SOLN INH PRN (17:00)
[2019-08-11] MEDS: NICOTINE 14 MG/24 HR TRANSDERMAL TD SCH (17:30)
[2019-08-11] MEDS: TAMSULOSIN 0.4 MG CAP PO SCH (17:31)
[2019-08-11] MEDS: HumaLOG INSULIN (NovoLOG) PER UNIT SC SCH ×2 (17:31→20:28)
[2019-08-11] MEDS: PANTOPRAZOLE 40MG TAB (PROTONIX) PO SCH (17:31)
[2019-08-11] MEDS: IPRATROPIUM 0.5MG/ALBUTEROL 2.5MG INH SOL UD 3ML (DUONEB)(J7620) NEB SCH (19:24)
[2019-08-11] MEDS: SYMBICORT 160/4.5MCG INHALER 6GM INH SCH (19:26)
[2019-08-11 20:00] VITALS: BP 153/68
[2019-08-11] MEDS: PIPERACILLIN/TAZOBACTAM SOD 3.375 GM in D5W MINI-BAG PLUS 50 ML IV SCH (20:26)
[2019-08-11] MEDS: ENOXAPARIN 40 MG/0.4 ML SYRINGE (J1650) SC SCH (20:27)
[2019-08-11] MEDS: FLUTICASONE PROP 0.05% NASAL SPRAY 16 GM (FLONASE) NARES SCH (20:27)
--- NOTE | 2019-08-11 20:27 | ECGEPIP ---
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
[2019-08-11] MEDS: DULoxetine 20 MG CAP (CYMBALTA) PO SCH (20:28)
[2019-08-11] MEDS: ACETAMINOPHEN TAB 650MG DOSE (2X325MG) PO PRN (20:28)
[2019-08-11] MEDS: rOPINIRole 1MG TAB PO SCH (20:28)
[2019-08-11] MEDS: LISINOPRIL 5 MG TAB PO SCH (20:29)
[2019-08-11] MEDS: FERROUS SULFATE 325MG TAB PO SCH (20:29)
[2019-08-11] MEDS: DIVALPROEX 500MG *ER* TAB PO SCH (20:29)
[2019-08-11] MEDS: METOPROLOL TART 25 MG TABLET PO SCH (20:29)
[2019-08-11] MEDS: AZELASTINE 137MCG NASAL SPY 30 ML (ASTELIN) SCH (20:31)
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
[2019-08-11] MEDS ORDERED: NS 1,000 ML IV SCH (21:00)
[2019-08-11 23:59] VITALS: BP 166/78
[2019-08-12] MEDS: IPRATROPIUM 0.5MG/ALBUTEROL 2.5MG INH SOL UD 3ML (DUONEB)(J7620) NEB SCH ×4 (00:20→19:57)
[2019-08-12] MEDS: PIPERACILLIN/TAZOBACTAM SOD 3.375 GM in D5W MINI-BAG PLUS 50 ML IV SCH ×4 (01:53→20:40)
[2019-08-12 04:00] VITALS: BP 133/63
[2019-08-12 05:44] LABS: HEMATOCRIT 41.4 % (42.0-52.0); HEMOGLOBIN 13.1 g/dl (13.5-17.5); MEAN CORPUSCULAR HEMOGLOBIN 30.7 pg (27.0-33.0); MEAN CORPUSCULAR HGB CONC 31.6 g/dl (32.0-36.5); PLATELET COUNT, AUTOMATED 149 10^3/uL (150-450); RED BLOOD COUNT 4.27 10^6/uL (4.30-6.10)
[2019-08-12 06:05] LABS: HEMOGLOBIN A1c 8.1 %
[2019-08-12 06:14] LABS: BLOOD UREA NITROGEN 19 MG/DL (7-18); CALCIUM LEVEL 8.6 MG/DL (8.8-10.2); CARBON DIOXIDE LEVEL 29 MEQ/L (21-32); CHLORIDE LEVEL 108 MEQ/L (98-107); CREATININE FOR GFR 0.96 MG/DL (0.70-1.30); GLOMERULAR FILTRATION RATE > 60.0 (>35); GLUCOSE, FASTING 208 MG/DL (70-100); POTASSIUM SERUM 4.3 MEQ/L (3.5-5.1); SODIUM LEVEL 143 MEQ/L (136-145)
[2019-08-12] MEDS: LEVOTHYROXINE 75MCG TABLET (0.075MG) PO SCH (06:22)
[2019-08-12 08:00] VITALS: BP 140/70
[2019-08-12] MEDS: HumaLOG INSULIN (NovoLOG) PER UNIT SC SCH ×4 (08:34→21:00)
[2019-08-12] MEDS: DULoxetine 20 MG CAP (CYMBALTA) PO SCH ×2 (08:35→20:40)
[2019-08-12] MEDS: DIVALPROEX 500MG *ER* TAB PO SCH ×2 (08:35→20:41)
[2019-08-12] MEDS: FUROSEMIDE 20 MG TAB PO SCH (08:35)
[2019-08-12] MEDS: ASPIRIN 81 MG ENTERIC TAB PO SCH (08:35)
[2019-08-12] MEDS: FERROUS SULFATE 325MG TAB PO SCH ×2 (08:35→20:40)
[2019-08-12] MEDS: NICOTINE 14 MG/24 HR TRANSDERMAL TD SCH (08:36)
[2019-08-12] MEDS: METOPROLOL TART 25 MG TABLET PO SCH ×2 (08:36→20:41)
[2019-08-12] MEDS: AZELASTINE 137MCG NASAL SPY 30 ML (ASTELIN) SCH ×2 (08:37→20:41)
[2019-08-12] MEDS: FLUTICASONE PROP 0.05% NASAL SPRAY 16 GM (FLONASE) NARES SCH ×2 (08:37→20:42)
--- NOTE | 2019-08-12 08:37 | IPNPDOC ---
Subjective Date Seen The patient was seen on 08/12/19. Subjective Chief Complaint/HPI ARF Events since last encounter Admitted 07/16/19 for ARF/sepsis with RLL pneumonia. started on Pip/Ashu. Using baseline oxygen: 2-3 LNC. Afebrile. Patient notes significant improvement in symptoms with current treatment. has been OOB to eat. Constitutional: Denies: Chills, Fever, Night Sweats ENT: Denies: Head Aches, Ear Pain, Dysphagia Pulmonary: Reports: Dyspnea, Cough Cardiovascular: Denies: Chest Pain, Palpitations, Orthopnea, Paroxysmal Noc. Dyspnea, Lt Headedness Gastrointestinal: Denies: Nausea, Vomiting, Abdominal Pain, Diarrhea, Constipation Objective Physical Examination General Exam: Positive: Cooperative, No Acute Distress, Other (patient is hard of hearing but is wearing hearing aids) Eye Exam: Positive: Conjunctiva & lids normal, Other Eye Symptoms (no scleral injection or icterus) ENT Exam: Positive: Atraumatic, Mucous membr. moist/pink, Tongue Midline, Nares Patent Neck Exam: Positive: Supple; Negative: JVD, thyromegaly, +2 carotid pulse wo bruit, Lymphadenopathy, Other Chest Exam: Positive: Other (the patient has coarse breath sounds bilaterally, greater to the right base; additionally, he has coarse obstructive upper airway breathing pattern.) Heart Exam: Positive: Rate Normal, Regular Rhythm, Normal S1, Normal S2; Negative: Murmurs, Rubs Telemetry: Positive: No significant arrhythmia Abdomen Exam: Positive: Normal bowel sounds, Soft; Negative: Tenderness, Hepatospenomegaly Extremity Exam: Positive: Normal pulses; Negative: Edema Skin Exam: Positive: Nl turgor and temperature, Other skin issue (the patient has a basal cell carcinoma lesion to the face for which he is going to undergo excision at the end of August) Neuro Exam: Positive: Normal Speech, Cranial Nerves 3-12 NL Psych Exam: Positive: Mood NL, Other (although the patient does have some mild dementia. He was able to participate in giving some of his medical and family history.) Assessment /Plan Problems (1) Pneumonia Status: Acute Response to Treatment: Improving Problem Text: day #2 Zosyn. Improving. on baseline oxygen needs. WBC improved at 19. Afebrile. Respiratory panel negative. 08/11 BCX2 NG UCX NG. (2) Acute respiratory failure Status: Acute Response to Treatment: Improving (3) JESSIE treated with BiPAP Status: Chronic Response to Treatment: Stable (4) Congestive heart failure (CHF) Permanent Comment: EF: 60% IMPRESSION: 1. Normal global left ventricular systolic function with mild concentric left ventricular hypertrophy. Not mentioned above, the anterior septum appeared to be dyskinetic, but was dell well. 2. Mildly calcified aortic valve with trivial aortic stenosis, but no aortic regurgitation. 3. Mitral annulus calcification without any evidence of significant mitral regurgitation or mitral stenosis. The left atrium is mildly enlarged, probably related to underlying left ventricular diastolic dysfunction. 4. The study was technically limited due to poor acoustic window secondary to body habitus. DD: MÓNICA DELACRUZ MD 01/30/19 2247 DT: JOSUE 01/31/19 0642 DS: GONZALEZ 02/11/19122 <Electronically signed by MÓNICA DELACRUZ MD> 02/11/19122 Last Edited By: Trish Kyle NP on Aug 12, 2019 08:36 Status: Chronic Response to Treatment: Stable Problem Text: Received IVF due to elevated lactic acid. appears euvolemic. Will stop IVF. Tolerating po well. (5) CAD (coronary artery disease) Status: Chronic (6) Diabetes Status: Chronic (7) Dementia Status: Chronic Plan/VTE VTE Prophylaxis Ordered?: Yes (Lovenox) VS, I&O, 24H, [facility] Vital Signs/I&O Vital Signs Date Time Temp Pulse Resp B/P (MAP) Pulse Ox O2 Delivery O2 Flow Rate FiO2 08/12/19 08:00 97.7 65 18 140/70 (93) 95 Nasal Cannula 3.0 I&O- Last 24 Hours up to 6 AM 08/12/19 06:00 Intake Total 2690 ml Output Total 350 ml Balance 2340 ml Laboratory Data 24H LABS Laboratory Tests 2 08/11/19 11:16: POC pH (Misc Panel) 7.398, POC Base Excess (Misc Panel) 3.0, POC Saturated Percent O2 (Misc) 96, POC pO2 (Misc Panel) 82.0, POC pCO2 (Misc Panel) 45.9H, POC HCO3 (Misc Panel) 28.3H, POC Total CO2 (Misc Panel) 30.0H 08/11/19 11:33: Immature Granulocyte % (Auto) 1.4, Neutrophils (%) (Auto) 89.2H, Lymphocytes (%) (Auto) 4.5L, Monocytes (%) (Auto) 4.6, Eosinophils (%) (Auto) 0.0, Basophils (%) (Auto) 0.3, Neutrophils # (Auto) 19.3H, Lymphocytes # (Auto) 1.0L, Monocytes # (Auto) 1.0H, Eosinophils # (Auto) 0.0, Basophils # (Auto) 0.1, Nucleated Red Blood Cells % (auto) 0.0, Prothrombin Time 13.7, Prothromb Time International Ratio 1.08, Anion Gap 9, Glomerular Filtration Rate > 60.0, Lactic Acid Level 3.1*H, Calcium Level 8.7L, Total Bilirubin 0.5, Direct Bilirubin 0.2, Aspartate Amino Transf (AST/SGOT) 14, Alanine Aminotransferase (ALT/SGPT) 25, Alkaline Phosphatase 55, Total Creatine Kinase 76, Creatine Kinase MB 2.1, Creatine Kinase MB Relative Index 2.76, Troponin I < 0.02, TG-Kqr-[id number]-Type Natriuretic Peptide 920H, Total Protein 7.2, Albumin 3.4, Albumin/Globulin Ratio 0.89L, Thyroid Stimulating Hormone (TSH) 1.440, Valproic Acid (Depakene) Level 49.9L 08/11/19 13:50: Urine Color YELLOW, Urine Appearance CLEAR, Urine pH 7.0, Urine Specific [place] 1.017, Urine Protein 2+H, Urine Glucose (UA) NEGATIVE, Urine Ketones TRACEH, Urine Blood NEGATIVE, Urine Nitrite NEGATIVE, Urine Bilirubin NEGATIVE, Urine Urobilinogen 0.2, Urine Leukocyte Esterase 1+H, Urine WBC (Auto) 64H, Urine RBC (Auto) 5H, Urine Hyaline Casts (Auto) 0, Urine Bacteria (Auto) 1+H, Urine Squamous Epithelial Cells 0, Urine Mucus (Auto) SMALL, Urine Sperm (Auto) 08/11/19 14:55: Lactic Acid Level 3.0*H 08/11/19 17:26: Bedside Glucose (Misc Panel) 332H 08/11/19 17:45: Lactic Acid Followup at 4 Hours 3.0*H 08/11/19 20:02: Bedside Glucose (Misc Panel) 328H 08/11/19 21:06: Lactic Acid Level 3.0*H 08/12/19 01:35: Lactic Acid Followup at 4 Hours 1.9 08/12/19 05:23: Nucleated Red Blood Cells % (auto) 0.0, Anion Gap 6L, Glomerular Filtration Rate > 60.0, Estimated Mean Plasma Glucose 186H, Hemoglobin A1c 8.1, Lactic Acid Level 1.9, Calcium Level 8.6L CBC/BMP Laboratory Tests 08/11/19 11:33 08/12/19 05:23 Microbiology Microbiology 08/11/19 Urine Culture - Final, Complete 08/11/19 Blood Culture, Received Pending 08/11/19 Respiratory Virus Panel (PCR) (PAMELA) - Final, Complete 08/11/19 Blood Culture, Received Pending Trish Kyle Aug 12, 2019 08:36 Kyler Garcia M.D. Aug 12, 2019 18:53
[2019-08-12] MEDS: TAMSULOSIN 0.4 MG CAP PO SCH (08:41)
[2019-08-12] MEDS: PANTOPRAZOLE 40MG TAB (PROTONIX) PO SCH (08:41)
[2019-08-12] MEDS: oxyBUTYnin *DITROPAN XL* 5 MG TABCR PO SCH (08:41)
[2019-08-12] MEDS: rOPINIRole 1MG TAB PO SCH ×2 (08:41→20:40)
[2019-08-12] MEDS: SYMBICORT 160/4.5MCG INHALER 6GM INH SCH ×2 (09:49→19:57)
[2019-08-12] MEDS ORDERED: SLF 3 ML SYR IV PRN (10:45)
[2019-08-12 12:00] VITALS: BP 115/62
[2019-08-12] MEDS: ATORVASTATIN 20 MG TAB PO SCH (12:53)
[2019-08-12] MEDS: SITagliptin 50 MG TAB (JANUVIA) PO SCH (12:54)
[2019-08-12] MEDS: ISOSORBIDE MON. (IMDUR) 30 MG XR TAB PO SCH (12:54)
[2019-08-12] MEDS: levETIRAcetam 250MG TABLET (KEPPRA) PO SCH (12:54)
[2019-08-12] MEDS: SLF 3 ML SYR IV SCH ×2 (14:00→20:42)
[2019-08-12 16:00] VITALS: BP 134/75
[2019-08-12 20:00] VITALS: BP 148/71
[2019-08-12] MEDS: LISINOPRIL 5 MG TAB PO SCH (20:41)
[2019-08-12] MEDS: ENOXAPARIN 40 MG/0.4 ML SYRINGE (J1650) SC SCH (20:41)
[2019-08-12 23:59] VITALS: BP 150/73
[2019-08-13] MEDS: PIPERACILLIN/TAZOBACTAM SOD 3.375 GM in D5W MINI-BAG PLUS 50 ML IV SCH ×4 (01:46→20:48)
[2019-08-13] MEDS: IPRATROPIUM 0.5MG/ALBUTEROL 2.5MG INH SOL UD 3ML (DUONEB)(J7620) NEB SCH ×4 (01:55→20:00)
[2019-08-13 04:00] VITALS: BP 179/77
[2019-08-13] MEDS: SLF 3 ML SYR IV SCH ×3 (04:32→20:53)
[2019-08-13] MEDS: LEVOTHYROXINE 75MCG TABLET (0.075MG) PO SCH (05:10)
[2019-08-13 05:27] LABS: BASO # 0.1 10^3/uL (0.0-0.2); BASO % 0.4 % (0.0-1.0); EOS # 0.1 10^3/uL (0.0-0.5); EOS % 0.6 % (0.0-3.0); HEMATOCRIT 40.2 % (42.0-52.0); HEMOGLOBIN 12.7 g/dl (13.5-17.5); LYMPH # 2.6 10^3/uL (1.5-5.0); LYMPH % 14.1 % (24.0-44.0); MEAN CORPUSCULAR HEMOGLOBIN 30.2 pg (27.0-33.0); MEAN CORPUSCULAR HGB CONC 31.6 g/dl (32.0-36.5); MEAN CORPUSCULAR VOLUME 95.5 fl (80.0-96.0); MONO # 1.6 10^3/uL (0.0-0.8); NEUTROPHILS # 13.5 10^3/uL (1.5-8.5); NEUTROPHILS % 74.6 % (36.0-66.0); PLATELET COUNT, AUTOMATED 164 10^3/uL (150-450); RED BLOOD COUNT 4.21 10^6/uL (4.30-6.10); WHITE BLOOD COUNT 18.1 10^3/uL (4.0-10.0)
[2019-08-13 05:49] LABS: ALBUMIN 3.2 GM/DL (3.2-5.2); ALT/SGPT 24 U/L (12-78); BILIRUBIN,TOTAL 0.4 MG/DL (0.2-1.0); BLOOD UREA NITROGEN 19 MG/DL (7-18); CALCIUM LEVEL 8.9 MG/DL (8.8-10.2); CARBON DIOXIDE LEVEL 30 MEQ/L (21-32); CHLORIDE LEVEL 105 MEQ/L (98-107); CREATININE FOR GFR 0.99 MG/DL (0.70-1.30); GLOMERULAR FILTRATION RATE > 60.0 (>35); GLUCOSE, FASTING 195 MG/DL (70-100); SODIUM LEVEL 139 MEQ/L (136-145); TOTAL PROTEIN 7.6 GM/DL (6.4-8.2)
[2019-08-13] MEDS: DIVALPROEX 500MG *ER* TAB PO SCH ×2 (08:07→20:52)
[2019-08-13] MEDS: TAMSULOSIN 0.4 MG CAP PO SCH (08:07)
[2019-08-13] MEDS: FUROSEMIDE 20 MG TAB PO SCH (08:07)
[2019-08-13] MEDS: METOPROLOL TART 25 MG TABLET PO SCH ×2 (08:07→20:51)
[2019-08-13] MEDS: oxyBUTYnin *DITROPAN XL* 5 MG TABCR PO SCH (08:07)
[2019-08-13] MEDS: DULoxetine 20 MG CAP (CYMBALTA) PO SCH ×2 (08:08→20:51)
[2019-08-13] MEDS: ASPIRIN 81 MG ENTERIC TAB PO SCH (08:08)
[2019-08-13] MEDS: rOPINIRole 1MG TAB PO SCH ×2 (08:08→20:50)
[2019-08-13] MEDS: FERROUS SULFATE 325MG TAB PO SCH ×2 (08:08→20:51)
[2019-08-13] MEDS: PANTOPRAZOLE 40MG TAB (PROTONIX) PO SCH (08:08)
[2019-08-13] MEDS: HumaLOG INSULIN (NovoLOG) PER UNIT SC SCH ×4 (08:09→20:52)
[2019-08-13] MEDS: FLUTICASONE PROP 0.05% NASAL SPRAY 16 GM (FLONASE) NARES SCH ×2 (08:09→20:52)
[2019-08-13] MEDS: AZELASTINE 137MCG NASAL SPY 30 ML (ASTELIN) SCH ×2 (08:09→20:52)
[2019-08-13] MEDS: NICOTINE 14 MG/24 HR TRANSDERMAL TD SCH ×2 (08:10→08:26)
[2019-08-13 09:00] VITALS: BP 152/78
--- NOTE | 2019-08-13 09:23 | IPNPDOC ---
Subjective Date Seen The patient was seen on 08/13/19. Subjective Chief Complaint/HPI Pneumonia Events since last encounter had hallucinations and nightmares overnight. mood improved once nicotine patch was removed. Had patch on for 48 hrs. now fatigued and requiring 2 assist to get OOB. Has remained afebrile. General: Reports: ROS Unobtainable Objective Physical Examination General Exam: Positive: Cooperative, No Acute Distress, Other (patient is hard of hearing but is wearing hearing aids, sleeping, snoring) Eye Exam: Positive: Conjunctiva & lids normal, Other Eye Symptoms (no scleral injection or icterus) ENT Exam: Positive: Atraumatic, Mucous membr. moist/pink, Tongue Midline, Nares Patent Neck Exam: Positive: Supple; Negative: JVD, thyromegaly, +2 carotid pulse wo bruit, Lymphadenopathy, Other Chest Exam: Positive: Clear to auscultation, Other Heart Exam: Positive: Rate Normal, Regular Rhythm, Normal S1, Normal S2; Negative: Murmurs, Rubs Telemetry: Positive: No significant arrhythmia Abdomen Exam: Positive: Normal bowel sounds, Soft; Negative: Tenderness, Hepatospenomegaly Extremity Exam: Positive: Normal pulses; Negative: Edema Skin Exam: Positive: Nl turgor and temperature, Other skin issue (the patient has a basal cell carcinoma lesion to the face for which he is going to undergo excision at the end of August) Neuro Exam: Positive: Normal Speech, Cranial Nerves 3-12 NL Psych Exam: Positive: Mood NL, Other (drowsy today) Assessment /Plan Problems (1) Pneumonia Status: Acute Response to Treatment: Improving Problem Text: day #3 Zosyn. Improving. on baseline oxygen needs. WBC improved at 18. Afebrile. Respiratory panel negative. 08/11 BCX2 NG UCX NG. (2) Acute respiratory failure Status: Acute Response to Treatment: Improving (3) JESSIE treated with BiPAP Status: Chronic Response to Treatment: Stable (4) Congestive heart failure (CHF) Permanent Comment: EF: 60% IMPRESSION: 1. Normal global left ventricular systolic function with mild concentric left ventricular hypertrophy. Not mentioned above, the anterior septum appeared to be dyskinetic, but was dell well. 2. Mildly calcified aortic valve with trivial aortic stenosis, but no aortic regurgitation. 3. Mitral annulus calcification without any evidence of significant mitral regurgitation or mitral stenosis. The left atrium is mildly enlarged, probably related to underlying left ventricular diastolic dysfunction. 4. The study was technically limited due to poor acoustic window secondary to body habitus. DD: MÓNICA DELACRUZ MD 01/30/197 DT: JOSUE 01/31/19 0642 DS: GONZALZE 02/11/19122 <Electronically signed by ÓMNICA DELACRUZ MD> 02/11/19122 Last Edited By: Trish Kyle NP on Aug 12, 2019 08:36 Status: Chronic Response to Treatment: Stable Problem Text: Received IVF due to elevated lactic acid. appears euvolemic. Will stop IVF. Tolerating po well. (5) CAD (coronary artery disease) Status: Chronic (6) Diabetes Status: Chronic (7) Dementia Status: Chronic Problem Text: had confusion overnight. nicotine patch removed. monitor. Plan/VTE VTE Prophylaxis Ordered?: Yes (Lovenox) VS, I&O, 24H, [facility] Vital Signs/I&O Vital Signs Date Time Temp Pulse Resp B/P (MAP) Pulse Ox O2 Delivery O2 Flow Rate FiO2 08/13/19 09:00 98.0 80 22 152/78 (102) 95 Nasal Cannula 3.0 I&O- Last 24 Hours up to 6 AM 08/13/19 06:00 Intake Total 690 ml Output Total 100 ml Balance 590 ml Laboratory Data 24H LABS Laboratory Tests 2 08/12/19 11:47: Bedside Glucose (Misc Panel) 240H 08/12/19 16:25: Bedside Glucose (Misc Panel) 186H 08/12/19 20:49: Bedside Glucose (Misc Panel) 249H 08/13/19 05:13: Anion Gap 4L, Glomerular Filtration Rate > 60.0, Calcium Level 8.9, Total Bilirubin 0.4, Aspartate Amino Transf (AST/SGOT) 9, Alanine Aminotransferase (ALT/SGPT) 24, Alkaline Phosphatase 51, Total Protein 7.6, Albumin 3.2, Albumin/Globulin Ratio 0.73L 08/13/19 05:14: Immature Granulocyte % (Auto) 1.3, Neutrophils (%) (Auto) 74.6H, Lymphocytes (%) (Auto) 14.1L, Monocytes (%) (Auto) 9.0H, Eosinophils (%) (Auto) 0.6, Basophils (%) (Auto) 0.4, Neutrophils # (Auto) 13.5H, Lymphocytes # (Auto) 2.6, Monocytes # (Auto) 1.6H, Eosinophils # (Auto) 0.1, Basophils # (Auto) 0.1, Nucleated Red Blood Cells % (auto) 0.0 CBC/BMP Laboratory Tests 08/13/19 05:13 08/13/19 05:14 Microbiology Microbiology 08/11/19 Urine Culture - Final, Complete 08/11/19 Blood Culture - Preliminary, Resulted No growth after 24 hours . All specim... 08/11/19 Respiratory Virus Panel (PCR) (PAMELA) - Final, Complete 08/11/19 Blood Culture - Preliminary, Resulted No growth after 24 hours . All specim... Trish Kyle SATURATOR TENDER Aug 13, 2019 09:23
[2019-08-13] MEDS: SYMBICORT 160/4.5MCG INHALER 6GM INH SCH ×2 (11:59→21:00)
[2019-08-13 12:00] VITALS: BP 144/74
[2019-08-13] MEDS: ISOSORBIDE MON. (IMDUR) 30 MG XR TAB PO SCH (12:40)
[2019-08-13] MEDS: SITagliptin 50 MG TAB (JANUVIA) PO SCH (12:40)
[2019-08-13] MEDS: levETIRAcetam 250MG TABLET (KEPPRA) PO SCH (12:41)
[2019-08-13] MEDS: ATORVASTATIN 20 MG TAB PO SCH (12:41)
[2019-08-13 16:00] VITALS: BP 132/58
[2019-08-13 20:00] VITALS: BP 157/67
[2019-08-13] MEDS: ENOXAPARIN 40 MG/0.4 ML SYRINGE (J1650) SC SCH (20:48)
[2019-08-13] MEDS: LISINOPRIL 5 MG TAB PO SCH (20:51)
[2019-08-14] VITALS: BP 204/90
[2019-08-14] MEDS ORDERED: hydrALAZINE INJ 20 MG/ML VIAL IV STA (00:37)
[2019-08-14] MEDS: IPRATROPIUM 0.5MG/ALBUTEROL 2.5MG INH SOL UD 3ML (DUONEB)(J7620) NEB SCH ×4 (01:21→20:00)
[2019-08-14] MEDS: PIPERACILLIN/TAZOBACTAM SOD 3.375 GM in D5W MINI-BAG PLUS 50 ML IV SCH ×4 (01:49→20:26)
[2019-08-14 04:00] VITALS: BP 182/84
[2019-08-14] MEDS: LEVOTHYROXINE 75MCG TABLET (0.075MG) PO SCH (06:04)
[2019-08-14] MEDS: SLF 3 ML SYR IV SCH ×3 (06:05→20:30)
[2019-08-14] MEDS: SYMBICORT 160/4.5MCG INHALER 6GM INH SCH ×2 (07:25→20:33)
[2019-08-14 07:55] VITALS: BP 152/82
[2019-08-14] MEDS: DULoxetine 20 MG CAP (CYMBALTA) PO SCH ×2 (08:25→20:27)
[2019-08-14] MEDS: FERROUS SULFATE 325MG TAB PO SCH ×2 (08:25→20:27)
[2019-08-14] MEDS: ASPIRIN 81 MG ENTERIC TAB PO SCH (08:25)
[2019-08-14] MEDS: FUROSEMIDE 20 MG TAB PO SCH (08:26)
[2019-08-14] MEDS: rOPINIRole 1MG TAB PO SCH ×2 (08:26→20:27)
[2019-08-14] MEDS: PANTOPRAZOLE 40MG TAB (PROTONIX) PO SCH (08:27)
[2019-08-14] MEDS: oxyBUTYnin *DITROPAN XL* 5 MG TABCR PO SCH (08:27)
[2019-08-14] MEDS: METOPROLOL TART 25 MG TABLET PO SCH ×2 (08:27→20:27)
[2019-08-14] MEDS: TAMSULOSIN 0.4 MG CAP PO SCH (08:27)
[2019-08-14] MEDS: DIVALPROEX 500MG *ER* TAB PO SCH ×2 (08:27→20:26)
[2019-08-14] MEDS: AZELASTINE 137MCG NASAL SPY 30 ML (ASTELIN) SCH ×2 (08:28→20:28)
[2019-08-14] MEDS: FLUTICASONE PROP 0.05% NASAL SPRAY 16 GM (FLONASE) NARES SCH ×2 (08:28→20:28)
[2019-08-14] MEDS: HumaLOG INSULIN (NovoLOG) PER UNIT SC SCH ×4 (08:28→20:28)
[2019-08-14 08:35] LABS: ALBUMIN 3.1 GM/DL (3.2-5.2); ALT/SGPT 23 U/L (12-78); BILIRUBIN,TOTAL 0.6 MG/DL (0.2-1.0); BLOOD UREA NITROGEN 14 MG/DL (7-18); CALCIUM LEVEL 9.6 MG/DL (8.8-10.2); CARBON DIOXIDE LEVEL 30 MEQ/L (21-32); CHLORIDE LEVEL 103 MEQ/L (98-107); CREATININE FOR GFR 0.81 MG/DL (0.70-1.30); GLOMERULAR FILTRATION RATE > 60.0 (>35); GLUCOSE, FASTING 168 MG/DL (70-100); POTASSIUM SERUM 3.8 MEQ/L (3.5-5.1); SODIUM LEVEL 139 MEQ/L (136-145); TOTAL PROTEIN 8.1 GM/DL (6.4-8.2)
[2019-08-14 09:20] LABS: BASO # 0.1 10^3/uL (0.0-0.2); BASO % 0.4 % (0.0-1.0); EOS # 0.2 10^3/uL (0.0-0.5); EOS % 1.1 % (0.0-3.0); HEMATOCRIT 42.5 % (42.0-52.0); HEMOGLOBIN 13.5 g/dl (13.5-17.5); LYMPH % 14.7 % (24.0-44.0); MEAN CORPUSCULAR HEMOGLOBIN 30.3 pg (27.0-33.0); MEAN CORPUSCULAR HGB CONC 31.8 g/dl (32.0-36.5); MEAN CORPUSCULAR VOLUME 95.5 fl (80.0-96.0); MONO # 1.3 10^3/uL (0.0-0.8); MONO % 9.6 % (0.0-5.0); NEUTROPHILS # 9.9 10^3/uL (1.5-8.5); PLATELET COUNT, AUTOMATED 165 10^3/uL (150-450); RED BLOOD COUNT 4.45 10^6/uL (4.30-6.10); WHITE BLOOD COUNT 13.6 10^3/uL (4.0-10.0)
--- NOTE | 2019-08-14 09:50 | IPNPDOC ---
Subjective Date Seen The patient was seen on 08/14/19. Subjective Chief Complaint/HPI SOB, pneumonia Events since last encounter had hypertensive episode overnight with elevated BP of 200/100. patient was asymptomatic. Given IV Hydralazine with improvement. BP has returned to baseline this morning. Constitutional: Denies: Chills, Fever, Night Sweats Skin: Denies: Rash, Lesions, Breakdown Pulmonary: Reports: Dyspnea, Cough Cardiovascular: Denies: Chest Pain, Palpitations, Orthopnea, Paroxysmal Noc. Dyspnea, Lt Headedness Psych: Reports: Mood Normal; Denies: Depression, Memory Issues Objective Physical Examination General Exam: Positive: Cooperative, No Acute Distress, Other (patient is hard of hearing but is wearing hearing aids, sleeping, snoring) Eye Exam: Positive: Conjunctiva & lids normal, Other Eye Symptoms (no scleral injection or icterus) ENT Exam: Positive: Atraumatic, Mucous membr. moist/pink, Tongue Midline, Nares Patent Neck Exam: Positive: Supple; Negative: JVD, thyromegaly, +2 carotid pulse wo bruit, Lymphadenopathy, Other Chest Exam: Positive: Clear to auscultation, Diminished (bases) Heart Exam: Positive: Rate Normal, Regular Rhythm, Normal S1, Normal S2; Negative: Murmurs, Rubs Telemetry: Positive: No significant arrhythmia Abdomen Exam: Positive: Normal bowel sounds, Soft; Negative: Tenderness, Hepatospenomegaly Extremity Exam: Positive: Normal pulses; Negative: Edema Skin Exam: Positive: Nl turgor and temperature, Other skin issue (the patient has a basal cell carcinoma lesion to the face for which he is going to undergo excision at the end of August) Neuro Exam: Positive: Normal Speech, Cranial Nerves 3-12 NL Psych Exam: Positive: Mood NL, Other (drowsy today) Assessment /Plan Problems (1) Pneumonia Status: Acute Response to Treatment: Improving Problem Text: day #4 Zosyn. Improving. on baseline oxygen needs. WBC improved at 13.6. Afebrile. Respiratory panel negative. 08/11 BCX2 NG 10 UCX NG. (2) Acute respiratory failure Status: Acute Response to Treatment: Improving (3) JESSIE treated with BiPAP Status: Chronic Response to Treatment: Stable (4) Congestive heart failure (CHF) Permanent Comment: EF: 60% IMPRESSION: 1. Normal global left ventricular systolic function with mild concentric left ventricular hypertrophy. Not mentioned above, the anterior septum appeared to be dyskinetic, but was dell well. 2. Mildly calcified aortic valve with trivial aortic stenosis, but no aortic regurgitation. 3. Mitral annulus calcification without any evidence of significant mitral regurgitation or mitral stenosis. The left atrium is mildly enlarged, probably related to underlying left ventricular diastolic dysfunction. 4. The study was technically limited due to poor acoustic window secondary to body habitus. DD: MÓNICA DELACRUZ MD 01/30/19 2247 DT: JOSUE 01/31/1941 DS: GONZALEZ 02/11/19 012 <Electronically signed by MÓNICA DELACRUZ MD> 02/11/19122 Last Edited By: Trish Kyle NP on Aug 12, 2019 08:36 Status: Chronic Response to Treatment: Stable Problem Text: Received IVF due to elevated lactic acid. appears euvolemic. Will stop IVF. Tolerating po well. (5) CAD (coronary artery disease) Status: Chronic (6) Diabetes Status: Chronic (7) Dementia Status: Chronic Problem Text: had confusion overnight. nicotine patch removed. monitor. Plan/VTE VTE Prophylaxis Ordered?: Yes (Lovenox) Plan Family Medicine Attending Note: I saw and examined Mr. Dodson, discussed with VELVET Colunga. Agree with her note as documented. He seems to be making slow, but steady progress. His daughter reports that he is bringing up more phlegm recently and I explained why this is a good thing. Continue current treatment regimen, monitor. 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) VS, I&O, 24H, Fishbone Vital Signs/I&O Vital Signs Date Time Temp Pulse Resp B/P (MAP) Pulse Ox O2 Delivery O2 Flow Rate FiO2 08/14/19 08:27 64 152/82 08/14/19 07:55 97.5 18 94 Nasal Cannula 2.0 I&O- Last 24 Hours up to 6 AM 08/14/19 06:00 Intake Total 970 ml Output Total 175 ml Balance 795 ml Laboratory Data 24H LABS Laboratory Tests 2 08/13/19 11:55: Bedside Glucose (Misc Panel) 198H 08/13/19 17:14: Bedside Glucose (Misc Panel) 257H 08/13/19 19:55: Bedside Glucose (Misc Panel) 190H 08/14/19 07:30: Immature Granulocyte % (Auto) 1.2, Neutrophils (%) (Auto) 73.0H, Lymphocytes (%) (Auto) 14.7L, Monocytes (%) (Auto) 9.6H, Eosinophils (%) (Auto) 1.1, Basophils (%) (Auto) 0.4, Neutrophils # (Auto) 9.9H, Lymphocytes # (Auto) 2.0, Monocytes # (Auto) 1.3H, Eosinophils # (Auto) 0.2, Basophils # (Auto) 0.1, Nucleated Red Blood Cells % (auto) 0.0 08/14/19 07:37: Anion Gap 6L, Glomerular Filtration Rate > 60.0, Calcium Level 9.6, Total Bilirubin 0.6, Aspartate Amino Transf (AST/SGOT) 8, Alanine Aminotransferase (ALT/SGPT) 23, Alkaline Phosphatase 50, Total Protein 8.1, Albumin 3.1L, Albumin/Globulin Ratio 0.62L 08/14/19 08:06: Bedside Glucose (Misc Panel) 180H CBC/BMP Laboratory Tests 08/14/19 07:30 08/14/19 07:37 Microbiology Microbiology 08/11/19 Urine Culture - Final, Complete 08/11/19 Blood Culture - Preliminary, Resulted No Growth after 48 hours. All Specime... 08/11/19 Respiratory Virus Panel (PCR) ([facility]AMELA) - Final, Complete 08/11/19 Blood Culture - Preliminary, Resulted No Growth after 48 hours. All Specime... Trish Kyle Aug 14, 2019 09:50 Nathan Franco MD Aug 14, 2019 17:01
[2019-08-14 11:25] VITALS: BP 148/64
[2019-08-14] MEDS: SITagliptin 50 MG TAB (JANUVIA) PO SCH (11:27)
[2019-08-14] MEDS: levETIRAcetam 250MG TABLET (KEPPRA) PO SCH (11:27)
[2019-08-14] MEDS: ACETAMINOPHEN TAB 650MG DOSE (2X325MG) PO PRN (11:28)
[2019-08-14] MEDS: ISOSORBIDE MON. (IMDUR) 30 MG XR TAB PO SCH (11:28)
[2019-08-14] MEDS: ATORVASTATIN 20 MG TAB PO SCH (11:28)
[2019-08-14 20:00] VITALS: BP 180/70
[2019-08-14] MEDS: LISINOPRIL 5 MG TAB PO SCH (20:27)
[2019-08-14] MEDS: ENOXAPARIN 40 MG/0.4 ML SYRINGE (J1650) SC SCH (20:28)
[2019-08-15] VITALS: BP 182/84
[2019-08-15] MEDS: IPRATROPIUM 0.5MG/ALBUTEROL 2.5MG INH SOL UD 3ML (DUONEB)(J7620) NEB SCH ×2 (01:49→07:28)
[2019-08-15] MEDS: PIPERACILLIN/TAZOBACTAM SOD 3.375 GM in D5W MINI-BAG PLUS 50 ML IV SCH ×2 (02:19→09:02)
[2019-08-15 04:00] VITALS: BP 176/82
[2019-08-15 05:04] LABS: BASO # 0.1 10^3/uL (0.0-0.2); BASO % 0.8 % (0.0-1.0); EOS # 0.3 10^3/uL (0.0-0.5); EOS % 2.7 % (0.0-3.0); HEMATOCRIT 38.2 % (42.0-52.0); HEMOGLOBIN 12.3 g/dl (13.5-17.5); LYMPH # 1.8 10^3/uL (1.5-5.0); LYMPH % 17.4 % (24.0-44.0); MEAN CORPUSCULAR HEMOGLOBIN 30.2 pg (27.0-33.0); MEAN CORPUSCULAR HGB CONC 32.2 g/dl (32.0-36.5); MEAN CORPUSCULAR VOLUME 93.9 fl (80.0-96.0); MONO # 1.1 10^3/uL (0.0-0.8); MONO % 10.2 % (0.0-5.0); NEUTROPHILS # 7.1 10^3/uL (1.5-8.5); NEUTROPHILS % 67.2 % (36.0-66.0); PLATELET COUNT, AUTOMATED 177 10^3/uL (150-450); RED BLOOD COUNT 4.07 10^6/uL (4.30-6.10); WHITE BLOOD COUNT 10.6 10^3/uL (4.0-10.0)
[2019-08-15] MEDS: LEVOTHYROXINE 75MCG TABLET (0.075MG) PO SCH (05:36)
[2019-08-15] MEDS: SLF 3 ML SYR IV SCH (05:37)
[2019-08-15] MEDS: SYMBICORT 160/4.5MCG INHALER 6GM INH SCH (07:28)
[2019-08-15 08:00] VITALS: BP 138/83
[2019-08-15] MEDS ORDERED: AUGM500T34 PO (08:20)
[2019-08-15] MEDS: HumaLOG INSULIN (NovoLOG) PER UNIT SC SCH (09:01)
[2019-08-15] MEDS: FUROSEMIDE 20 MG TAB PO SCH (09:02)
[2019-08-15] MEDS: PANTOPRAZOLE 40MG TAB (PROTONIX) PO SCH (09:02)
[2019-08-15] MEDS: oxyBUTYnin *DITROPAN XL* 5 MG TABCR PO SCH (09:02)
[2019-08-15] MEDS: DULoxetine 20 MG CAP (CYMBALTA) PO SCH (09:02)
[2019-08-15] MEDS: ASPIRIN 81 MG ENTERIC TAB PO SCH (09:02)
[2019-08-15] MEDS: FERROUS SULFATE 325MG TAB PO SCH (09:02)
[2019-08-15] MEDS: TAMSULOSIN 0.4 MG CAP PO SCH (09:02)
[2019-08-15] MEDS: rOPINIRole 1MG TAB PO SCH (09:02)
[2019-08-15 09:03] VITALS: BP 138/83
[2019-08-15] MEDS: METOPROLOL TART 25 MG TABLET PO SCH (09:03)
[2019-08-15] MEDS: DIVALPROEX 500MG *ER* TAB PO SCH (09:03)
[2019-08-15] MEDS: AZELASTINE 137MCG NASAL SPY 30 ML (ASTELIN) SCH (09:04)
[2019-08-15] MEDS: FLUTICASONE PROP 0.05% NASAL SPRAY 16 GM (FLONASE) NARES SCH (09:04)
--- NOTE | 2019-08-15 19:38 | DSES ---
DATE OF ADMISSION: 08/11/2019 DATE OF DISCHARGE: 08/15/2019 PRIMARY CARE PROVIDER (PCP): Ayanna Lucio. HISTORY: This is an 84-year-old male patient of [facility] who presented to [facility] emergency room after not feeling well overnight and increased shortness of breath. He denied any fevers or chills, but did have a cough, although his family felt as though this was no more significant than usual for him. He was evaluated in the emergency room and CT was suggestive of a right basilar consolidation consistent with pneumonia. He was admitted to the hospital on intravenous (IV) Zosyn. He was felt to be septic secondary to leukocytosis and an elevated lactic acid, although he did appear to be otherwise stable. His respiratory status remains stable and has improved. His cough has improved. He has remained afebrile. His leukocytosis has steadily trended down. The patient has had a respiratory panel which was negative. Blood cultures times two have also been negative. He has been seen by physical therapy and evaluated and found safe to return home. He and his family are eager to have him return home and feel as though he is safe to do so. DISCHARGE DIAGNOSES: 1. Acute on chronic respiratory failure secondary to pneumonia. 2. Sepsis. 3. Obstructive sleep apnea with bilevel positive airway pressure (BiPAP). 4. Chronic diastolic congestive heart failure. 5. Coronary artery disease. 6. Diabetes mellitus type 2. 7. Dementia. 8. Hard of hearing. DISCHARGE MEDICATIONS: - Augmentin 500/125 one tablet by mouth three times a day times 10 days - albuterol sulfate inhaled nebulizer inhaled four times daily - aspirin 81 mg daily - atorvastatin 40 mg daily - Dymista nasal spray one spray intranasally twice daily - Symbicort 160 two puffs inhaled twice a day - Restasis 0.05 one drop each eye twice daily - Depakote ER 500 mg by mouth twice a day - Cymbalta 20 mg by mouth twice a day - ferrous sulfate 325 mg by mouth twice a day - Combivent 20/100 one puff inhaled four times daily - isosorbide mononitrate ER 30 mg by mouth daily - Keppra 1000 mg daily - Levoxyl 75 mcg daily - lisinopril 5 mg daily - metformin 500 mg twice a day - metoprolol 25 mg in the morning, 50 mg in the evening - oxybutynin 10 mg daily - Protonix 40 mg daily - ropinirole 1 mg in the morning, 2 mg in the evening - Januvia 100 mg daily - Flomax 0.4 mg daily - PreserVision one capsule by mouth twice a day DISCHARGE PLAN: Follow up with Ayanna Lucio on 08/19/2019 at 1:30 in the afternoon, as previously scheduled. His activity is as tolerated. His diet is no added salt, consistent carbohydrate.
== END 2019-08-15 11:59 | disposition home health service (06) | DRG 871 ==
LOC: M ED 09:44 → M ED INP 13:07 → M PCU 17:00
PROVIDERS: ADMIT Internal Medicine; ATTEND Family Medicine
DX: A41.9 Sepsis, unspecified organism (principal); J96.21 Acute and chronic respiratory failure with hypoxia; J18.9 Pneumonia, unspecified organism; I50.32 Chronic diastolic (congestive) heart failure; G47.33 Obstructive sleep apnea (adult) (pediatric); F03.90 Unspecified dementia, unspecified severity, without behavioral disturbance, psychotic disturbance, mood disturbance, and anxiety; E11.9 Type 2 diabetes mellitus without complications; I25.10 Atherosclerotic heart disease of native coronary artery without angina pectoris; Z79.899 Other long term (current) drug therapy; J44.9 Chronic obstructive pulmonary disease, unspecified; Z91.14 Patient's other noncompliance with medication regimen; Z85.46 Personal history of malignant neoplasm of prostate; F17.200 Nicotine dependence, unspecified, uncomplicated; Z79.82 Long term (current) use of aspirin; Z91.041 Radiographic dye allergy status; Z88.8 Allergy status to other drugs, medicaments and biological substances; Z95.1 Presence of aortocoronary bypass graft; G43.909 Migraine, unspecified, not intractable, without status migrainosus; I34.0 Nonrheumatic mitral (valve) insufficiency

== ENCOUNTER → 2019-09-08 | Outpatient (REF) | payer MEDICARE, OTHER ==
[~2019-09-08] MED LIST changes: +ASPI81TA26 PO; +AUGM500T34 PO; +FERR1TAB8 PO; +LEVO75TA34 PO; +METF-791 PO; +OXYB10TA2 PO; +SYMB16INH INH
== END ==
LOC: M LABNEURO 14:46
PROVIDERS: ATTEND Physician Assistant Medical
DX: R56.9 Unspecified convulsions (principal); E72.20 Disorder of urea cycle metabolism, unspecified

== ENCOUNTER → 2019-09-09 | Outpatient (REF) | payer MEDICARE, OTHER ==
[~2019-09-09] MED LIST changes: +AMLO10TA5 PO; -GLIM2TAB2 PO; +GLIM2TAB4 PO; -MECL-68 PO; +MECL1TAB31 PO; -OXYB10TA2 PO; +OXYB10TA23 PO; -ROPI1TAB PO; +ROPI1TAB3 PO
== END ==
LOC: M LAB REF 18:43
PROVIDERS: ATTEND Dermatology
DX: D04.30 Carcinoma in situ of skin of unspecified part of face (principal); L57.8 Other skin changes due to chronic exposure to nonionizing radiation

== ENCOUNTER 2019-09-15 10:52 | Inpatient (IN) | payer MEDICARE, OTHER ==
[~2019-09-15] VITALS: Ht 182.9 cm; Wt 89.2 kg
[~2019-09-15 10:52] MED LIST changes: -AMLO10TA5 PO; +GLIM2TAB2 PO; -GLIM2TAB4 PO; +MECL-68 PO; -MECL1TAB31 PO; +OXYB10TA2 PO; -OXYB10TA23 PO; +ROPI1TAB PO; -ROPI1TAB3 PO
--- NOTE | 2019-09-15 11:30 | REP ---
Clinical: Cough and dyspnea. Comparison: 08/11/2019. Findings: Mediastinum and cardiac silhouette are stable including cardiomegaly and evidence for prior sternotomy. Lung morrison are relatively unremarkable and without focal consolidation, effusion, or pneumothorax. Mildly prominent pulmonary vasculature and interstitial markings may be secondary to technique although subtle bronchitis versus early pulmonary vascular congestion cannot be excluded. Impression: 1. Chronic cardiomegaly and chronic pulmonary parenchymal changes. 2. No acute consolidation or effusion. Electronically Signed by Ramirez Koenig MD 09/15/2019 11:22 A
[2019-09-15 11:59] LABS: VENOUS BASE EXCESS -0.1 (-2.0-2.0); VENOUS O2 SATURATION 93.8 % (60.0-80.0); VENOUS PARTIAL PRESSURE CO2 47.9 mmHg (38.0-50.0); VENOUS PARTIAL PRESSURE O2 75.5 mmHg (30.0-50.0); VENOUS PH 7.352 UNITS (7.330-7.430); VENOUS STANDARD HCO3 24.3 MEQ/L; VENOUS TOTAL CO2 27.4 MEQ/L (24.0-28.0)
[2019-09-15 12:04] LABS: BASO # 0.1 10^3/uL (0.0-0.2); BASO % 0.4 % (0.0-1.0); EOS # 0.1 10^3/uL (0.0-0.5); EOS % 0.8 % (0.0-3.0); HEMATOCRIT 42.3 % (42.0-52.0); HEMOGLOBIN 13.6 g/dl (13.5-17.5); LYMPH # 1.1 10^3/uL (1.5-5.0); LYMPH % 8.5 % (24.0-44.0); MEAN CORPUSCULAR HEMOGLOBIN 30.4 pg (27.0-33.0); MEAN CORPUSCULAR HGB CONC 32.2 g/dl (32.0-36.5); MEAN CORPUSCULAR VOLUME 94.6 fl (80.0-96.0); MONO # 1.4 10^3/uL (0.0-0.8); MONO % 10.8 % (0.0-5.0); NEUTROPHILS % 78.3 % (36.0-66.0); PLATELET COUNT, AUTOMATED 145 10^3/uL (150-450); RED BLOOD COUNT 4.47 10^6/uL (4.30-6.10); WHITE BLOOD COUNT 12.8 10^3/uL (4.0-10.0)
[2019-09-15 12:14] LABS: INR 1.1; PROTHROMBIN TIME 13.9 SECONDS (11.8-14.0)
[2019-09-15 12:42] LABS: ALBUMIN 3.4 GM/DL (3.2-5.2); ALT/SGPT 19 U/L (12-78); BILIRUBIN,DIRECT 0.1 MG/DL (0.0-0.2); BILIRUBIN,TOTAL 0.4 MG/DL (0.2-1.0); BLOOD UREA NITROGEN 14 MG/DL (7-18); CARBON DIOXIDE LEVEL 28 MEQ/L (21-32); CHLORIDE LEVEL 103 MEQ/L (98-107); CK-MB VALUE MASS 2.4 NG/ML (<3.6); CPK CREATINE PHOSPHOKINASE 84 U/L (39-308); CREATININE FOR GFR 0.86 MG/DL (0.70-1.30); GLOMERULAR FILTRATION RATE > 60.0 (>35); GLUCOSE, FASTING 165 MG/DL (70-100); MB/CK RELATIVE INDEX 2.86 (< OR =4); NT-PRO BNP 1194 PG/ML (<450); POTASSIUM SERUM 4.1 MEQ/L (3.5-5.1); SODIUM LEVEL 142 MEQ/L (136-145); TOTAL PROTEIN 7.5 GM/DL (6.4-8.2); TROPONIN I < 0.02 NG/ML (< 0.10)
[2019-09-15 12:58] LABS: VALPROIC ACID (DEPAKOTE) 72.4 UG/ML (50.0-100.0)
[2019-09-15] MEDS: IPRATROPIUM 0.5MG/ALBUTEROL 2.5MG INH SOL UD 3ML (DUONEB)(J7620) NEB SCH ×5 (13:12→23:40)
[2019-09-15] MEDS ORDERED: methylPREDNISolone INJ 125 MG/2 ML VIAL (J2930) IV ONE (14:15)
[2019-09-15] MEDS ORDERED: LABETALOL HCL 100 MG/20 ML VIAL IV STA (14:48)
--- NOTE | 2019-09-15 14:54 | REP ---
Clinical: Shortness of breath. Technique: Axial noncontrast images from the thoracic inlet to the upper abdomen with coronal and sagittal re-formations. Comparison: 08/11/2019. Findings: Chronic emphysematous changes with bronchiectasis and scattered scarring is again appreciated. Subtle residual infiltrate/atelectasis in the right lower lobe is significantly improved when compared to prior examination. No new acute consolidation. No effusion. No pneumothorax. Tracheobronchial tree is patent. Reactive mediastinal and hilar lymph nodes are suggested and essentially unchanged. Atherosclerotic disease to the thoracic aorta and coronary arteries noted without aortic aneurysm. Mild cardiomegaly remains stable. No pericardial effusion. Musculoskeletal structures demonstrate age-related changes. Limited upper abdomen demonstrates normal bilateral adrenal glands and cholelithiasis. Impression: 1. Mild right lower lobe atelectasis/infiltrate improved compared to 08/11/2019. 2. Chronic stable changes. 3. No new acute process identified. Electronically Signed by Ramirez Koenig MD 09/15/2019 02:45 P
[2019-09-15] MEDS ORDERED: PANTOPRAZOLE 40MG TAB (PROTONIX) PO ONE (15:30)
[2019-09-15] MEDS ORDERED: SODIUM CHLORIDE NASAL 0.65% SPRAY BTL (OCEAN) PRN (15:30)
[2019-09-15] MEDS ORDERED: hydrALAZINE INJ 20 MG/ML VIAL IV PRN (15:45)
[2019-09-15] MEDS ORDERED: lisinopriL 5 MG TAB PO ONE (16:00)
[2019-09-15] MEDS ORDERED: ISOSORBIDE DIN. (ISORDIL) 30 MG TAB PO ONE (16:00)
[2019-09-15] MEDS ORDERED: METOPROLOL TART 25 MG TABLET PO ONE (16:00)
--- NOTE | 2019-09-15 17:00 | HPE ---
DATE OF ADMISSION: 09/15/2019 The patient has been signed out to Dr. Garcia. CHIEF COMPLAINT: Shortness of breath and cough. HISTORY OF PRESENT ILLNESS: 84-year-old male with a known history of chronic obstructive pulmonary disease (COPD), congestive heart failure (CHF), diastolic dysfunction, chronic home oxygen dependent with 2 liters, lives at home and was recently treated for right lower lobe pneumonia in July 2019, presents with several day history of cough productive of white, thick sputum that started Sunday night, unable to sleep well. No fever. The patient also complains of generalized weakness and a fall forward today due to severe weakness from a cough and difficulty sleeping. The patient usually goes to the diner every morning to have coffee and did not go to the diner today. The patient's made him some poached eggs and as he was walking towards to eat breakfast he went down forward on his knees because of generalized weakness. The called everyone to come and help. They then placed him in a wheelchair. They called Dr. Lucio's office to try to see if they could get him in today or tomorrow and they said that there were no openings. They told them to come straight to the emergency room. Over the past 2 days, the patient has been using his nebulizers every 4 hours, as well as inhalers with no improvement. He had an episode of nausea and vomiting on Sunday evening, no diarrhea, headaches or changes in vision. No diplopia. Denies any chest pain, pressure, tightness, lightheadedness, or dizziness prior to his fall. The gave him [employer] yesterday with no improvement. In the emergency room, he was found to have a blood pressure of 205/86. He was given IV labetalol, as well as his home medications. He currently denies any weight gain or weight loss. He usually weighs around 214 pounds. He does not weigh himself at home. Appetite has been the same, a little bit change since Sunday but not dysphagia or odynophagia. The patient denies any paresthesias, bilateral upper or lower extremities. PAST MEDICAL HISTORY: 1. COPD 2. Congestive heart failure (CHF), diastolic dysfunction. 3. Coronary artery disease, coronary artery bypass graft (CABG). 4. Spinal stenosis. 5. Migraine related seizures. 6. Dementia. 7. Chronic bowel and bladder incontinence. 8. Prostate cancer, status post radiation therapy. 9. Home oxygen dependent on 2 liters nasal cannula. 10. Peripheral vascular disease. 11. Hearing loss. 12. Diabetes. 13. Obstructive sleep apnea. 14. Fatty liver disease. PAST SURGICAL HISTORY: 1. CABG times three vessels. 2. Carotid endarterectomy. 3. Back surgery. 4. Bilateral arthroscopic knee surgery. 5. Hernia repair. 6. Appendectomy. 7. Stent placed into lower extremities. ALLERGIES: CONTRAST MEDIA, CEFUROXIME causing rash, RED DYE, CIPROFLOXACIN causing confusion. FAMILY HISTORY: Noncontributory due to age, but he has a history of diabetes, heart disease. Brother with nonalcoholic steatohepatitis (GUAMAN) and melanoma. SOCIAL HISTORY: He still smokes cigarettes up to 1-1/2 packs per day and he has burned his clothing prior. He sleeps on a hospital bed. He lives at home. 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 HOME MEDICATIONS: - albuterol 2.5 mg four times a day as needed - aspirin 81 mg daily - atorvastatin 40 mg daily - Symbicort two puffs twice a day - Depakote 500 mg twice a day - duloxetine 20 mg twice a day - ferrous sulfate 325 mg twice a day - Lasix 20 mg at night - Combivent one puff four times a day as needed - isosorbide 30 mg daily - levothyroxine 75 mcg daily - Lisinopril 5 mg at night - metformin 500 mg twice a day - metoprolol 25 mg twice a day - oxybutynin 10 mg daily - Protonix 40 mg daily - ropinirole 1 mg in the morning and 2 mg at night - Januvia 100 mg daily - Flomax 0.4 mg daily - nasal spray twice a day - Restasis OU twice a day - PreserVision one tablet by mouth twice a day REVIEW OF SYSTEMS: As per history of present illness. 12-point system negative. PHYSICAL EXAMINATION: VITAL SIGNS: Temperature 96.3, pulse 85, respiratory rate 20, blood pressure 220/88, 96% on 2 liters nasal cannula. GENERAL: Awake, alert, oriented to person and place. Able to respond. Anicteric sclerae. No jaundice. Pupils are round and reactive. Extraocular muscles are intact. Dry mucous membranes. Poor dentition. No jugular venous distention (JVD) or thyromegaly. LUNGS: Diminished. Bilateral wheezing. Prolonged expiration. ABDOMEN: Soft, nontender, nondistended. EXTREMITIES: Trace edema bilaterally. Chronic venous stasis changes. Electrocardiogram (EKG) showed sinus rhythm, ventricular rate of 75, first degree AV block, age indeterminate. LABORATORY DATA: White count 12.8, hemoglobin 13.6, hematocrit 42, platelet count 145. Sodium 142, potassium 4.1, chloride 103, bicarbonate 28, BUN 14, creatinine 0.86, glucose 165, lactic acid 2.9. BNP 1194. CT of the chest showed right lower lobe consolidation, improved. IMPRESSION: 84-year-old male who presented with worsening shortness of breath and found to have respiratory syncytial virus (RSV), chronic obstructive pulmonary disease (COPD) exacerbation, hypertensive urgency. CURRENT ISSUES: 1. Hypertensive urgency. The patient has been given labetalol stat 10 mg. Continued on hydralazine, isosorbide, Lisinopril, metoprolol. CT of the head to rule out intracranial hemorrhage. 2. COPD exacerbation. IV Solu-Medrol, nebulizer treatments every 4 hours. 3. Respiratory syncytial virus (RSV). Isolation precautions. 4. History of coronary artery disease and coronary artery bypass graft (CABG) in the past. Continued on aspirin. 5. Type 2 diabetes. On insulin sliding scale and consistent carbohydrate diet. 6. Hypothyroidism. On chronic Synthroid. 7. Dyslipidemia. On Lipitor. 8. History of migraines and history of seizure disorder. On chronic Depakote. 9. History of prostate cancer. On chronic Flomax. 10. Deep vein thrombosis (DVT) prophylaxis. Compression stockings. [facility]
--- NOTE | 2019-09-15 17:34 | REPVR ---
PROCEDURE INFORMATION: Exam: CT Head Without Contrast Exam date and time: 09/15/2019 5:23 PM Age: 84 years old Clinical history: Pain; Headache; Additional info: HTN urgency [id number] R/O ich TECHNIQUE: Imaging protocol: Computed tomography of the head without contrast. Radiation optimization: All CT scans at this facility use at least one of these dose optimization techniques: automated exposure control; mA and/or kV adjustment per patient size (includes targeted exams where dose is matched to clinical indication); or iterative reconstruction. COMPARISON: CT Head without contrast 03/07/2016 12:23 AM FINDINGS: Brain: There is no acute cortical infarction, intracranial hemorrhage or mass.There is mild diffuse heterogeneity of the white matter attenuation, consistent with chronic white matter ischemic changes. Ventricles: The ventricles appear enlarged, but not out of proportion to the degree of parenchymal volume loss. Bones/joints: Unremarkable. No acute fracture. Sinuses: No air-fluid levels in the paranasal sinuses. Mastoid air cells: The middle ear cavities and mastoid air cells are clear. Soft tissues: Unremarkable. Vasculature: Atherosclerosis. IMPRESSION: No acute intracranial findings. Electronically signed by: Enma Miranda On 09/15/2019 17:34:07 PM
--- NOTE | 2019-09-15 17:35 | ECGEPIP ---
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
[2019-09-15 18:05] VITALS: BP 200/98
[2019-09-15] MEDS ORDERED: SLF 3 ML SYR IV PRN (18:15)
[2019-09-15] MEDS: NITROGLYCERIN 2% OINT 1 GM *U/D* PKT TOP SCH ×2 (18:57→23:58)
[2019-09-15] MEDS: SYMBICORT 160/4.5MCG INHALER 6GM INH SCH (19:44)
[2019-09-15 20:00] VITALS: BP 186/82
[2019-09-15] MEDS: DIVALPROEX 500MG *ER* TAB PO SCH (20:19)
[2019-09-15] MEDS: SODIUM CHLORIDE 0.9% NASAL GEL 15GM (AYR) SCH (20:19)
[2019-09-15] MEDS: FERROUS SULFATE 325MG TAB PO SCH (20:20)
[2019-09-15] MEDS: DULoxetine 20 MG CAP (CYMBALTA) PO SCH (20:20)
[2019-09-15] MEDS: FUROSEMIDE 20 MG TAB PO SCH (20:20)
[2019-09-15] MEDS: rOPINIRole 1MG TAB PO SCH (20:20)
[2019-09-15 20:21] VITALS: BP 170/62
[2019-09-15] MEDS ORDERED: RESTASIS OPTHALMIC OU SCH (21:00)
[2019-09-15] MEDS ORDERED: FERROUS SULFATE 300MG/5ML UDC LIQUID PO SCH (21:00)
[2019-09-15] MEDS: PIPERACILLIN/TAZOBACTAM SOD 2.25 GM in D5W MINI-BAG PLUS 50 ML IV SCH (22:27)
[2019-09-15] MEDS: SLF 3 ML SYR IV SCH (22:28)
[2019-09-16] VITALS (10 sets, daily range): BP systolic 140–190; BP diastolic 64–98
[2019-09-16] MEDS: methylPREDNISolone INJ 125 MG/2 ML VIAL (J2930) IV SCH ×3 (00:03→14:49)
[2019-09-16] MEDS: PIPERACILLIN/TAZOBACTAM SOD 2.25 GM in D5W MINI-BAG PLUS 50 ML IV SCH ×4 (03:08→21:37)
[2019-09-16] MEDS: IPRATROPIUM 0.5MG/ALBUTEROL 2.5MG INH SOL UD 3ML (DUONEB)(J7620) NEB SCH ×6 (04:03→23:15)
[2019-09-16] MEDS: LEVOTHYROXINE 75MCG TABLET (0.075MG) PO SCH (05:08)
[2019-09-16] MEDS: NITROGLYCERIN 2% OINT 1 GM *U/D* PKT TOP SCH ×2 (05:08→12:55)
[2019-09-16] MEDS: SLF 3 ML SYR IV SCH ×3 (05:09→21:40)
[2019-09-16] MEDS: SYMBICORT 160/4.5MCG INHALER 6GM INH SCH ×2 (07:13→19:45)
[2019-09-16] MEDS ORDERED: PREVNAR 13 VACCINE SYRINGE (CPT CODE:90670) IM ONE (09:00)
[2019-09-16] MEDS: DULoxetine 20 MG CAP (CYMBALTA) PO SCH ×2 (09:55→21:56)
[2019-09-16] MEDS: FERROUS SULFATE 325MG TAB PO SCH ×2 (09:55→21:39)
[2019-09-16] MEDS: rOPINIRole 1MG TAB PO SCH ×2 (09:55→21:38)
[2019-09-16] MEDS: METOPROLOL TART 25 MG TABLET PO SCH ×2 (09:56→21:39)
[2019-09-16] MEDS: TAMSULOSIN 0.4 MG CAP PO SCH (09:57)
[2019-09-16] MEDS: DIVALPROEX 500MG *ER* TAB PO SCH ×2 (09:58→21:38)
[2019-09-16] MEDS: ASPIRIN 81 MG CHEW TABLET PO SCH (09:58)
[2019-09-16] MEDS: LACTOBACILLUS ACIDOPHILUS CAP (BACID) PO SCH ×2 (09:58→16:23)
[2019-09-16] MEDS: SODIUM CHLORIDE 0.9% NASAL GEL 15GM (AYR) SCH ×4 (09:59→21:37)
[2019-09-16] MEDS: ATORVASTATIN 20 MG TAB PO SCH (12:55)
[2019-09-16] MEDS: SITagliptin 50 MG TAB (JANUVIA) PO SCH (12:55)
[2019-09-16] MEDS ORDERED: lisinopriL 5 MG TAB PO ONE (14:00)
--- NOTE | 2019-09-16 14:35 | IPN ---
DATE: 09/16/2019 Roge is seen in progressive care unit (PCU). He was admitted with exacerbation of chronic obstructive pulmonary disease (COPD) secondary to RSV, bacterial pneumonia is still possible. Sputum culture is pending. He is being covered with antibiotic. His blood pressure was elevated on admission, probably from the COPD exacerbation, it has come down since then. Overall, he feels better. He is asking to go home, but I do not think that he is anywhere near ready for that yet. PHYSICAL EXAMINATION: Afebrile at 148/98, oxygen saturation 93% on 3 liters. He is alert, conversant and in no distress. LUNGS: Few wheezes at the bases. HEART: Regular rhythm. ABDOMEN: Soft, nontender. EXTREMITIES: No peripheral edema. LABORATORIES: Unfortunately, he had no lab work ordered for today. IMPRESSION: 1. Chronic obstructive pulmonary disease (COPD) exacerbation, probably from RSV. Continue Zosyn for now until sputum culture comes back. If it is negative, we will stop the antibiotic. Continue nebulized bronchodilator and IV Solu-Medrol. We are reducing the dose of the Solu-Medrol to 40 mg every 12 hours. 2. Hypertension. I think his elevated blood pressure is probably related to COPD exacerbation. He is being rather aggressively treated right now and IV hydralazine, oral and topical nitrite, in addition to Lisinopril and metoprolol. We will increase the dose of the Lisinopril and stop the topical nitrates, stop the hydralazine. 3. Spinal stenosis. Continue his current regimen. 4. Diabetes. Restart his metformin. Continue sliding scale insulin with coverage.
[2019-09-16] MEDS: levETIRAcetam 250MG TABLET (KEPPRA) PO SCH (14:49)
[2019-09-16] MEDS: metFORMIN XR 500MG TAB *GLUCOPHAGE XR PO SCH (16:23)
[2019-09-16] MEDS ORDERED: GLUCAGON FOR INJ 1 MG VIAL (J1610) SC PRN (20:00)
[2019-09-16] MEDS ORDERED: GLUCOSE 4 GM CHEW TABLET PO PRN (20:00)
[2019-09-16] MEDS ORDERED: DEXTROSE 50% 50 ML SYRINGE IV PRN (20:00)
[2019-09-16] MEDS ORDERED: lisinopriL 5 MG TAB PO SCH (21:00)
[2019-09-16] MEDS: HumaLOG INSULIN (NovoLOG) PER UNIT SC SCH (21:38)
[2019-09-16] MEDS: FUROSEMIDE 20 MG TAB PO SCH (21:39)
[2019-09-16] MEDS: lisinopriL 5 MG TAB PO SCH (21:39)
[2019-09-17 00:55] VITALS: BP 178/80
[2019-09-17] MEDS: methylPREDNISolone INJ 125 MG/2 ML VIAL (J2930) IV SCH (01:16)
[2019-09-17] MEDS: IPRATROPIUM 0.5MG/ALBUTEROL 2.5MG INH SOL UD 3ML (DUONEB)(J7620) NEB SCH ×6 (02:38→22:28)
[2019-09-17] MEDS: PIPERACILLIN/TAZOBACTAM SOD 2.25 GM in D5W MINI-BAG PLUS 50 ML IV SCH ×2 (03:19→10:30)
[2019-09-17 04:00] VITALS: BP 168/82
[2019-09-17] MEDS: LEVOTHYROXINE 75MCG TABLET (0.075MG) PO SCH (05:18)
[2019-09-17] MEDS: SLF 3 ML SYR IV SCH ×3 (05:19→22:00)
[2019-09-17 06:22] LABS: BASO % 0.2 % (0.0-1.0); LYMPH % 5.5 % (24.0-44.0); MEAN CORPUSCULAR HEMOGLOBIN 29.7 pg (27.0-33.0); MEAN CORPUSCULAR HGB CONC 31.1 g/dl (32.0-36.5); MEAN CORPUSCULAR VOLUME 95.3 fl (80.0-96.0); MONO # 0.9 10^3/uL (0.0-0.8); MONO % 4.8 % (0.0-5.0); NEUTROPHILS # 15.8 10^3/uL (1.5-8.5); NEUTROPHILS % 88.4 % (36.0-66.0); PLATELET COUNT, AUTOMATED 152 10^3/uL (150-450); RED BLOOD COUNT 4.72 10^6/uL (4.30-6.10); WHITE BLOOD COUNT 17.9 10^3/uL (4.0-10.0)
[2019-09-17 06:40] LABS: BLOOD UREA NITROGEN 21 MG/DL (7-18); CALCIUM LEVEL 9.2 MG/DL (8.8-10.2); CARBON DIOXIDE LEVEL 32 MEQ/L (21-32); CHLORIDE LEVEL 97 MEQ/L (98-107); CREATININE FOR GFR 1.03 MG/DL (0.70-1.30); GLOMERULAR FILTRATION RATE > 60.0 (>35); GLUCOSE, FASTING 245 MG/DL (70-100); POTASSIUM SERUM 4.2 MEQ/L (3.5-5.1); SODIUM LEVEL 136 MEQ/L (136-145)
[2019-09-17] MEDS: SYMBICORT 160/4.5MCG INHALER 6GM INH SCH ×2 (07:04→19:44)
[2019-09-17 08:00] VITALS: BP 170/84
[2019-09-17] MEDS: DIVALPROEX 500MG *ER* TAB PO SCH ×2 (09:05→22:01)
[2019-09-17] MEDS: rOPINIRole 1MG TAB PO SCH ×2 (09:05→22:01)
[2019-09-17] MEDS: HumaLOG INSULIN (NovoLOG) PER UNIT SC SCH ×4 (09:05→20:05)
[2019-09-17] MEDS: LACTOBACILLUS ACIDOPHILUS CAP (BACID) PO SCH ×2 (09:05→18:14)
[2019-09-17] MEDS: metFORMIN XR 500MG TAB *GLUCOPHAGE XR PO SCH ×2 (09:06→18:14)
[2019-09-17] MEDS: lisinopriL 5 MG TAB PO SCH ×2 (09:06→22:09)
[2019-09-17] MEDS: TAMSULOSIN 0.4 MG CAP PO SCH (09:07)
[2019-09-17] MEDS: METOPROLOL TART 25 MG TABLET PO SCH ×2 (09:07→22:08)
[2019-09-17] MEDS: FERROUS SULFATE 325MG TAB PO SCH ×2 (09:07→22:09)
[2019-09-17] MEDS: ASPIRIN 81 MG CHEW TABLET PO SCH (09:07)
[2019-09-17] MEDS: DULoxetine 20 MG CAP (CYMBALTA) PO SCH ×2 (09:08→22:08)
[2019-09-17] MEDS: SODIUM CHLORIDE 0.9% NASAL GEL 15GM (AYR) SCH ×4 (09:10→22:09)
--- NOTE | 2019-09-17 11:13 | IPNPDOC ---
Subjective Date Seen The patient was seen on 09/17/19. Subjective Chief Complaint/HPI HTN urgency Events since last encounter and daughter at bedside. noting some delirium. notes that his delirium usually occurs with abx use. Patient tolerated Pip/cholo during last admission. notes improvement in cough. Constitutional: Denies: Chills, Fever, Night Sweats Pulmonary: Reports: Dyspnea, Cough Cardiovascular: Denies: Chest Pain, Palpitations, Orthopnea, Paroxysmal Noc. Dyspnea, Lt Headedness Gastrointestinal: Denies: Nausea, Vomiting, Abdominal Pain, Diarrhea, Constipation Genitourinary: Denies: Dysuria, Frequency, Incontinence, Retention Psych: Reports: Memory Issues Objective Physical Examination General Exam: Positive: Alert, No Acute Distress Chest Exam: Positive: Clear to auscultation, Normal air movement, Wheezing Heart Exam: Positive: Rate Normal, Regular Rhythm, Normal S1, Normal S2; Negative: Murmurs, Rubs Telemetry: Positive: No significant arrhythmia Abdomen Exam: Positive: Normal bowel sounds, Soft; Negative: Tenderness, Hepatospenomegaly Psych Exam: Positive: Mental status NL, Mood NL, Oriented x 3 Assessment /Plan Problems (1) RSV (respiratory syncytial virus infection) Status: Acute Response to Treatment: Improving (2) COPD exacerbation Status: Acute Response to Treatment: Improving Problem Text: decreased steroid to po prednisone 40 mg po daily. DC Zosyn due to delirium. Procalcitonin ordered. Sputum cx remains pending. (3) Hypertensive urgency Status: Acute Response to Treatment: Improving (4) Congestive heart failure (CHF) Permanent Comment: EF: 60% IMPRESSION: 1. Normal global left ventricular systolic function with mild concentric left ventricular hypertrophy. Not mentioned above, the anterior septum appeared to be dyskinetic, but was dell well. 2. Mildly calcified aortic valve with trivial aortic stenosis, but no aortic regurgitation. 3. Mitral annulus calcification without any evidence of significant mitral regurgitation or mitral stenosis. The left atrium is mildly enlarged, probably related to underlying left ventricular diastolic dysfunction. 4. The study was technically limited due to poor acoustic window secondary to body habitus. DD: MÓNICA DELACRUZ MD 01/30/19 2247 DT: JOSUE 01/31/19 0642 DS: GONZALEZ 02/11/19122 <Electronically signed by MÓNICA DELACRUZ MD> 02/11/19122 Last Edited By: Trish Kyle NP on Aug 12, 2019 08:36 Status: Chronic Plan/VTE VTE Prophylaxis Ordered?: Yes VS, I&O, 24H, Fishbone Vital Signs/I&O Vital Signs Date Time Temp Pulse Resp B/P (MAP) Pulse Ox O2 Delivery O2 Flow Rate FiO2 09/17/19 09:07 72 170/84 09/17/19 08:00 97.4 22 90 Nasal Cannula 3.0 I&O- Last 24 Hours up to 6 AM 09/17/19 06:00 Intake Total 1330 ml Output Total 3 ml Balance 1327 ml Laboratory Data 24H LABS Laboratory Tests 2 09/16/19 20:10: Bedside Glucose (Misc Panel) 302H 09/17/19 06:09: Immature Granulocyte % (Auto) 1.1, Neutrophils (%) (Auto) 88.4H, Lymphocytes (%) (Auto) 5.5L, Monocytes (%) (Auto) 4.8, Eosinophils (%) (Auto) 0.0, Basophils (%) (Auto) 0.2, Neutrophils # (Auto) 15.8H, Lymphocytes # (Auto) 1.0L, Monocytes # (Auto) 0.9H, Eosinophils # (Auto) 0.0, Basophils # (Auto) 0.0, Nucleated Red Blood Cells % (auto) 0.0, Anion Gap 7L, Glomerular Filtration Rate > 60.0, Calcium Level 9.2 CBC/BMP Laboratory Tests 09/17/19 06:09 Microbiology Microbiology 09/16/19 Gram Stain - Final, Resulted 09/16/19 Sputum Culture, Resulted Pending 09/15/19 Blood Culture - Preliminary, Resulted No growth after 24 hours . All specim... 09/15/19 Respiratory Virus Panel (PCR) ([facility]AMELA) - Final, Complete Respiratory Syncytial Virus 09/15/19 Blood Culture - Preliminary, Resulted No growth after 24 hours . All specim... Trish KyleP Sep 17, 2019 11:13
[2019-09-17 12:00] VITALS: BP 115/65
[2019-09-17] MEDS: ATORVASTATIN 20 MG TAB PO SCH (12:43)
[2019-09-17] MEDS: SITagliptin 50 MG TAB (JANUVIA) PO SCH (12:43)
[2019-09-17] MEDS: levETIRAcetam 250MG TABLET (KEPPRA) PO SCH (12:43)
[2019-09-17 16:00] VITALS: BP 148/58
[2019-09-17 21:30] VITALS: BP 180/82
[2019-09-17] MEDS: FUROSEMIDE 20 MG TAB PO SCH (22:09)
[2019-09-18 01:13] VITALS: BP 210/98
[2019-09-18] MEDS: IPRATROPIUM 0.5MG/ALBUTEROL 2.5MG INH SOL UD 3ML (DUONEB)(J7620) NEB SCH ×6 (03:28→23:20)
[2019-09-18 04:00] VITALS: BP 190/98
[2019-09-18 05:39] LABS: BASO # 0.1 10^3/uL (0.0-0.2); BASO % 0.6 % (0.0-1.0); EOS % 0.2 % (0.0-3.0); HEMOGLOBIN 14.8 g/dl (13.5-17.5); LYMPH # 1.7 10^3/uL (1.5-5.0); LYMPH % 11.6 % (24.0-44.0); MEAN CORPUSCULAR HEMOGLOBIN 29.8 pg (27.0-33.0); MEAN CORPUSCULAR HGB CONC 32.2 g/dl (32.0-36.5); MEAN CORPUSCULAR VOLUME 92.7 fl (80.0-96.0); MONO # 1.9 10^3/uL (0.0-0.8); MONO % 13.3 % (0.0-5.0); NEUTROPHILS # 10.4 10^3/uL (1.5-8.5); NEUTROPHILS % 72.8 % (36.0-66.0); PLATELET COUNT, AUTOMATED 166 10^3/uL (150-450); RED BLOOD COUNT 4.96 10^6/uL (4.30-6.10); WHITE BLOOD COUNT 14.2 10^3/uL (4.0-10.0)
[2019-09-18 06:07] LABS: BLOOD UREA NITROGEN 24 MG/DL (7-18); CALCIUM LEVEL 9.1 MG/DL (8.8-10.2); CARBON DIOXIDE LEVEL 32 MEQ/L (21-32); CHLORIDE LEVEL 96 MEQ/L (98-107); CREATININE FOR GFR 0.97 MG/DL (0.70-1.30); GLOMERULAR FILTRATION RATE > 60.0 (>35); GLUCOSE, FASTING 198 MG/DL (70-100); POTASSIUM SERUM 4.4 MEQ/L (3.5-5.1); SODIUM LEVEL 135 MEQ/L (136-145)
[2019-09-18] MEDS: SLF 3 ML SYR IV SCH ×3 (06:07→20:53)
[2019-09-18] MEDS: LEVOTHYROXINE 75MCG TABLET (0.075MG) PO SCH (06:07)
[2019-09-18] MEDS: HumaLOG INSULIN (NovoLOG) PER UNIT SC SCH ×4 (07:30→20:47)
[2019-09-18] MEDS: SYMBICORT 160/4.5MCG INHALER 6GM INH SCH ×2 (07:56→20:21)
[2019-09-18 08:00] VITALS: BP 194/91
[2019-09-18] MEDS: LACTOBACILLUS ACIDOPHILUS CAP (BACID) PO SCH ×2 (09:33→17:10)
[2019-09-18] MEDS: TAMSULOSIN 0.4 MG CAP PO SCH (09:33)
[2019-09-18] MEDS: FERROUS SULFATE 325MG TAB PO SCH ×2 (09:34→20:46)
[2019-09-18] MEDS: metFORMIN XR 500MG TAB *GLUCOPHAGE XR PO SCH ×2 (09:34→17:10)
[2019-09-18] MEDS: lisinopriL 10 MG TAB PO SCH ×2 (09:34→20:46)
[2019-09-18] MEDS: predniSONE 20 MG TAB PO SCH (09:34)
[2019-09-18] MEDS: METOPROLOL TART 25 MG TABLET PO SCH ×2 (09:35→20:48)
[2019-09-18] MEDS: ASPIRIN 81 MG CHEW TABLET PO SCH (09:35)
[2019-09-18] MEDS: rOPINIRole 1MG TAB PO SCH ×2 (09:35→20:46)
[2019-09-18] MEDS: DIVALPROEX 500MG *ER* TAB PO SCH ×2 (09:35→20:46)
[2019-09-18] MEDS: DULoxetine 20 MG CAP (CYMBALTA) PO SCH ×2 (09:35→20:46)
[2019-09-18] MEDS: SODIUM CHLORIDE 0.9% NASAL GEL 15GM (AYR) SCH ×4 (09:38→20:51)
--- NOTE | 2019-09-18 10:25 | IPNPDOC ---
Subjective Date Seen The patient was seen on 09/18/19. 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 When I went into see him he was awake, alert and oriented. His dgt was talking to him and he told her he wasn't ready to stop fighting. He was joking with a friend who was visiting. He denies pain, SOB. ENT: Denies: Head Aches Pulmonary: Denies: Dyspnea, Cough Cardiovascular: Denies: Chest Pain, Palpitations Gastrointestinal: Denies: Abdominal Pain Neurological: Reports: Weakness Objective Physical Examination General Exam: Positive: Alert, No Acute Distress ENT Exam: Positive: Mucous membr. moist/pink Chest Exam: Positive: Wheezing (faint end exp wheezes), Diminished; Negative: Clear to auscultation, Normal air movement Heart Exam: Positive: Rate Normal, Regular Rhythm, Normal S1, Normal S2; Negative: Murmurs, Rubs Telemetry: Positive: No significant arrhythmia Abdomen Exam: Positive: Normal bowel sounds, Soft; Negative: Tenderness, Hepatospenomegaly Extremity Exam: Negative: Edema Neuro Exam: Positive: Normal Speech Psych Exam: Positive: Mental status NL, Mood NL, Oriented x 3 Assessment /Plan Problems (1) COPD exacerbation Status: Acute Response to Treatment: Improving Problem Text: 09/18 changed from SM to PO pred 40 mg to be given today. Procalcitonin level pending. Sputum culture + pseudomonas, yeast, will address with attending treatment, given pt appears to have had clinical improvement and WBC has trended down, Pseudomonas at least is likely colonization (few on culture), yeast was heavy. 09/17 decreased steroid to po prednisone 40 mg po daily. DC Zosyn due to delirium. Procalcitonin ordered. Sputum cx remains pending. (2) RSV (respiratory syncytial virus infection) Status: Acute Response to Treatment: Improving (3) Hypertensive urgency Status: Acute Response to Treatment: Improving Problem Text: Pressure remain elevated, lisinopril increase yest from 5 mg BID to 10 mG BID, will add Amlodipine this morning. (4) Congestive heart failure (CHF) Permanent Comment: EF: 60% IMPRESSION: 1. Normal global left ventricular systolic function with mild concentric left ventricular hypertrophy. Not mentioned above, the anterior septum appeared to be dyskinetic, but was dell well. 2. Mildly calcified aortic valve with trivial aortic stenosis, but no aortic regurgitation. 3. Mitral annulus calcification without any evidence of significant mitral regurgitation or mitral stenosis. The left atrium is mildly enlarged, probably related to underlying left ventricular diastolic dysfunction. 4. The study was technically limited due to poor acoustic window secondary to body habitus. 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 Will consult Hospice. They feel they are not able to care for him at home, but also do not want him in a NH. VS, I&O, 24H, [place] Vital Signs/I&O Vital Signs Date Time Temp Pulse Resp B/P (MAP) Pulse Ox O2 Delivery O2 Flow Rate FiO2 09/18/19 09:35 74 194/91 09/18/19 08:00 97.0 22 93 NIPPV (BIPAP/CPAP) 4.0 I&O- Last 24 Hours up to 6 AM 09/18/19 06:00 Intake Total 840 ml Output Total 425 ml Balance 415 ml Laboratory Data 24H LABS Laboratory Tests 2 09/17/19 11:54: Bedside Glucose (Misc Panel) 214H 09/17/19 17:02: Bedside Glucose (Misc Panel) 192H 09/17/19 19:56: Bedside Glucose (Misc Panel) 248H 09/18/19 05:21: Immature Granulocyte % (Auto) 1.5, Neutrophils (%) (Auto) 72.8H, Lymphocytes (%) (Auto) 11.6L, Monocytes (%) (Auto) 13.3H, Eosinophils (%) (Auto) 0.2, Basophils (%) (Auto) 0.6, Neutrophils # (Auto) 10.4H, Lymphocytes # (Auto) 1.7, Monocytes # (Auto) 1.9H, Eosinophils # (Auto) 0.0, Basophils # (Auto) 0.1, Nucleated Red Blood Cells % (auto) 0.0, Anion Gap 7L, Glomerular Filtration Rate > 60.0, Calcium Level 9.1 CBC/BMP Laboratory Tests 09/18/19 05:21 Microbiology Microbiology 09/16/19 Gram Stain - Final, Complete 09/16/19 Sputum Culture - Final, Complete Pseudomonas Aeruginosa Yeast Like Organism 09/15/19 Blood Culture - Preliminary, Resulted No Growth after 48 hours. All Specime... 09/15/19 Respiratory Virus Panel (PCR) (PAMELA) - Final, Complete Respiratory Syncytial Virus 09/15/19 Blood Culture - Preliminary, Resulted No Growth after 48 hours. All Specime... JACKELYN RAMIRES PA-C Sep 18, 2019 10:25
[2019-09-18] MEDS: SITagliptin 50 MG TAB (JANUVIA) PO SCH (12:19)
[2019-09-18] MEDS: amLODIPine 5 MG TAB PO SCH (12:19)
[2019-09-18] MEDS: ATORVASTATIN 20 MG TAB PO SCH (12:20)
[2019-09-18] MEDS: levETIRAcetam 250MG TABLET (KEPPRA) PO SCH (12:20)
[2019-09-18 13:00] VITALS: BP 168/86
[2019-09-18 16:00] VITALS: BP 186/82
--- NOTE | 2019-09-18 17:27 | IPN ---
DATE: 09/18/2019 Had a family conference today that was attended by Roge's Dia, two daughters, and a son. He was barely responsive this morning. I think primarily because he was fatigued from a restless evening. When I went to see him this afternoon, he was alert, conversant and recognized me immediately. He has certainly declined over the last year with recurrent pulmonary infections and exacerbations of chronic obstructive pulmonary disease (COPD). He has severe spinal stenosis has left him bed-bound, incontinent of stool and urine. He has a medical order of life-sustaining treatment (MOLST) form from 10/16/2013 which is DO NOT RESUSCITATE (DNR), TRIAL OF NONINVASIVE VENTILATION, NO TUBE FEEDINGS. Also NO IV FLUIDS. After a long discussion, the family requested they discussed with the patient, going on Hospice. They do not feel they can take care of him in their home with the hospice care and are requesting hospice residence. Hospice consult has been placed and we are waiting for them to come see Roge. Will have further discussions tomorrow on rounds.
[2019-09-18 20:00] VITALS: BP 130/60
[2019-09-18] MEDS: FUROSEMIDE 20 MG TAB PO SCH (20:47)
[2019-09-19] VITALS: BP 150/60
[2019-09-19 04:00] VITALS: BP 150/70
[2019-09-19] MEDS: IPRATROPIUM 0.5MG/ALBUTEROL 2.5MG INH SOL UD 3ML (DUONEB)(J7620) NEB SCH ×6 (04:00→23:00)
[2019-09-19] MEDS: SLF 3 ML SYR IV SCH ×3 (05:58→20:44)
[2019-09-19] MEDS: LEVOTHYROXINE 75MCG TABLET (0.075MG) PO SCH (05:58)
[2019-09-19 06:22] LABS: BASO % 0.3 % (0.0-1.0); EOS % 0.2 % (0.0-3.0); HEMATOCRIT 45.3 % (42.0-52.0); HEMOGLOBIN 14.4 g/dl (13.5-17.5); LYMPH # 2.6 10^3/uL (1.5-5.0); LYMPH % 22.2 % (24.0-44.0); MEAN CORPUSCULAR HEMOGLOBIN 29.6 pg (27.0-33.0); MEAN CORPUSCULAR HGB CONC 31.8 g/dl (32.0-36.5); MONO # 1.3 10^3/uL (0.0-0.8); MONO % 11.1 % (0.0-5.0); NEUTROPHILS # 7.7 10^3/uL (1.5-8.5); NEUTROPHILS % 64.9 % (36.0-66.0); PLATELET COUNT, AUTOMATED 155 10^3/uL (150-450); RED BLOOD COUNT 4.87 10^6/uL (4.30-6.10); WHITE BLOOD COUNT 11.8 10^3/uL (4.0-10.0)
[2019-09-19 06:53] LABS: BLOOD UREA NITROGEN 32 MG/DL (7-18); CALCIUM LEVEL 9.4 MG/DL (8.8-10.2); CARBON DIOXIDE LEVEL 33 MEQ/L (21-32); CHLORIDE LEVEL 97 MEQ/L (98-107); CREATININE FOR GFR 0.97 MG/DL (0.70-1.30); GLOMERULAR FILTRATION RATE > 60.0 (>35); GLUCOSE, FASTING 158 MG/DL (70-100); POTASSIUM SERUM 3.5 MEQ/L (3.5-5.1); SODIUM LEVEL 137 MEQ/L (136-145)
[2019-09-19 08:00] VITALS: BP 188/72
[2019-09-19] MEDS: SYMBICORT 160/4.5MCG INHALER 6GM INH SCH ×2 (08:24→20:23)
[2019-09-19] MEDS: ASPIRIN 81 MG CHEW TABLET PO SCH (09:02)
[2019-09-19] MEDS: predniSONE 20 MG TAB PO SCH (09:02)
[2019-09-19] MEDS: HumaLOG INSULIN (NovoLOG) PER UNIT SC SCH ×4 (09:02→20:36)
[2019-09-19] MEDS: lisinopriL 10 MG TAB PO SCH ×2 (09:02→20:41)
[2019-09-19] MEDS: TAMSULOSIN 0.4 MG CAP PO SCH (09:05)
[2019-09-19] MEDS: METOPROLOL TART 25 MG TABLET PO SCH ×2 (09:05→20:40)
[2019-09-19] MEDS: DULoxetine 20 MG CAP (CYMBALTA) PO SCH ×2 (09:05→20:37)
[2019-09-19] MEDS: amLODIPine 5 MG TAB PO SCH (09:06)
[2019-09-19] MEDS: rOPINIRole 1MG TAB PO SCH ×2 (09:07→20:37)
[2019-09-19] MEDS: metFORMIN XR 500MG TAB *GLUCOPHAGE XR PO SCH ×2 (09:07→17:42)
[2019-09-19] MEDS: FERROUS SULFATE 325MG TAB PO SCH ×2 (09:07→20:40)
[2019-09-19] MEDS: DIVALPROEX 500MG *ER* TAB PO SCH ×2 (09:07→20:36)
[2019-09-19] MEDS: LACTOBACILLUS ACIDOPHILUS CAP (BACID) PO SCH ×2 (09:07→17:42)
[2019-09-19] MEDS: SODIUM CHLORIDE 0.9% NASAL GEL 15GM (AYR) SCH ×4 (09:09→20:36)
[2019-09-19 12:00] VITALS: BP 178/86
[2019-09-19] MEDS: levETIRAcetam 250MG TABLET (KEPPRA) PO SCH (12:54)
[2019-09-19] MEDS: SITagliptin 50 MG TAB (JANUVIA) PO SCH (12:55)
[2019-09-19] MEDS: ATORVASTATIN 20 MG TAB PO SCH (12:55)
--- NOTE | 2019-09-19 14:54 | IPN ---
DATE: 09/19/2019 Roge has rebounded dramatically since yesterday. He is more alert. He is visiting with about a dozen family members who are in there. He says that he feels the best that he has in quite a while. Family has dropped plans for hospice care. PHYSICAL EXAMINATION: VITAL SIGNS: 138/79, pulse 98. GENERAL APPEARANCE: Alert, conversant. Recognizes me. He is quite alert and fully able to make his own decisions (see below). He is able to eat without coughing. LUNGS: Wheezes in all morrison with good air movement. HEART: Regular rhythm. ABDOMEN: Soft, nontender. EXTREMITIES: Trace peripheral edema. LABORATORIES: BUN is up to 32, potassium is 3.5, white count is 11.8. Blood sugars have been in the 200 range. IMPRESSION: 1. Chronic obstructive pulmonary disease (COPD) exacerbation secondary to RSV. He is off antibiotic. He has some improvement today. It is hard to tell if this is a beginning of a rebound or just the patient rallying for a few days, as sometimes happens after discussions of end of life care. Family has dropped the plans for hospice care (see below). 2. Diarrhea. He has chronic diarrhea at home secondary to recent therapy for proctitis. Family is asking to resume an antidiarrheal agent. I would like to make sure that he does not have Clostridium (C.) difficile first. I have ordered a C difficile and if this comes back negative then he can start antidiarrheal medicine. I went through his office chart. I do not see where he is on anything by prescription for diarrhea, so maybe something over the counter. In any case, we should wait to make sure that his C difficile is negative before starting anything. 3. Severe chronic obstructive pulmonary disease (COPD) with exacerbation. He has severe COPD. Yesterday the family and I met for a long time and they wanted to pursue placement in the hospice residence. Today, the patient is markedly improved and they are asking to have him discharged to home after he has some rehabilitation. 4. Advanced directives. Having dropped the plans for hospice residence, they did ask me to readdress his Medical Orders for Life Sustaining Treatment (MOLST) form. He has one from 2017 in the chart. They wanted this updated. Roge is fully able to make his own decisions today and he not only recognized me immediately, he remember having made out a MOLST form "a couple of years ago." The patient's status, per his request, is now: DO NOT RESUSCITATE, DO NOT INTUBATE, trial of noninvasive ventilation, trial of tube feeding are both acceptable, IV fluids, antibiotics and hospitalization are acceptable. 5. Diabetes. Blood sugar is a little elevated still from the steroids. Continue coverage. 6. Hypertension. Blood pressure is under better control on augmented regimen. 7. Severe spinal stenosis with leg weakness, bowel and urinary incontinence. He will need short term rehabilitation before he is able to go home. He understands that he will not be going home from the hospital but will need some rehabilitation. I wanted to address the sputum culture. He is on an inhaled corticosteroid, which accounts for the yeast-like organism in his sputum. The Pseudomonas was only a few colonies suggesting colonization and not infection. I do not think that either of these need directed treatment.
[2019-09-19 16:00] VITALS: BP 185/77
[2019-09-19 20:00] VITALS: BP 176/76
[2019-09-19] MEDS: FUROSEMIDE 20 MG TAB PO SCH (20:40)
[2019-09-20] VITALS (7 sets, daily range): BP systolic 158–190; BP diastolic 62–80
[2019-09-20] MEDS: IPRATROPIUM 0.5MG/ALBUTEROL 2.5MG INH SOL UD 3ML (DUONEB)(J7620) NEB SCH ×6 (04:00→23:57)
[2019-09-20] MEDS: SLF 3 ML SYR IV SCH ×3 (06:03→22:00)
[2019-09-20] MEDS: LEVOTHYROXINE 75MCG TABLET (0.075MG) PO SCH (06:03)
[2019-09-20 07:06] LABS: BASO # 0.1 10^3/uL (0.0-0.2); BASO % 0.4 % (0.0-1.0); EOS % 0.1 % (0.0-3.0); HEMATOCRIT 45.6 % (42.0-52.0); HEMOGLOBIN 14.5 g/dl (13.5-17.5); LYMPH # 2.8 10^3/uL (1.5-5.0); LYMPH % 16.1 % (24.0-44.0); MEAN CORPUSCULAR HEMOGLOBIN 29.7 pg (27.0-33.0); MEAN CORPUSCULAR HGB CONC 31.8 g/dl (32.0-36.5); MEAN CORPUSCULAR VOLUME 93.4 fl (80.0-96.0); MONO # 1.5 10^3/uL (0.0-0.8); MONO % 8.6 % (0.0-5.0); NEUTROPHILS # 12.6 10^3/uL (1.5-8.5); NEUTROPHILS % 73.4 % (36.0-66.0); PLATELET COUNT, AUTOMATED 178 10^3/uL (150-450); RED BLOOD COUNT 4.88 10^6/uL (4.30-6.10); WHITE BLOOD COUNT 17.2 10^3/uL (4.0-10.0)
[2019-09-20 07:28] LABS: BLOOD UREA NITROGEN 27 MG/DL (7-18); CARBON DIOXIDE LEVEL 31 MEQ/L (21-32); CHLORIDE LEVEL 100 MEQ/L (98-107); CREATININE FOR GFR 0.88 MG/DL (0.70-1.30); GLOMERULAR FILTRATION RATE > 60.0 (>35); GLUCOSE, FASTING 226 MG/DL (70-100); POTASSIUM SERUM 3.4 MEQ/L (3.5-5.1); SODIUM LEVEL 138 MEQ/L (136-145)
[2019-09-20] MEDS: SYMBICORT 160/4.5MCG INHALER 6GM INH SCH ×2 (08:19→19:54)
[2019-09-20] MEDS: metFORMIN XR 500MG TAB *GLUCOPHAGE XR PO SCH ×2 (08:31→17:41)
[2019-09-20] MEDS: ASPIRIN 81 MG CHEW TABLET PO SCH (08:33)
[2019-09-20] MEDS: METOPROLOL TART 25 MG TABLET PO SCH ×2 (08:33→20:26)
[2019-09-20] MEDS: DIVALPROEX 500MG *ER* TAB PO SCH ×2 (08:33→20:26)
[2019-09-20] MEDS: LACTOBACILLUS ACIDOPHILUS CAP (BACID) PO SCH ×2 (08:33→17:41)
[2019-09-20] MEDS: amLODIPine 5 MG TAB PO SCH (08:33)
[2019-09-20] MEDS: rOPINIRole 1MG TAB PO SCH ×2 (08:33→20:22)
[2019-09-20] MEDS: TAMSULOSIN 0.4 MG CAP PO SCH (08:34)
[2019-09-20] MEDS: DULoxetine 20 MG CAP (CYMBALTA) PO SCH ×2 (08:34→20:26)
[2019-09-20] MEDS: lisinopriL 10 MG TAB PO SCH ×2 (08:34→20:27)
[2019-09-20] MEDS: predniSONE 20 MG TAB PO SCH (08:34)
[2019-09-20] MEDS: HumaLOG INSULIN (NovoLOG) PER UNIT SC SCH ×4 (08:35→20:22)
[2019-09-20] MEDS: FERROUS SULFATE 325MG TAB PO SCH ×2 (08:36→20:26)
[2019-09-20] MEDS: SODIUM CHLORIDE 0.9% NASAL GEL 15GM (AYR) SCH ×4 (08:37→20:27)
[2019-09-20 10:41] LABS: CLOSTRIDIUM DIFFICILE PCR NEGATIVE (NEGATIVE)
[2019-09-20] MEDS: ATORVASTATIN 20 MG TAB PO SCH (12:30)
[2019-09-20] MEDS: levETIRAcetam 250MG TABLET (KEPPRA) PO SCH (12:30)
[2019-09-20] MEDS: SITagliptin 50 MG TAB (JANUVIA) PO SCH (12:30)
[2019-09-20] MEDS ORDERED: amLODIPine 5 MG TAB PO ONE (14:15)
--- NOTE | 2019-09-20 19:07 | IPNPDOC ---
Subjective Date Seen The patient was seen on 09/20/19. Subjective Chief Complaint/HPI Seen with family at bedside. Patient is a poor historian, but expresses a desire to go home. Family notes that he has been more tired than yesterday, though still improved from a couple days ago. Constitutional: Denies: Chills, Fever Pulmonary: Reports: Cough; Denies: Dyspnea Cardiovascular: Denies: Chest Pain, Palpitations Gastrointestinal: Denies: Nausea, Vomiting, Diarrhea, Constipation Musculoskeletal: Reports: Other Symptoms (has been moving about in the room) Objective Physical Examination General Exam: Positive: Alert, No Acute Distress ENT Exam: Positive: Mucous membr. moist/pink Chest Exam: Positive: Wheezing (faint end exp wheezes), Diminished (quite); Negative: Clear to auscultation, Normal air movement Heart Exam: Positive: Rate Normal, Regular Rhythm, Normal S1, Normal S2; Negative: Murmurs, Rubs Telemetry: Positive: No significant arrhythmia Abdomen Exam: Positive: Normal bowel sounds, Soft; Negative: Tenderness, Hepatospenomegaly Extremity Exam: Negative: Edema Neuro Exam: Positive: Normal Speech Psych Exam: Positive: Mental status NL, Mood NL, Oriented x 3 Assessment /Plan Problems (1) COPD exacerbation Status: Acute Response to Treatment: Improving Problem Text: 09/20 -- increased leukocytosis, possibly secondary to steroids but also possibly secondary to infection; will monitor for now. 09/18 changed from SM to PO pred 40 mg to be given today. Procalcitonin level pending. Sputum culture + pseudomonas, yeast, will address with attending treatment, given pt appears to have had clinical improvement and WBC has trended down, Pseudomonas at least is likely colonization (few on culture), yeast was heavy. 09/17 decreased steroid to po prednisone 40 mg po daily. DC Zosyn due to delirium. Procalcitonin ordered. Sputum cx remains pending. (2) RSV (respiratory syncytial virus infection) Status: Acute Response to Treatment: Improving (3) Hypertensive urgency Status: Acute Response to Treatment: Improving Problem Text: 09/20 -- he remains hypertensive, and I increased his amlodipine Pressure remain elevated, lisinopril increase yest from 5 mg BID to 10 mG BID, will add Amlodipine this morning. (4) Congestive heart failure (CHF) Permanent Comment: EF: 60% IMPRESSION: 1. Normal global left ventricular systolic function with mild concentric left ventricular hypertrophy. Not mentioned above, the anterior septum appeared to be dyskinetic, but was dell well. 2. Mildly calcified aortic valve with trivial aortic stenosis, but no aortic regurgitation. 3. Mitral annulus calcification without any evidence of significant mitral regurgitation or mitral stenosis. The left atrium is mildly enlarged, probably related to underlying left ventricular diastolic dysfunction. 4. The study was technically limited due to poor acoustic window secondary to body habitus. DD: MÓNICA DELACRUZ MD 01/30/19 2247 DT: JOSUE 01/31/19 0642 DS: GONZALEZ 02/11/19122 <Electronically signed by MÓNICA DELACRUZ MD> 02/11/19122 Last Edited By: Trish Kyle NP on Aug 12, 2019 08:36 Status: Chronic Plan/VTE VTE Prophylaxis Ordered?: Yes Plan Advance Directives: DNR VS, I&O, 24H, Fishbone Vital Signs/I&O Vital Signs Date Time Temp Pulse Resp B/P (MAP) Pulse Ox O2 Delivery O2 Flow Rate FiO2 09/20/19 16:30 160/70 (100) 09/20/19 16:29 66 09/20/19 16:00 97.8 20 93 Nasal Cannula 4.0 I&O- Last 24 Hours up to 6 AM 09/20/19 06:00 Intake Total 480 ml Output Total 50 ml Balance 430 ml Laboratory Data 24H LABS Laboratory Tests 2 09/19/19 19:52: Bedside Glucose (Misc Panel) 264H 09/20/19 06:39: Immature Granulocyte % (Auto) 1.4, Neutrophils (%) (Auto) 73.4H, Lymphocytes (%) (Auto) 16.1L, Monocytes (%) (Auto) 8.6H, Eosinophils (%) (Auto) 0.1, Basophils (%) (Auto) 0.4, Neutrophils # (Auto) 12.6H, Lymphocytes # (Auto) 2.8, Monocytes # (Auto) 1.5H, Eosinophils # (Auto) 0.0, Basophils # (Auto) 0.1, Nucleated Red Blood Cells % (auto) 0.0, Anion Gap 7L, Glomerular Filtration Rate > 60.0, C alcium Level 9.0 09/20/19 07:39: Clostridium difficile [id number] PRESUMPTIVE NEGATIVE, Clostridium difficile Toxin (PCR) NEGATIVE 09/20/19 11:52: Bedside Glucose (Misc Panel) 280H 09/20/19 17:21: Bedside Glucose (Misc Panel) 270H CBC/BMP Laboratory Tests 09/20/19 06:39 Microbiology Microbiology 09/16/19 Gram Stain - Final, Complete 09/16/19 Sputum Culture - Final, Complete Pseudomonas Aeruginosa Yeast Like Organism 09/15/19 Blood Culture - Final, Complete NO GROWTH AFTER 5 DAYS 09/15/19 Respiratory Virus Panel (PCR) (PAMELA) - Final, Complete Respiratory Syncytial Virus 09/15/19 Blood Culture - Final, Complete NO GROWTH AFTER 5 DAYS ZEFERINO TINAJERO DO Sep 20, 2019 19:07
[2019-09-20] MEDS: FUROSEMIDE 20 MG TAB PO SCH (20:27)
[2019-09-21 04:00] VITALS: BP 188/78
[2019-09-21] MEDS: IPRATROPIUM 0.5MG/ALBUTEROL 2.5MG INH SOL UD 3ML (DUONEB)(J7620) NEB SCH ×4 (04:00→16:00)
[2019-09-21 05:53] LABS: BASO # 0.1 10^3/uL (0.0-0.2); BASO % 0.7 % (0.0-1.0); EOS % 0.2 % (0.0-3.0); HEMATOCRIT 47.3 % (42.0-52.0); HEMOGLOBIN 14.9 g/dl (13.5-17.5); LYMPH # 3.2 10^3/uL (1.5-5.0); LYMPH % 16.8 % (24.0-44.0); MEAN CORPUSCULAR HEMOGLOBIN 29.4 pg (27.0-33.0); MEAN CORPUSCULAR HGB CONC 31.5 g/dl (32.0-36.5); MEAN CORPUSCULAR VOLUME 93.3 fl (80.0-96.0); MONO # 1.5 10^3/uL (0.0-0.8); NEUTROPHILS # 13.8 10^3/uL (1.5-8.5); NEUTROPHILS % 72.5 % (36.0-66.0); PLATELET COUNT, AUTOMATED 198 10^3/uL (150-450); RED BLOOD COUNT 5.07 10^6/uL (4.30-6.10)
[2019-09-21] MEDS: SLF 3 ML SYR IV SCH ×2 (06:00→14:00)
[2019-09-21 06:19] LABS: BLOOD UREA NITROGEN 24 MG/DL (7-18); CARBON DIOXIDE LEVEL 31 MEQ/L (21-32); CHLORIDE LEVEL 101 MEQ/L (98-107); GLOMERULAR FILTRATION RATE > 60.0 (>35); GLUCOSE, FASTING 185 MG/DL (70-100); POTASSIUM SERUM 3.5 MEQ/L (3.5-5.1); SODIUM LEVEL 139 MEQ/L (136-145)
[2019-09-21] MEDS: LEVOTHYROXINE 75MCG TABLET (0.075MG) PO SCH (06:45)
[2019-09-21 08:00] VITALS: BP 136/76
[2019-09-21] MEDS: HumaLOG INSULIN (NovoLOG) PER UNIT SC SCH ×3 (08:27→17:30)
[2019-09-21] MEDS: DIVALPROEX 500MG *ER* TAB PO SCH (08:28)
[2019-09-21] MEDS: ASPIRIN 81 MG CHEW TABLET PO SCH (08:28)
[2019-09-21] MEDS: metFORMIN XR 500MG TAB *GLUCOPHAGE XR PO SCH ×2 (08:28→17:50)
[2019-09-21] MEDS: DULoxetine 20 MG CAP (CYMBALTA) PO SCH (08:28)
[2019-09-21] MEDS: rOPINIRole 1MG TAB PO SCH (08:28)
[2019-09-21] MEDS: LACTOBACILLUS ACIDOPHILUS CAP (BACID) PO SCH ×2 (08:28→17:47)
[2019-09-21 08:29] VITALS: BP 136/76
[2019-09-21] MEDS: FERROUS SULFATE 325MG TAB PO SCH (08:29)
[2019-09-21] MEDS: METOPROLOL TART 25 MG TABLET PO SCH (08:29)
[2019-09-21] MEDS: lisinopriL 10 MG TAB PO SCH (08:29)
[2019-09-21] MEDS: predniSONE 20 MG TAB PO SCH (08:29)
[2019-09-21] MEDS: TAMSULOSIN 0.4 MG CAP PO SCH (08:31)
[2019-09-21] MEDS: SODIUM CHLORIDE 0.9% NASAL GEL 15GM (AYR) SCH ×3 (08:32→17:00)
[2019-09-21] MEDS: SYMBICORT 160/4.5MCG INHALER 6GM INH SCH (09:00)
[2019-09-21] MEDS ORDERED: amLODIPine 5 MG TAB PO SCH (09:00)
[2019-09-21] MEDS ORDERED: amLODIPine 10 MG TAB PO SCH ×2 (09:00)
[2019-09-21 12:00] VITALS: BP 190/78
[2019-09-21] MEDS: SITagliptin 50 MG TAB (JANUVIA) PO SCH (12:27)
[2019-09-21] MEDS: levETIRAcetam 250MG TABLET (KEPPRA) PO SCH (12:27)
[2019-09-21] MEDS: ATORVASTATIN 20 MG TAB PO SCH (12:27)
[2019-09-21] MEDS ORDERED: PRED20TA PO (14:20)
[2019-09-21] MEDS ORDERED: AMLO10TA5 PO (14:20)
--- NOTE | 2019-10-21 19:06 | DS.PDOC ---
Discharge Summary General Date of Admission Sep 15, 2019 at 15:19 Date of Discharge September 21, 2019 Primary Care Physician: MARLEEN LUCIO PA-C Attending Physician: ZEFERINO TINAJERO DO Discharge Summary PROCEDURES PERFORMED DURING STAY: [None]. ADMITTING DIAGNOSES: 1. Hypertensive urgency. 2. COPD exacerbation. 3. Respiratory syncytial virus (RSV). 4. History of coronary artery disease and coronary artery bypass graft (CABG) 5. Type 2 diabetes 6. Hypothyroidism 7. Dyslipidemia 8. History of migraines and history of seizure disorder 9. History of prostate cancer DISCHARGE DIAGNOSES: 1. Hypertensive urgency. 2. COPD exacerbation. 3. Respiratory syncytial virus (RSV). 4. History of coronary artery disease and coronary artery bypass graft (CABG) 5. Type 2 diabetes 6. Hypothyroidism 7. Dyslipidemia 8. History of migraines and history of seizure disorder 9. History of prostate cancer COMPLICATIONS/CHIEF COMPLAINT: Hypertensive Urgency. HISTORY OF PRESENT ILLNESS: 84-year-old male with a known history of chronic obstructive pulmonary disease (COPD), congestive heart failure (CHF), diastolic dysfunction, chronic home oxygen dependent with 2 liters, lives at home and was recently treated for right lower lobe pneumonia in July 2019, presents with several day history of cough productive of white, thick sputum that started Sunday night, unable to sleep well. No fever. The patient also complains of generalized weakness and a fall forward today due to severe weakness from a cough and difficulty sleeping. The patient usually goes to the diner every morning to have coffee and did not go to the diner today. The patient's made him some poached eggs and as he was walking towards to eat breakfast he went down forward on his knees because of generalized weakness. The called everyone to come and help. They then placed him in a wheelchair. They called Dr. Lucio's office to try to see if they could get him in today or tomorrow and they said that there were no openings. They told them to come straight to the emergency room. Over the past 2 days, the patient has been using his nebulizers every 4 hours, as well as inhalers with no improvement. He had an episode of nausea and vomiting on Sunday evening, no diarrhea, headaches or changes in vision. No diplopia. Denies any chest pain, pressure, tightness, lightheadedness, or dizziness prior to his fall. The gave him [place] yesterday with no improvement. In the emergency room, he was found to have a blood pressure of 205/86. He was given IV labetalol, as well as his home medications. He currently denies any weight gain or weight loss. He usually weighs around 214 pounds. He does not weigh himself at home. Appetite has been the same, a little bit change since Sunday but not dysphagia or odynophagia. The patient denies any paresthesias, bilateral upper or lower extremities. HOSPITAL COURSE: Patient was admitted to the hospital, and treated for a COPD exacerbation. He was initially covered with Zosyn, and received steroids (IV and then PO.) At one point the patient and family considered FIELD SCOUT status and hospice care for this patient. However, his cognitive and respiratory statuses did improve, and these plans were dropped. His WBCs did trend upward, likely secondary to the steroids, though he clinically appeared to be improving. His antihypertensives were adjusted, though his BP was much improved as his respiratory status improved. By September 21 he wanted to go home, and family felt that they could care for him in that environment, and the patient was discharged. DISCHARGE MEDICATIONS: Please see below. ALLERGIES: Please see below. PHYSICAL EXAMINATION ON DISCHARGE: VITAL SIGNS: Please see below. GENERAL: elderly male, chronically ill HEENT: mucous membranes moist NECK: supple CARDIOVASCULAR EXAMINATION: regular rate and rhythm RESPIRATORY EXAMINATION: occasional cough, nonlabored ABDOMINAL EXAMINATION: soft, NT/ND LABORATORY DATA: Please see below. IMAGING: Head CT: No acute intracranial findings Chest CT: 1. Mild right lower lobe atelectasis/infiltrate improved compared to 08/11/2019. 2. Chronic stable changes. 3. No new acute process identified. PROGNOSIS: guarded, secondary to underlying severe COPD ACTIVITY: [As tolerated]. DIET: consistent carb DISCHARGE PLAN: home DISPOSITION: Home, Self-Care. DISCHARGE INSTRUCTIONS: 1. F/u with Dr. Lucio within one week, call on Sunday for appt. Take all medications as prescribed. Contact the office with any chest pain/pressure/tightness, dyspnea, or any other concerns. ITEMS TO FOLLOWUP ON ON OUTPATIENT: 1. BP 2. COPD DISCHARGE CONDITION: [Stable]. TIME SPENT ON DISCHARGE: Greater than 10 minutes. Discharge Medications Scheduled Amlodipine Besylate (Amlodipine Besylate) 10 Mg Tablet, 10 MG PO DAILY Aspirin (Aspirin EC) 81 Mg Tablet.dr, 81 MG PO DAILY, (Reported) Atorvastatin Calcium (Atorvastatin Calcium) 40 Mg Tablet, 40 MG PO DAILY, (Reported) TAKES @ LUNCH Azelastine/Fluticasone (Dymista Nasal [place]) 23 Gm [place].pump, 1 SPRAY NA BID, (Reported) Budesonide/Formoterol (Symbicort 160-4.5 Mcg Inhaler) 6 Gm Hfa.aer.ad, 2 PUFF INH BID, (Reported) Cyclosporine (Restasis) 0.05 % Emu, 1 DROP OU BID, (Reported) Divalproex Sodium (Depakote ER) 500 Mg Tab, 500 MG PO BID, (Reported) Duloxetine HCl (Cymbalta) 20 Mg Cap, 20 MG PO BID, (Reported) Ferrous Sulfate (Ferrous Sulfate) 325 Mg Tablet, 325 MG PO BID, (Reported) Furosemide (Furosemide) 40 Mg Tablet, 20 MG PO QHS, (Reported) Isosorbide Mononitrate (Isosorbide Mononitrate ER) 30 Mg Tab, 30 MG PO DAILY, (Reported) TAKES AT NOON Levetiracetam (Keppra) 1,000 Mg Tab, 1,000 MG PO DAILY, (Reported) TAKES AT NOON Levothyroxine Sodium (Levoxyl) 75 Mcg Tablet, 75 MCG PO DAILY, (Reported) Lisinopril (Lisinopril) 5 Mg Tab, 5 MG PO QPM, (Reported) Metformin HCl (Metformin HCl ER) 500 Mg Tab.er.24h, 500 MG PO BID, (Reported) Metoprolol Tartrate (Metoprolol Tartrate) 25 Mg Tab, 25 MG PO BID, (Reported) Oxybutynin Chloride (Oxybutynin Chloride ER) 10 Mg Tab.er.24, 10 MG PO DAILY, (Reported) Pantoprazole Sodium (Pantoprazole Sodium) 40 Mg Tab, 40 MG PO DAILY, (Reported) TAKES @ LUNCH Prednisone (Prednisone) 20 Mg Tablet, 10 MG PO DAILY Take 3 tabs daily x 3 days, then 2 tabs daily x 3 days, then 1 tab daily x 3 days, then 1/2 tabs daily x 4 days. Ropinirole HCl (Ropinirole HCl) 1 Mg Tablet, 1 MG PO DAILY, (Reported) Ropinirole HCl (Ropinirole HCl) 1 Mg Tablet, 2 MG PO QHS, (Reported) Sitagliptin Phosphate (Januvia) 100 Mg Tablet, 100 MG PO DAILY, (Reported) TAKES @ LUNCH Tamsulosin HCl (Flomax) 0.4 Mg Cap, 0.4 MG PO DAILY, (Reported) Vit C/E/Zn/Coppr/Lutein/Zeaxan (Preservision Areds 2 Softgel) 1 Each Capsule, 1 CAP PO BID, (Reported) Scheduled PRN Albuterol Sulf (Albuterol Sulfate) 2.5 Mg/3 Ml Nebu, 2.5 MG INH QID PRN for COPD, (Reported) Ipratropium/Albuterol Sulfate (Combivent Respimat 20-100 Mcg) 4 Gm Mist.inhal, 1 PUFF INH QID PRN for COPD, (Reported) Allergies Coded Allergies: ciprofloxacin (Verified Adverse Reaction, Mild, AMS, 09/15/19) Contrast Media (Verified Adverse Reaction, Unknown, N/V, 09/15/19) cefuroxime (Verified Adverse Reaction, Unknown, AMS, 09/15/19) red dye (Verified Adverse Reaction, Unknown, N/V, 09/15/19) ZEFERINO TINAJERO DO Oct 21, 2019 19:06
== END 2019-09-21 18:17 | disposition home or self-care (01) | DRG 305 ==
LOC: M ED 10:52 → M ED INP 15:19 → M PCU 17:51
PROVIDERS: ADMIT General Practice; ATTEND Family Medicine
DX: I16.0 Hypertensive urgency (principal); J44.1 Chronic obstructive pulmonary disease with (acute) exacerbation; B97.4 Respiratory syncytial virus as the cause of diseases classified elsewhere; I25.10 Atherosclerotic heart disease of native coronary artery without angina pectoris; Z95.1 Presence of aortocoronary bypass graft; Z79.82 Long term (current) use of aspirin; E11.9 Type 2 diabetes mellitus without complications; E03.9 Hypothyroidism, unspecified; E78.5 Hyperlipidemia, unspecified; G43.909 Migraine, unspecified, not intractable, without status migrainosus; G40.909 Epilepsy, unspecified, not intractable, without status epilepticus; Z85.46 Personal history of malignant neoplasm of prostate; Z79.51 Long term (current) use of inhaled steroids; Z79.84 Long term (current) use of oral hypoglycemic drugs; Z79.899 Other long term (current) drug therapy; Z88.1 Allergy status to other antibiotic agents; Z91.041 Radiographic dye allergy status; Z91.09 Other allergy status, other than to drugs and biological substances; Z88.8 Allergy status to other drugs, medicaments and biological substances; I11.0 Hypertensive heart disease with heart failure; M48.00 Spinal stenosis, site unspecified; I50.89 Other heart failure; Z66 Do not resuscitate

== ENCOUNTER → 2019-10-29 | Outpatient (REF) | payer MEDICARE, OTHER ==
[~2019-10-29] MED LIST changes: +AMLO10TA5 PO; -GLIM2TAB2 PO; +GLIM2TAB4 PO; -MECL-68 PO; +MECL1TAB31 PO; -OXYB10TA2 PO; +OXYB10TA23 PO
[2019-10-29 16:10] LABS: HEMATOCRIT 42.8 % (42.0-52.0); HEMOGLOBIN 13.5 g/dl (13.5-17.5); MEAN CORPUSCULAR HEMOGLOBIN 30.8 pg (27.0-33.0); MEAN CORPUSCULAR HGB CONC 31.5 g/dl (32.0-36.5); MEAN CORPUSCULAR VOLUME 97.5 fl (80.0-96.0); PLATELET COUNT, AUTOMATED 185 10^3/uL (150-450); RED BLOOD COUNT 4.39 10^6/uL (4.30-6.10); WHITE BLOOD COUNT 10.7 10^3/uL (4.0-10.0)
[2019-10-29 16:24] LABS: ALBUMIN 3.6 GM/DL (3.2-5.2); ALT/SGPT 20 U/L (12-78); BILIRUBIN,TOTAL 0.2 MG/DL (0.2-1.0); BLOOD UREA NITROGEN 16 MG/DL (7-18); CALCIUM LEVEL 9.4 MG/DL (8.8-10.2); CARBON DIOXIDE LEVEL 32 MEQ/L (21-32); CHLORIDE LEVEL 102 MEQ/L (98-107); CHOLESTEROL LEVEL 202 MG/DL (<200); CHOLESTEROL RISK RATIO 6.516 (<5); CREATININE FOR GFR 0.91 MG/DL (0.70-1.30); FERRITIN 116 NG/ML (26-388); FREE T4 0.89 NG/DL (0.76-1.46); GLOMERULAR FILTRATION RATE > 60.0 (>35); GLUCOSE, FASTING 114 MG/DL (70-100); HDL CHOLESTEROL 31 MG/DL (>40); IRON (FE) 58 UG/DL (65-175); NON-HDL-C 171 MG/DL; PERCENT SATURATION 22.1 % (19.7-50.0); POTASSIUM SERUM 4.4 MEQ/L (3.5-5.1); PROSTATIC SPECIFIC AG MONITOR 0.12 NG/ML (< 4.00); SODIUM LEVEL 142 MEQ/L (136-145); TOTAL IRON BINDING CAPACITY 262 UG/DL (250-450); TOTAL PROTEIN 7.7 GM/DL (6.4-8.2); TRIGLYCERIDES LEVEL 595 MG/DL (<150)
[2019-10-29 16:29] LABS: HEMOGLOBIN A1c 8.6 %
== END ==
LOC: M SFHCADAM 13:42
PROVIDERS: ATTEND Family Medicine
DX: K62.7 Radiation proctitis (principal); D50.9 Iron deficiency anemia, unspecified; E78.5 Hyperlipidemia, unspecified; E03.9 Hypothyroidism, unspecified; E11.40 Type 2 diabetes mellitus with diabetic neuropathy, unspecified; C61 Malignant neoplasm of prostate
CPT/HCPCS: 80053; 80061; 82728; 83036; 83550; 84153; 84439; 84443; 85027; 85046; G0463

== ENCOUNTER → 2020-03-18 | Outpatient (REF) | payer MEDICARE, OTHER ==
[~2020-03-18] MED LIST changes: +ACET650T61 PO; -AMLO10TA5 PO; +AMLO1TAB25 PO; -METF-791 PO; +METF-838 PO; +PANT40TA29 PO; -PANT40TA3 PO; -ROPI1TAB PO; +ROPI1TAB3 PO; -TYLE650T35 PO
[2020-03-18 17:42] LABS: HEMOGLOBIN 13.2 g/dl (13.5-17.5); MEAN CORPUSCULAR HEMOGLOBIN 29.7 pg (27.0-33.0); MEAN CORPUSCULAR HGB CONC 31.4 g/dl (32.0-36.5); MEAN CORPUSCULAR VOLUME 94.4 fl (80.0-96.0); PLATELET COUNT, AUTOMATED 185 10^3/uL (150-450); RED BLOOD COUNT 4.45 10^6/uL (4.30-6.10)
[2020-03-18 18:03] LABS: ALBUMIN 3.9 GM/DL (3.2-5.2); ALT/SGPT 20 U/L (12-78); BILIRUBIN,TOTAL 0.3 MG/DL (0.2-1.0); BLOOD UREA NITROGEN 18 MG/DL (7-18); CALCIUM LEVEL 9.3 MG/DL (8.8-10.2); CARBON DIOXIDE LEVEL 27 MEQ/L (21-32); CHLORIDE LEVEL 105 MEQ/L (98-107); CHOLESTEROL LEVEL 192 MG/DL (<200); CPK CREATINE PHOSPHOKINASE 69 U/L (39-308); CREATININE FOR GFR 0.91 MG/DL (0.70-1.30); FREE T4 1.23 NG/DL (0.76-1.46); GLOMERULAR FILTRATION RATE > 60.0 (>35); GLUCOSE, FASTING 118 MG/DL (70-100); HDL CHOLESTEROL 30 MG/DL (>40); LDL CHOLESTEROL 99 MG/DL (<100); NON-HDL-C 162 MG/DL; SODIUM LEVEL 141 MEQ/L (136-145); TOTAL PROTEIN 7.9 GM/DL (6.4-8.2); TRIGLYCERIDES LEVEL 313 MG/DL (<150)
== END ==
LOC: M SFHCADAM 15:35
PROVIDERS: ATTEND Family Medicine
DX: E11.40 Type 2 diabetes mellitus with diabetic neuropathy, unspecified (principal); E78.5 Hyperlipidemia, unspecified; E03.9 Hypothyroidism, unspecified; F32.9 Major depressive disorder, single episode, unspecified; R29.898 Other symptoms and signs involving the musculoskeletal system
CPT/HCPCS: 80053; 80061; 82550; 83036; 84439; 84443; 85027; G0463